=== PATIENT | male | born 1960 | race Caucasian/White ===

== ENCOUNTER 2016-10-22 07:43 | Inpatient (IN) | payer MEDICARE, OTHER ==
[~2016-10-22] VITALS: Ht 170.2 cm; Wt 73.0 kg
[~2016-10-22 07:43] MED LIST: BP MEDS; CHOLESTEROL MED; DIABETIC PO; METF500T4 PO; unable to recall
[2016-10-22 08:33] VITALS: Ht 170.2 cm; Wt 73.0 kg
[2016-10-22] MEDS ORDERED: VANCOMYCIN 1 GM (PMX) 250 ML IVPB SCH (09:30)
[2016-10-22 10:46] LABS: INR 0.98; POTASSIUM 5.7 mmol/L (3.5-5.1)
[2016-10-22 10:47] LABS: PARTIAL THROMBOPLASTIN TIME 26.8 Sec (25.0-35.0)
[2016-10-22 10:49] LABS: CREATININE 6.1 mg/dl (0.61-1.24)
[2016-10-22 10:50] LABS: CALCIUM 8.7 mg/dl (8.4-10.2)
--- NOTE | 2016-10-22 10:55 | HP ---
Date/Time of Note Date/Time of Note DATE: 10/22/16 TIME: 10:50 Assessment/Plan Assessment/Plan Assessment/Plan 1. End-stage renal disease: - per Dr Mejía - HD- m-w-f 2. Left upper extremity AV graft may have an infection, possible cellulitis. - Vancomycin per pharmacy - Venous doppler 3. Hypercalcemia - Kayexalate 30 gm po x1 4. Diabetes Mellitus - Glycemic control - Renal diet - dietary consult Heparin for DVT prophylaxis. Protonix for peptic ulcer disease prophylaxis. Further recommendations based on clinical course. Plan of care discussed with patient. Dr Tolbert/ Dr Chepe Mejía/staff HPI/ROS Admit Date/Time Admit Date/Time Oct 22, 2016 at 07:43 Hx of Present Illness Mr. Lynch is a 55-year-old gentleman with a history of end-stage renal disease who had underwent a left upper extremity brachial axillary Acuseal PTFE AV graft creation. Unfortunately, we have not seen the patient for some time as he traveled to [place] and had not followed up for his routine fistula surveillance. It seems that the patient has developed some swelling and redness in the inner part of his left upper arm and possibility of a cellulitis/ graft infection. The patient was referred to us for evaluation as he recently is back in town. At the moment, the patient denies shortness of breath, chest pain, nausea, vomiting, fever or chills. ROS Eyes: no complaints ENT: no complaints Respiratory: no complaints Cardiovascular: no complaints Gastrointestinal: no complaints Genitourinary: no complaints Musculoskeletal: other (Left upper arm pain at AV fistula site) Skin: no complaints Neurologic: no complaints Endocrine: no complaints, other (stated his blood sugar is controlled) Lymphatic: no complaints Psychological: no complaints PMH/Family/Social Past Medical History Medical History: diabetes, high cholesterol Social History Alcohol Use: none Smoking Status: Never smoker Drug Use: none Exam/Review of Systems Exam Constitutional: alert, oriented, well developed Psych: nl mood/affect Head: atraumatic Eyes: EOMI, PERRL, nl conjunctiva, nl sclera ENMT: nl external ears & nose Neck: non-tender Respiratory: clear to auscultation Cardiovascular: nl pulses Gastrointestinal: non-tender, soft Musculoskeletal: nl extremities to inspection Extremities: normal pulses, other ( Left upper extremity has palpable brachial pulse. Motor, sensory intact. Cap refill 2 to 3 seconds. Surgical scars are well healed. The graft has bruit and thrill present. In the inner part of the upper arm and the supra-antecubital region and there is an area that has erythema and induration. No active purulence or drainage at the moment.) Neurological: nl mental status, nl speech Skin: other Lymph: nontender Medications Medications Current Medications Vancomycin HCl 250 ml @ 125 mls/hr ONCE IVPB Last administered on 10/22/16t 10 :15; Admin Dose 125 MLS/HR; Start 10/22/16 at 09:30; Stop 10/22/16 at 11:29 Vancomycin HCl (Vancocin) 250 ml @ 125 mls/hr Q96H IVPB ; Start 10/24/16 at 11: 00 DEVAUGHN BRYANT Oct 22, 2016 10:55
[2016-10-22] MEDS ORDERED: DEXTROSE 50% 50 ML SYRINGE IV PRN ×2 (11:30)
[2016-10-22] MEDS ORDERED: ACETAMINOPHEN 325 MG TAB PO PRN (11:30)
[2016-10-22] MEDS ORDERED: ONDANSETRON 4 MG TAB PO PRN (11:30)
[2016-10-22] MEDS ORDERED: VANCOMYCIN IV PER PHARMACY XX SCH (11:30)
[2016-10-22] MEDS ORDERED: GLUCOSE GEL 15 GRAM TUBE PO PRN ×2 (11:30)
[2016-10-22] MEDS ORDERED: GLUCOSE GEL 15 GRAM TUBE BUCCAL PRN (11:30)
[2016-10-22] MEDS ORDERED: GLUCAGON 1 MG INJ IM PRN (11:30)
[2016-10-22] MEDS ORDERED: HYDROCODONE/APAP (5/325) TAB PO PRN (11:30)
--- NOTE | 2016-10-22 12:09 | CONS ---
DATE OF ADMISSION: 10/22/2016 DATE OF CONSULTATION: 10/22/2016 TYPE OF CONSULTATION: Vascular Surgery. Dear Doctors: Mr. Lynch is a 55-year-old gentleman with a history of end-stage renal disease undergoing d ialysis Monday, , Monday, with a history of left upper extremity AV graft. His fistula i s a brach-axillary Acuseal PTFE graft. He has had no issues over the past couple of months as he donohue s been undergoing appropriate hemodialysis sessions. The patient had presented to our office for ev aluation of his fistula after it was identified the patient has erythema and redness around the area of the inner part of the arm where the graft travels. Suspicion of a cellulitis and possible graft infection. Patient also has tenderness over that area in which he was started on vancomycin at his dialysis center. Further, the patient needed to be admitted for evaluation of possible revision o f his AV graft. At the moment, the patient denies shortness of breath, chest pain, nausea, vomiting, fever or chills . Denies left upper extremity claudication or rest pain-like symptoms. PAST MEDICAL HISTORY: Entails hypertension, hyperlipidemia, diabetes, end-stage renal disease on di alysis Monday, and Monday. PAST SURGICAL HISTORY: Multiple left upper extremity AV fistula creations, bilateral cataract surge ry. SOCIAL HISTORY: History of smoking. Denies current use of alcohol, tobacco or illicit drug use. FAMILY HISTORY: Diabetes and hypertension. PHYSICAL EXAMINATION: GENERAL: Alert and oriented x3. No apparent distress. HEENT: Normocephalic, atraumatic. PERRLA, EOMI. Mucosa moist. NECK: Supple. No carotid bruit. PULMONARY: Clear to auscultation bilaterally. No crackles. CARDIOVASCULAR: S1, S2 present. No murmurs. ABDOMEN: Soft, nontender, nondistended. Bowel sounds positive. EXTREMITIES: Left upper extremity palpable brachial pulse. Motor, sensory intact. Cap refill 2 se conds. Surgical scars are well healed. Graft with bruit and thrill present. On the inner aspect o f the graft in the supra-antecubital region with areas of erythema and tenderness along the line of the graft. ASSESSMENT AND PLAN: End-stage renal disease: It seems that the patient's brachial axillary AV gra ft may have been infected. The patient does have cellulitis in that area in which he will require antibiotic treatments for now. We will plan to obtain a CT scan of the left upper extremity to evaluate for any fluid collection ar ound the graft and to evaluate the flow. Optimize vascular status (BP meds, diet, nutrition, exercise, sugar control, antiplatelets). Discussed findings, plan and management with the patient and he understands. Thank you for allowing us to partake in the care of your patient. Please call with any questions. Dictated By: MATTHEW SALGUERO/GILBERTO Conf#: [id number] DID#: [id number]
[2016-10-22 12:12] LABS: BASOPHILS % 0.4 % (0.0-2.0); EOSINOPHILS # 0.2 10^3/ul (0.0-0.5); EOSINOPHILS % 2.5 % (0.0-7.0); HEMATOCRIT 34.8 % (42.0-52.0); HEMOGLOBIN 12.3 g/dl (14.0-18.0); LYMPHOCYTES # 1.2 10^3/ul (0.8-2.9); LYMPHOCYTES % 13.7 % (15.0-51.0); MEAN CORPUSCULAR HEMOGLOBIN 31.9 pg (29.0-33.0); MEAN CORPUSCULAR HGB CONC 35.4 g/dl (32.0-37.0); MEAN CORPUSCULAR VOLUME 90.3 fl (82.0-101.0); MONOCYTE # 0.7 10^3/ul (0.3-0.9); MONOCYTES % 8.5 % (0.0-11.0); NEUTROPHIL # 6.6 10^3/ul (1.6-7.5); NEUTROPHILS % 74.9 % (39.0-77.0); PLATELET COUNT 261 10^3/UL (140-440); RED BLOOD COUNT 3.85 10^6/ul (4.70-6.10); RED CELL DISTRIBUTION WIDTH 14.9 % (11.5-14.5); UNCORRECTED WBC 8.8 10^3/ul (4.8-10.8); WHITE BLOOD COUNT 8.8 10^3/ul (4.8-10.8)
[2016-10-22 12:14] LABS: CONDITION 1; LH ANALYZER COMMENTS 1
[2016-10-22] MEDS: INSULIN ASPART [NOVOLOG] 3 ML PEN SC SCH ×3 (12:15→21:19)
[2016-10-22] MEDS: DOCUSATE SODIUM 100 MG CAP PO SCH ×2 (13:35→21:17)
[2016-10-22] MEDS: AMLODIPINE 10 MG TAB NGT SCH (13:36)
[2016-10-22] MEDS: HEPARIN 5,000 UNIT/0.5 ML SYG SC SCH ×2 (13:48→21:18)
[2016-10-22 14:30] LABS: CHOL/HDL RATIO 3.2 RATIO
--- NOTE | 2016-10-22 17:03 | RADRPT ---
PROCEDURE: US upper extremity Venous. CLINICAL INDICATION: Left arm swelling TECHNIQUE: Multiple sonographic images of the left upper extremity venous system was obtained util izing grayscale, color-flow, compressive sonography and doppler imaging with augmentation. The imag es were reviewed on a PACS workstation. COMPARISON: None. FINDINGS: There is normal compressibility and flow within the left internal jugular vein, subclavian vein, axi llary vein, brachial, basilic, cephalic, radial and ulnar veins. RPTAT: AA IMPRESSION: No sonographic evidence for venous thrombosis. RPTAT:AAJJ of Marcus Early Physician Date Time Electronically viewed and signed by Physician Maria Elena on 10/22/2016 17:02 ROSARIO/
[2016-10-22 19:29] VITALS: BP 117/59; RESP 16
[2016-10-22] MEDS: ATORVASTATIN 10 MG TAB PO SCH (21:17)
[2016-10-23] MEDS: ACCUCHECK XX SCH (02:00)
[2016-10-23 06:42] LABS: BASOPHILS % 0.4 % (0.0-2.0); EOSINOPHILS # 0.3 10^3/ul (0.0-0.5); EOSINOPHILS % 4.1 % (0.0-7.0); HEMATOCRIT 31.7 % (42.0-52.0); HEMOGLOBIN 11.1 g/dl (14.0-18.0); LYMPHOCYTES # 1.2 10^3/ul (0.8-2.9); LYMPHOCYTES % 15.6 % (15.0-51.0); MEAN CORPUSCULAR HEMOGLOBIN 31.7 pg (29.0-33.0); MEAN CORPUSCULAR HGB CONC 35.2 g/dl (32.0-37.0); MEAN CORPUSCULAR VOLUME 90.1 fl (82.0-101.0); MEAN PLATELET VOLUME 7.8 fl (7.4-10.4); MONOCYTE # 0.6 10^3/ul (0.3-0.9); MONOCYTES % 8.4 % (0.0-11.0); NEUTROPHIL # 5.4 10^3/ul (1.6-7.5); NEUTROPHILS % 71.5 % (39.0-77.0); PLATELET COUNT 254 10^3/UL (140-440); RED BLOOD COUNT 3.51 10^6/ul (4.70-6.10); RED CELL DISTRIBUTION WIDTH 14.6 % (11.5-14.5); UNCORRECTED WBC 7.5 10^3/ul (4.8-10.8); WHITE BLOOD COUNT 7.5 10^3/ul (4.8-10.8)
[2016-10-23 06:45] LABS: CONDITION 1; LH ANALYZER COMMENTS 1
[2016-10-23 06:52] LABS: POTASSIUM 5.4 mmol/L (3.5-5.1)
[2016-10-23 06:55] LABS: CREATININE 7.22 mg/dl (0.61-1.24)
[2016-10-23 06:56] LABS: CALCIUM 8.4 mg/dl (8.4-10.2)
[2016-10-23 07:32] VITALS: BP 137/77; RESP 18
[2016-10-23] MEDS: DOCUSATE SODIUM 100 MG CAP PO SCH ×2 (08:04→21:20)
[2016-10-23] MEDS: AMLODIPINE 10 MG TAB NGT SCH (08:04)
[2016-10-23] MEDS: INSULIN ASPART [NOVOLOG] 3 ML PEN SC SCH ×4 (08:09→21:00)
[2016-10-23] MEDS: HEPARIN 5,000 UNIT/0.5 ML SYG SC SCH ×2 (08:10→21:21)
[2016-10-23] MEDS ORDERED: NA POLYST SULFON 15 GM/60 ML BTL PO ONE (10:00)
[2016-10-23 19:48] VITALS: BP 170/79; RESP 18
[2016-10-23] MEDS: ATORVASTATIN 10 MG TAB PO SCH (21:20)
[2016-10-24 01:00] VITALS: BP 142/70
[2016-10-24] MEDS: ACCUCHECK XX SCH (02:00)
[2016-10-24 07:41] VITALS: BP 126/72; RESP 16
[2016-10-24] MEDS: DOCUSATE SODIUM 100 MG CAP PO SCH ×2 (08:34→20:27)
--- NOTE | 2016-10-24 08:55 | CONS ---
DATE OF ADMISSION: 10/22/2016 DATE OF CONSULTATION: 10/24/2016 TYPE OF CONSULTATION: Nephrology. REFERRING PHYSICIAN: Dr. Alatorre REASON FOR CONSULTATION: Acute hyperkalemia, end-stage renal disease on hemodialysis for maintenanc e hemodialysis. HISTORY OF PRESENT ILLNESS: This is a 55-year-old male with a past medical history of hypertension, diabetes mellitus, history of end-stage renal disease on hemodialysis Monday, Monday, Monday. T he patient was followed up by vascular surgery, Dr. John Ortiz and was noted to have a left up per extremity AV fistula site cellulitis. He was recommended to have IV antibiotics. The patient w as complaining of pain, swelling, erythema over the AV fistula site. He also had acute hyperkalemia with a potassium of 5.7 on admission so the is ordered to have CT chest angiogram to rule out his A V fistula venous system. Patient is noted to have a headache with some shortness of breath, no chest pain, palpitation, headache, dizziness, blurry vision, constipation, diarrhea, dysuria, increased u rinary frequency. REVIEW OF SYSTEMS: Positive for left upper extremity AV fistula site pain, swelling, erythema. REVIEW OF SYSTEMS: Other 12 point review of systems has been obtained and is negative except what i s mentioned in the history of present illness. PAST MEDICAL HISTORY: Hypertension, hyperlipidemia, diabetes mellitus, end-stage renal disease on h emodialysis Monday, Monday, Monday. PAST SURGICAL HISTORY: Left upper extremity AV fistula. SOCIAL HISTORY: No smoking, alcohol or recreational drug use. FAMILY HISTORY: Noncontributory. PHYSICAL EXAMINATION: VITAL SIGNS: Temperature 97.9, heart rate 65, respirations 16, blood pressure 126/72, saturation 97 % on room air. GENERAL: Awake, alert, in no distress. HEENT: Normal. Oropharynx clear. NECK: Supple, no JVD, no lymphadenopathy. LUNGS: Clear to auscultation. No crackles, no wheezes. HEART: S1, S2, with regular rhythm, no murmur. ABDOMEN: Soft, nontender, nondistended. Bowel sounds are present. EXTREMITIES: No clubbing, cyanosis, or edema. NEUROLOGICAL: Nonfocal, intact. PSYCHIATRIC: Appropriate affect and mood. LABORATORY DATA/DIAGNOSTIC IMAGIN. WBC 7.5, hemoglobin 11.1, platelet count is 254. Sodium 139, potassium 5.4, chloride 98, bicarb mellissa 27, BUN 58, creatinine 7.2, glucose 153, calcium 8.4. PT 13, PTT 26.8, INR 0.98, WBC 7.5, hem oglobin 11.1, platelet count is 254. 2. Doppler venous ultrasounds of the left upper extremities, no deep venous thrombosis. IMPRESSION: This is a 55-year-old male who presented with: 1. Left upper extremity AV fistula site cellulitis. 2. Acute hyperkalemia, potassium 5.9. 3. End-stage renal disease on hemodialysis Monday, Monday, Monday. 4. Anemia of chronic renal disease. 5. History of hypertension. 6. History of hyperlipidemia. 7. History of diabetes mellitus. PLAN: Admission to the med/surg floor. Thank you, Dr. Alatorre, for this consultation. 1. I will arrange the patient's hemodialysis today. His regular schedule for dialysis is Monday, , Monday. 2. Plan is to do a CT chest angiogram with contrast prior to the dialysis, so he can get a dialysis immediately after the CT chest angiogram is done. 3. Continue the other home medications. The patient does not remember his home medication list, so I will start the patient on amlodipine 10 mg p.o. daily and we will use clonidine p.r.n. systolic b lood pressure more than 150. 4. The patient is currently seen on the med/surg floor. We will follow the patient along with his c ourse in the hospital. Dictated By: YA HAZEL MD, KP/GILBERTO Conf#: [id number] DID#: [id number]
[2016-10-24] MEDS: AMLODIPINE 10 MG TAB NGT SCH (09:00)
[2016-10-24] MEDS: INSULIN ASPART [NOVOLOG] 3 ML PEN SC SCH ×4 (09:36→20:42)
[2016-10-24] MEDS: HEPARIN 5,000 UNIT/0.5 ML SYG SC SCH ×2 (09:37→20:29)
--- NOTE | 2016-10-24 10:27 | PN ---
Date/Time of Note Date/Time of Note DATE: 10/24/16 TIME: 10:23 Assessment/Plan Lines/Catheters IV Catheter Type (from [facility]): Saline Lock Briggs in Place (from [facility]): No Assessment/Plan Chief Complaint/Hosp Course -End-stage renal disease: It seems that the patient's brach-axillary AV graft may have been infected. The patient does have cellulitis in that area in which he will require antibiotic treatments for now. -We will plan to obtain a CT scan of the left upper extremity to evaluate for any fluid collection around the graft and to evaluate the flow. -Optimize vascular status (BP meds, diet, nutrition, exercise, sugar control, antiplatelets). -Discussed findings, plan and management with the patient and he understands. -Thank you for allowing us to partake in the care of your patient. Please call with any questions. Problems: Subjective 24 Hr Interval Summary no new vascular events overnight. left arm pain has improved with antibiotics Exam/Review of Systems Vital Signs Vitals Vital Signs Date Time Temp Pulse Resp B/P Pulse Ox O2 Delivery O2 Flow Rate FiO2 10/24/16 07:41 97.9 65 16 126/72 97 Intake and Output 10/23/16 10/23/16 10/24/16 14:59 22:59 06:59 Intake Total 1820 ml 1280 ml Balance 1820 ml 1280 ml Exam Free Text/Dictation GENERAL: Alert and oriented x3 PULMONARY: Clear to auscultation bilaterally CARDIOVASCULAR: S1, S2 present ABDOMEN: Soft, nontender, nondistended. Bowel sounds positive. EXTREMITIES: Left upper extremity palpable brachial pulse. Motor, sensory intact. Cap refill 2 seconds. Surgical scars are well healed. Graft with bruit and thrill present. On the inner aspect of the graft in the supra-antecubital region with areas of erythema and tenderness improved Results Result Diagram: 10/23/16 0515 10/23/16 0515 MATTHEW HUGHES MD Oct 24, 2016 10:27
[2016-10-24] MEDS ORDERED: VANCOMYCIN 1 GM (PMX) 250 ML IVPB SCH (11:00)
[2016-10-24] MEDS ORDERED: IOHEXOL 100 ML ONE (15:44)
[2016-10-24] MEDS ORDERED: SOD CHLORIDE 0.9% 100 ML ONE (15:44)
[2016-10-24] MEDS ORDERED: IOHEXOL 350MG/ML 50 ML BTL ONE (15:44)
[2016-10-24] MEDS ORDERED: hydrALAzine 20 MG INJ IV PRN (18:30)
[2016-10-24] MEDS: LEVOFLOXACIN 750 MG TABLET GTB SCH (18:43)
--- NOTE | 2016-10-24 19:22 | CONS ---
DATE OF ADMISSION: 10/22/2016 DATE OF CONSULTATION: 10/24/2016 TYPE OF CONSULTATION: Infectious disease. REASON FOR CONSULTATION: Antibiotic management. HISTORY OF PRESENT ILLNESS: Grayson Lynch is a 55-year-old male with numerous pro blems including end-stage renal disease and now comes in with possible cellulitis of his AV graft. His past problems include: 1. End-stage renal disease. 2. Left upper extremity AV graft. 3. Hypercalcemia. 4. Adult-onset diabetes mellitus. 5. Hypercholesterolemia. Acutely, the patient traveled to [place], did not follow up for his routine fistula surveillance, a nd then developed swelling and redness in the mid part of his left upper arm, possibility of graft c ellulitis/graft infection. He was referred to us for evaluation. On admission, his white count was 8.8, H and H 12.3 and 34.8, platelet count 251,000. White count today is 7.5. BUN and creatinine is 58/7.22. The extremity study shows no sonographic evidence for venous thrombosis. Blood culture s are negative. The patient was started on vancomycin. PAST MEDICAL HISTORY: Operations as outlined. FAMILY HISTORY: Noncontributory. SOCIAL HISTORY: He does not smoke, drink, or abuse drugs. ALLERGIES: NONE TO PENICILLIN, SULFA, OR FOODS. MEDICATIONS: Per chart. REVIEW OF SYSTEMS: As per HPI. PHYSICAL EXAMINATION: GENERAL: The patient is a well-developed, well-nourished male who is alert, responsive, in no acute distress. VITAL SIGNS: Stable. He is afebrile. SKIN: Without generalized rash. HEENT: Within normal limits. NECK: Supple. LYMPH NODES: None palpable. CHEST: Decreased breath sounds at the bases. HEART: Without murmur or gallop. ABDOMEN: Soft, nontender without organosplenomegaly or masses. EXTREMITIES: Normal pulses. His left upper extremity has palpable brachial pulse. Surgical scars are well healed. Graft has a bruit and thrill. In the inner part of the arm and antecubital region , there is an area of erythema and induration. No active purulence. RECTAL AND GENITAL: Deferred. NEUROLOGIC: No focal neurological abnormality. HOSPITAL COURSE: The patient was seen in consultation by Dr. Ortiz. He felt that the brachial axillary AV graft may have been infected. He had cellulitis in the area, which will require treatme nt for now. A CT scan of the left upper extremity was ordered to evaluate any fluid collection arou nd the graft and to evaluate the flow. He was seen today by Dr. Ortiz and his white count is 7. 5. The erythema and tenderness have improved somewhat for today. We will await the CT scan. I hui l dictate my findings to Dr. Ya Mejía and Dr. Ortiz. Dictated By: VIRGIE MADISON MD, JD/NTS Conf#: [id number] DID#: [id number] CC: YA MEJÍA MD;*EndCC*
[2016-10-24 20:09] VITALS: BP 169/81; RESP 18
[2016-10-24] MEDS: ATORVASTATIN 10 MG TAB PO SCH (20:27)
[2016-10-24] MEDS: VANCOMYCIN 1 GM (PMX) 250 ML IVPB SCH (20:42)
--- NOTE | 2016-10-24 21:41 | PN ---
DATE: 10/24/2016 SUBJECTIVE: Follow up on 55-year-old gentleman with end-stage renal disease. The patient with poss ible infected left upper extremity arteriovenous graft. The patient is currently undergoing hemodia lysis. Denies any fever, denies chills, denies nausea, vomiting, constipation, diarrhea. OBJECTIVE: VITAL SIGNS: Temperature 97.9, pulse is 65, blood pressure 116/72, respiratory rate 16, oxygen satu ration 97% on room air. GENERAL: Well-developed, well-nourished male in no acute distress. HEENT: Head is atraumatic, normocephalic. PERRLA. NECK: Supple. No mass or thyromegaly. LUNGS: Clear bilaterally. There are no rhonchi, wheezes, rales noted. HEART: Normal S1, S2. No murmurs, gallops, clicks, rubs noted. ABDOMEN: Round, soft, nondistended, nontender. Bowel sounds present. EXTREMITIES: No edema, clubbing, cyanosis. Pulses equal bilaterally. The patient has a left upper extremity with arteriovenous graft. SKIN: No rash, petechiae noted. NEUROLOGIC: The patient is awake, alert, and oriented x3. ASSESSMENT AND PLAN: 1. Cellulitis at the site of arteriovenous graft and possible infection. The patient is currently on vancomycin. Will ask Dr. Peguero to see patient in infectious disease consultation. Continue van comycin and add Levaquin for gram-negative judi coverage. 2. End-stage renal disease. Continue hemodialysis. Dr. Mejía is following the patient in nephrolo gy consultation. 3. Status post right brachial axillary arteriovenous graft done by Dr. Ortiz. Dr. Ortiz is following in vascular surgery consultation. Plan for CT scan of the left upper extremity to evalua te for any fluid collection. 4. Hypertension. Continue Norvasc, clonidine, and hydralazine p.r.n. for systolic blood pressure a yesica 170. 5. Diabetes mellitus type 2 with hemoglobin A1c 7.6. The patient stated that he does not take any diabetes medication. Stated that he is as adequate blood sugar control at home. We will continue N ovoLog per mild algorithm sliding scale. 6. Hyperlipidemia. Continue Lipitor. 7. We will continue heparin for deep venous thrombosis prophylaxis. Further recommendations based on clinical course. Plan of care discussed with Dr. Ivy. Dictated By: KADEEM LEIGH ENVIRONMENTAL HEALTH SPECIALIST for DICKSON IVY MD SR/NTS Conf#: [id number] DID#: [id number] CC: YA MEJÍA MD;*EndCC*
--- NOTE | 2016-10-24 23:14 | RADRPT ---
PROCEDURE: US left upper extremity arterial system. CLINICAL INDICATION: Left upper extremity pain and swelling. Occluded left upper extremity dialysi s graft. TECHNIQUE: Multiple longitudinal and transverse images of the left upper extremity arterial tree a n dialysis graft was obtained with ledbetter scale pulsed Doppler, and color Doppler imaging. COMPARISON: None available FINDINGS: The left subclavian artery, axillary artery and brachial artery are all normal. There is no thrombu s or occlusion. There is no significant stenosis. There is a dialysis graft extending from the left brachial artery to adjacent vein. The graft is co mpletely occluded. Peak systolic velocities are as follows: Subclavian: 99 cm/sec Axillary: 75 cm/sec Brachial: 121 cm/sec Dialysis graft: Occluded. IMPRESSION: 1. Occluded dialysis graft. 2. Otherwise normal arterial system of the left upper extremity. RPTAT: QQ .Dayron Joel MD, Date Time Electronically viewed and signed by .Dayron Joel MD, on 10/24/2016 23:14 .R/
[2016-10-25] VITALS (10 sets, daily range): BP systolic 72–173; BP diastolic 40–92; PULSE 62–78; RESP 18–20
[2016-10-25] MEDS: ACCUCHECK XX SCH (02:23)
[2016-10-25 06:36] LABS: POTASSIUM 5.2 mmol/L (3.5-5.1)
[2016-10-25 06:39] LABS: CALCIUM 7.8 mg/dl (8.4-10.2); CREATININE 7.84 mg/dl (0.61-1.24)
[2016-10-25 06:59] LABS: BASOPHILS % 0.2 % (0.0-2.0); EOSINOPHILS # 0.2 10^3/ul (0.0-0.5); EOSINOPHILS % 1.7 % (0.0-7.0); HEMATOCRIT 33.1 % (42.0-52.0); HEMOGLOBIN 11.4 g/dl (14.0-18.0); LYMPHOCYTES # 0.9 10^3/ul (0.8-2.9); LYMPHOCYTES % 8.6 % (15.0-51.0); MEAN CORPUSCULAR HEMOGLOBIN 31.8 pg (29.0-33.0); MEAN CORPUSCULAR HGB CONC 34.4 g/dl (32.0-37.0); MEAN CORPUSCULAR VOLUME 92.5 fl (82.0-101.0); MEAN PLATELET VOLUME 7.7 fl (7.4-10.4); MONOCYTE # 0.6 10^3/ul (0.3-0.9); MONOCYTES % 5.8 % (0.0-11.0); NEUTROPHIL # 8.4 10^3/ul (1.6-7.5); NEUTROPHILS % 83.7 % (39.0-77.0); PLATELET COUNT 249 10^3/UL (140-440); RED BLOOD COUNT 3.58 10^6/ul (4.70-6.10); RED CELL DISTRIBUTION WIDTH 14.6 % (11.5-14.5)
[2016-10-25 07:13] LABS: CONDITION 1; LH ANALYZER COMMENTS 1
[2016-10-25] MEDS: INSULIN ASPART [NOVOLOG] 3 ML PEN SC SCH ×4 (07:57→20:11)
--- NOTE | 2016-10-25 08:26 | CONS ---
Date/Time of Note Date/Time of Note DATE: 10/25/16 TIME: 08:22 Assessment/Plan Assessment/Plan Additional Assessment/Plan 1. Left upper extremity AV Graft site cellulitis. 2. LUE AVG clotted 2. Acute hyperkalemia 3. End-stage renal disease on hemodialysis Monday, Monday, Monday. 4. Anemia of chronic renal disease. 5. History of hypertension. 6. History of hyperlipidemia. 7. History of diabetes mellitus. Plan: on IV abx Pt left Upper extremity AVG clotted, did not get HD yesterday K 5.2, plan for HD today after juanito catheter placement Dr.Sammy Ortiz is planning to do AVG declotting later after getting HD today will continu eto follow up pt regular schedule for HD is MWF Consultation Date/Type/Reason Admit Date/Time Oct 22, 2016 at 07:43 Initial Consult Date Type of Consultation: NEPHROLOGY Reason for Consultation ESRD on HD, with Clotted AVF and AVG site cellultiis Referring Provider: DICKSON IVY MD 24 HR Interval Summary Free Text/Dictation pt afebrile, no complaints, BP stable, AVG left is clotted,did not get HD yesterday Exam/Review of Systems Vital Signs Vitals Vital Signs Date Time Temp Pulse Resp B/P Pulse Ox O2 Delivery O2 Flow Rate FiO2 10/25/16 07:49 97.7 69 20 148/77 100 Intake and Output 10/24/16 10/24/16 10/25/16 15:00 23:00 07:00 Intake Total 2640 ml 780 ml Balance 2640 ml 780 ml Exam GENERAL: Awake, alert, in no distress. HEENT: Normal. Oropharynx clear. NECK: Supple, no JVD, no lymphadenopathy. LUNGS: Clear to auscultation. No crackles, no wheezes. HEART: S1, S2, with regular rhythm, no murmur. ABDOMEN: Soft, nontender, nondistended. Bowel sounds are present. EXTREMITIES: No clubbing, cyanosis, or edema. LUE AVG site cellulitis, No bruit /no thrill NEUROLOGICAL: Nonfocal, intact. PSYCHIATRIC: Appropriate affect and mood. Results Result Diagram: 10/25/16 0525 10/25/16 0525 Results 24 hrs Laboratory Tests Test 10/24/16 12:01 10/24/16 17:07 10/24/16 20:25 10/25/16 02:22 Bedside Glucose 138 114 207 148 Test 10/25/16 05:25 10/25/16 07:50 Anion Gap 21 H Basophils # 0.0 Basophils % 0.2 Blood Morphology Comment Blood Urea Nitrogen 73 H Calcium Level 7.8 L Carbon Dioxide Level 22 Chloride Level 98 Creatinine 7.84 H Eosinophils # 0.2 Eosinophils % 1.7 Glucose Level 124 Hematocrit 33.1 L Hemoglobin 11.4 L Lymphocytes # 0.9 Lymphocytes % 8.6 L Mean Corpuscular Hemoglobin 31.8 Mean Corpuscular Hemoglobin Concent 34.4 Mean Corpuscular Volume 92.5 Mean Platelet Volume 7.7 Monocytes # 0.6 Monocytes % 5.8 Neutrophils # 8.4 H Neutrophils % 83.7 H Nucleated Red Blood Cells # 0.0 Nucleated Red Blood Cells % 0.0 Platelet Count 249 Potassium Level 5.2 H Red Blood Count 3.58 L Red Cell Distribution Width 14.6 H Sodium Level 136 White Blood Count 10.0 # Bedside Glucose 127 Medications Medications Current Medications Diagnostic Test (Pha) (Accucheck) 1 ea 02 XX Last administered on 10/25/16 02: 23; Admin Dose 1 EA; Start 10/23/16 at 02:00 Miscellaneous Information 1 ea NOTE XX ; Start 10/22/16 at 11:30 Glucose (Glutose) 15 gm Q15M PRN PO DECREASED GLUCOSE; Start 10/22/16 at 11:30 Glucose (Glutose) 22.5 gm Q15M PRN PO DECREASED GLUCOSE; Start 10/22/16 at 11: 30 Dextrose (D50w Syringe) 25 ml Q15M PRN IV DECREASED GLUCOSE; Start 10/22/16 at 11:30 Dextrose (D50w Syringe) 50 ml Q15M PRN IV DECREASED GLUCOSE; Start 10/22/16 at 11:30 Glucagon (Glucagen) 1 mg Q15M PRN IM DECREASED GLUCOSE; Start 10/22/16 at 11:30 Glucose (Glutose) 15 gm Q15M PRN BUCCAL DECREASED GLUCOSE; Start 10/22/16 at 11 :30 Heparin Sodium (Porcine) (Heparin (5000 Units/0.5 ml)) 5,000 unit BID SC Last administered on 10/24/16 20:29; Admin Dose 5,000 UNIT; Start 10/22/16 at 11:30 Amlodipine Besylate (Norvasc) 10 mg DAILY NGT Last administered on 10/23/16 08 :04; Admin Dose 10 MG; Start 10/22/16 at 11:30 Clonidine (Catapres) 0.1 mg Q4H PRN PO ELEVATED SYSTOLIC BP; Start 10/22/16 at 11:30 Acetaminophen (Tylenol Tab) 650 mg Q6H PRN PO PAIN AND OR ELEVATED TEMP; Start 10/22/16 at 11:30 Acetaminophen/ Hydrocodone Bitart ([place] (5/325)) 1 tab Q6H PRN PO PAIN LEVEL 6 -10; Start 10/22/16 at 11:30 Docusate Sodium (Colace) 100 mg BID PO Last administered on 10/24/16 20:27; Admin Dose 100 MG; Start 10/22/16 at 11:30 Ondansetron HCl (Zofran Tab) 4 mg Q6H PRN PO NAUSEA AND/OR VOMITING; Start at 11:30 Atorvastatin Calcium 10 mg 10 mg HS PO Last administered on 10/24/16 20:27; Admin Dose 10 MG; Start 10/22/16 at 21:00 Vancomycin HCl (Vancocin) 250 ml @ 125 mls/hr Q96H IVPB Last administered on 20:42; Admin Dose 125 MLS/HR; Start 10/24/16 at 20:00 Levofloxacin (Levaquin) 750 mg Q48H GTB Last administered on 10/24/16 18:43; Admin Dose 750 MG; Start 10/24/16 at 18:30 Hydralazine HCl (Apresoline) 10 mg Q6 PRN IV SBP>170; Start 10/24/16 at 18:30 YA HAZEL MD Oct 25, 2016 08:26
[2016-10-25] MEDS: HEPARIN 5,000 UNIT/0.5 ML SYG SC SCH ×3 (09:00→20:12)
[2016-10-25] MEDS: AMLODIPINE 10 MG TAB NGT SCH (09:00)
--- NOTE | 2016-10-25 09:41 | OPR ---
Date/Time of Note Date/Time of Note DATE: 10/25/16 TIME: 09:39 Operative Report Free Text/Dictation DATE OF OPERATION: 10/25/2016 SURGEON: John Hughes MD PREOPERATIVE DIAGNOSIS: ESRD, thrombosed right upper extremity AVG POSTOPERATIVE DIAGNOSIS: same ANESTHESIA: Local BLOOD LOSS: minimal COMPLICATIONS: None. ACCESS: Right common femoral vein INDICATIONS: This is a 55 year-old male with ESRD requiring urgent dialysis. Patient and family have been informed of the alternatives, risks, and benefits. Risks including but not limited to bleeding, thrombosis, embolization, myocardial infarction, , device malfunction, infection, pneumothorax, nephrotoxicity and patient has agreed to proceed. PROCEDURE: 1. Ultrasound guided access of right common femoral vein 2. Emergent Right common femoral vein non-tunneled hemodialysis catheter placement DESCRIPTION: The patient was in supine position in his bed. Bed was placed in slight Trendelenburg position and the groin was prepped and draped with sterile technique. The central catheter was flushed with heparin to ensure function of each port. Landmarks were identified and the skin entry site was chosen using ultrasound guidance. The skin And subcutaneous tissue were anesthetized with 1% lidocaine. The vein was then located with a needle with a 10 mL syringe using ultrasound guidance. The needle was then directed towards the vein and was entered. The needle position was secured and syringe was removed. The hub was occluded to prevent venous air embolus. The guidewire was passed easily and the needle was removed while the wire was held in place. A small incision was then made at the point of the wire entry. The dilator was placed over the wire and the tract gently dilated. The catheter was fed over the wire, ensuring the wire exited from the port before advancing the catheter. The catheter was inserted to the desired depth and the wire removed. Each port was aspirated to ensure adequate blood flow and then flushed with heparinized saline solution. The catheter was secured in place with a 2-0 nylon suture and a sterile dressing was applied. The patient tolerated the procedure well and was in stable condition. All instrument, sponge and needle counts were correct 2. JOHN HUGHES MD Oct 25, 2016 09:41
--- NOTE | 2016-10-25 11:09 | RADRPT ---
PROCEDURE: CTA left upper extremity CLINICAL INDICATION: Left upper extremity pain, history of left upper extremity dialysis graft, wi th possible infection.. TECHNIQUE: 2.5 mm axial images were obtained through the left upper extremity after the IV adminis tration of 80 cc Visipaque 320 IV contrast. 3-D, coronal and sagittal reconstructions were obtained . DLP = 1810.3 mGy-cm. CTDiVol = 23.11 mGy. COMPARISON: Ultrasound October 24, 2016 FINDINGS: CTA left upper extremity: Scattered mild calcified atherosclerosis is identified in the visualized portions of the thoracic ao rta. The origins of the great vessels from the arch of the aorta are widely patent. The visualized proximal portions of the right brachiocephalic artery, right common carotid artery and right subcla vian artery are unremarkable. The visualized proximal portions of the left common carotid artery ar e unremarkable. Scattered minimal calcified atherosclerosis is seen at the origin of the left subclavian artery. Ad ditional mild calcified atherosclerosis is identified in the distal aspect of the left subclavian ar david. The left axillary artery is widely patent and normal appearing. The left brachial artery is widely patent and normal appearing. Thrombosed dialysis graft originates from the distal brachial artery, just above the level of the el bow. Graft inserts into the distal brachial vein in the upper arm. Patent brachial artery bifurcation at the level of the antecubital fossa is identified. Patent comm on trunk of the interosseous and ulnar arteries is identified. Patent common trunk bifurcation is o bserved. Mild to moderate scattered circumferential calcified atherosclerosis is seen throughout the left rad ial artery. The vessel appears to maintain gross patency to the wrist and into the proximal hand. Filling of the the proximal aspect of the proximal aspects of the first and second interdigital bran ches is observed. Scattered mild to moderate circumferential calcified atherosclerosis is identified throughout the ul tiara artery. Ulnar artery appears to main patency through the wrist and hand. Filling of the interd igital branches in the hand is observed. Interosseous artery appears grossly patent into the distal forearm. CT left upper extremity: The osseous structures of the left upper extremity are intact. No gross destructive bony lesions ar e observed. No collections surrounding the dialysis graft are observed. No gross masses or collections are seen in the soft tissues of the left upper extremity. Dependent, subsegmental atelectasis is noted in the visualized lungs. Mild degenerative changes are seen in the visualized spine. The osseous structures of the visualized chest are unremarkable. Visualized portions of the abdomen and pelvis are unremarkable. Degenerative changes are identified in the lumbar spine. IMPRESSION: Mild calcified atherosclerosis in the left subclavian artery. Patent appearing radial and ulnar arteries that extend into the hand. Filling of the interdigital a rteries in the hand is observed. Scattered mild to moderate circumferential calcified atherosclerosis seen throughout the radial and ulnar arteries. Thrombosed brachial - brachial dialysis graft in the left upper arm. No gross visualized soft tissu e abnormality, mass or collection adjacent to the dialysis graft. RPTAT: AA .Yang Ruiz MD, Date Time Electronically viewed and signed by .Yang Ruiz MD, on 10/25/2016 11:08 .P/
[2016-10-25] MEDS: DOCUSATE SODIUM 100 MG CAP PO SCH ×2 (11:20→20:06)
--- NOTE | 2016-10-25 14:01 | CONS ---
Date/Time of Note Date/Time of Note DATE: 10/25/16 TIME: 13:57 Assessment/Plan Assessment/Plan Chief Complaint/Hosp Course Alert, feels good, no fevers, nad Indwellings: LUE AVG, R fem permacath Abx: Shaji Saranalejandra Physical examination: GENERAL: The patient is a well-developed, well-nourished male who is alert, responsive, in no acute distress. VITAL SIGNS: Stable. He is afebrile. SKIN: Without generalized rash. HEENT: Within normal limits. NECK: Supple. LYMPH NODES: None palpable. CHEST: Decreased breath sounds at the bases. HEART: Without murmur or gallop. ABDOMEN: Soft, nontender without organosplenomegaly or masses. EXTREMITIES: Normal pulses. His left upper extremity has palpable brachial pulse. Surgical scars are well healed. Graft has a bruit and thrill. In the inner part of the arm and antecubital region, there is an area of erythema and induration. No active purulence. RECTAL AND GENITAL: Deferred. NEUROLOGIC: No focal neurological abnormality. Assessment: 1. Cellulitis at AVG site==> improved 2. ESRD 3. DM 4. Anemia Plan: Stable, no erythema to AVG site, no fevers, continue abx, HD, vascular surgery rec-s DWpt/staff Problems: Consultation Date/Type/Reason Admit Date/Time Oct 22, 2016 at 07:43 Initial Consult Date Type of Consultation: ID Referring Provider: DICKSON IVY MD Exam/Review of Systems Vital Signs Vitals Vital Signs Date Time Temp Pulse Resp B/P Pulse Ox O2 Delivery O2 Flow Rate FiO2 10/25/16 11:19 64 18 147/77 10/25/16 09:44 99 10/25/16 07:49 97.7 Intake and Output 10/24/16 10/24/16 10/25/16 15:00 23:00 07:00 Intake Total 2640 ml 780 ml Balance 2640 ml 780 ml Results Result Diagram: 10/25/16 0525 10/25/16 0525 Results 24 hrs Laboratory Tests Test 10/24/16 17:07 10/24/16 20:25 10/25/16 02:22 10/25/16 05:25 Bedside Glucose 114 207 148 Anion Gap 21 H Basophils # 0.0 Basophils % 0.2 Blood Morphology Comment Blood Urea Nitrogen 73 H Calcium Level 7.8 L Carbon Dioxide Level 22 Chloride Level 98 Creatinine 7.84 H Eosinophils # 0.2 Eosinophils % 1.7 Glucose Level 124 Hematocrit 33.1 L Hemoglobin 11.4 L Lymphocytes # 0.9 Lymphocytes % 8.6 L Mean Corpuscular Hemoglobin 31.8 Mean Corpuscular Hemoglobin Concent 34.4 Mean Corpuscular Volume 92.5 Mean Platelet Volume 7.7 Monocytes # 0.6 Monocytes % 5.8 Neutrophils # 8.4 H Neutrophils % 83.7 H Nucleated Red Blood Cells # 0.0 Nucleated Red Blood Cells % 0.0 Platelet Count 249 Potassium Level 5.2 H Red Blood Count 3.58 L Red Cell Distribution Width 14.6 H Sodium Level 136 White Blood Count 10.0 # Test 10/25/16 07:50 10/25/16 11:22 Bedside Glucose 127 102 Medications Medications Current Medications Diagnostic Test (Pha) (Accucheck) 1 ea 02 XX Last administered on 10/25/16 02: 23; Admin Dose 1 EA; Start 10/23/16 at 02:00 Miscellaneous Information 1 ea NOTE XX ; Start 10/22/16 at 11:30 Glucose (Glutose) 15 gm Q15M PRN PO DECREASED GLUCOSE; Start 10/22/16 at 11:30 Glucose (Glutose) 22.5 gm Q15M PRN PO DECREASED GLUCOSE; Start 10/22/16 at 11: 30 Dextrose (D50w Syringe) 25 ml Q15M PRN IV DECREASED GLUCOSE; Start 10/22/16 at 11:30 Dextrose (D50w Syringe) 50 ml Q15M PRN IV DECREASED GLUCOSE; Start 10/22/16 at 11:30 Glucagon (Glucagen) 1 mg Q15M PRN IM DECREASED GLUCOSE; Start 10/22/16 at 11:30 Glucose (Glutose) 15 gm Q15M PRN BUCCAL DECREASED GLUCOSE; Start 10/22/16 at 11 :30 Heparin Sodium (Porcine) (Heparin (5000 Units/0.5 ml)) 5,000 unit BID SC Last administered on 10/24/16 20:29; Admin Dose 5,000 UNIT; Start 10/22/16 at 11:30 Amlodipine Besylate (Norvasc) 10 mg DAILY NGT Last administered on 10/23/16 08 :04; Admin Dose 10 MG; Start 10/22/16 at 11:30 Clonidine (Catapres) 0.1 mg Q4H PRN PO ELEVATED SYSTOLIC BP; Start 10/22/16 at 11:30 Acetaminophen (Tylenol Tab) 650 mg Q6H PRN PO PAIN AND OR ELEVATED TEMP; Start 10/22/16 at 11:30 Acetaminophen/ Hydrocodone Bitart ([place] (5/325)) 1 tab Q6H PRN PO PAIN LEVEL 6 -10; Start 10/22/16 at 11:30 Docusate Sodium (Colace) 100 mg BID PO Last administered on 10/25/16 11:20; Admin Dose 100 MG; Start 10/22/16 at 11:30 Ondansetron HCl (Zofran Tab) 4 mg Q6H PRN PO NAUSEA AND/OR VOMITING; Start at 11:30 Atorvastatin Calcium 10 mg 10 mg HS PO Last administered on 10/24/16 20:27; Admin Dose 10 MG; Start 10/22/16 at 21:00 Vancomycin HCl (Vancocin) 250 ml @ 125 mls/hr Q96H IVPB Last administered on 20:42; Admin Dose 125 MLS/HR; Start 10/24/16 at 20:00 Levofloxacin (Levaquin) 750 mg Q48H GTB Last administered on 10/24/16 18:43; Admin Dose 750 MG; Start 10/24/16 at 18:30 Hydralazine HCl (Apresoline) 10 mg Q6 PRN IV SBP>170; Start 10/24/16 at 18:30 GRETA HENRY NP Oct 25, 2016 14:01
--- NOTE | 2016-10-25 17:55 | PN ---
Date/Time of Note Date/Time of Note DATE: 10/25/16 TIME: 17:50 Assessment/Plan VTE Prophylaxis VTE Prophylaxis Intervention: SCD's Lines/Catheters IV [facility] Type (from [facility]): Saline Lock Urinary Cath still in place: No Assessment/Plan Chief Complaint/Hosp Course ASSESSMENT AND PLAN: 1. Cellulitis at the site of arteriovenous graft and possible graft infection. Continue vancomycin and Levaquin Dr. Peguero is following in infectious disease consultation. Continue 2. End-stage renal disease. Continue hemodialysis. Dr. Mejía is following the patient in nephrology consultation. 3. Right brachial axillary arteriovenous graft stenosis. Dr. Ortiz is following in vascular surgery consultation. Status post right femoral hemodialysis catheter placement.Planis for surgical evaluation on . 4. Hypertension. Continue Norvasc, clonidine, and hydralazine p.r.n. for systolic blood pressure above 170. 5. Diabetes mellitus type 2 with hemoglobin A1c 7.6. The patient stated that he does not take any diabetes medication. Stated that he is as adequate blood sugar control at home. Continue NovoLog per mild algorithm sliding scale. 6. Hyperlipidemia. Continue Lipitor. Continue heparin for deep venous thrombosis prophylaxis. Further recommendations based on clinical course. Plan of care discussed with Dr. Alatorre. Problems: Subjective 24 Hr Interval Summary Free Text/Dictation Patient denies any fever nausea vomiting, status post right femoral hemodialysis catheter placement. Exam/Review of Systems Vital Signs Vitals Vital Signs Date Time Temp Pulse Resp B/P Pulse Ox O2 Delivery O2 Flow Rate FiO2 10/25/16 11:19 64 18 147/77 10/25/16 09:44 99 10/25/16 07:49 97.7 Intake and Output 10/24/16 10/24/16 10/25/16 15:00 23:00 07:00 Intake Total 2640 ml 780 ml Balance 2640 ml 780 ml Exam GENERAL: Well-developed, well-nourished male in no acute distress. HEENT: Head is atraumatic, normocephalic. PERRLA. NECK: Supple. No mass or thyromegaly. LUNGS: Clear bilaterally. There are no rhonchi, wheezes, rales noted. HEART: Normal S1, S2. No murmurs, gallops, clicks, rubs noted. ABDOMEN: Round, soft, nondistended, nontender. Bowel sounds present. EXTREMITIES: No edema, clubbing, cyanosis. Pulses equal bilaterally. The patient has a left upper extremity with arteriovenous graft. SKIN: No rash, petechiae noted. NEUROLOGIC: The patient is awake, alert, and oriented x3. Results Result Diagram: 10/25/16 0525 10/25/16 0525 Results 24 hrs Laboratory Tests Test 10/24/16 20:25 10/25/16 02:22 10/25/16 05:25 10/25/16 07:50 Bedside Glucose 207 148 127 Anion Gap 21 H Basophils # 0.0 Basophils % 0.2 Blood Morphology Comment Blood Urea Nitrogen 73 H Calcium Level 7.8 L Carbon Dioxide Level 22 Chloride Level 98 Creatinine 7.84 H Eosinophils # 0.2 Eosinophils % 1.7 Glucose Level 124 Hematocrit 33.1 L Hemoglobin 11.4 L Lymphocytes # 0.9 Lymphocytes % 8.6 L Mean Corpuscular Hemoglobin 31.8 Mean Corpuscular Hemoglobin Concent 34.4 Mean Corpuscular Volume 92.5 Mean Platelet Volume 7.7 Monocytes # 0.6 Monocytes % 5.8 Neutrophils # 8.4 H Neutrophils % 83.7 H Nucleated Red Blood Cells # 0.0 Nucleated Red Blood Cells % 0.0 Platelet Count 249 Potassium Level 5.2 H Red Blood Count 3.58 L Red Cell Distribution Width 14.6 H Sodium Level 136 White Blood Count 10.0 # Test 10/25/16 11:22 10/25/16 17:23 Bedside Glucose 102 113 Medications Medications Current Medications Diagnostic Test (Pha) (Accucheck) 1 ea 02 XX Last administered on 10/25/16t 02: 23; Admin Dose 1 EA; Start 10/23/16 at 02:00 Miscellaneous Information 1 ea NOTE XX ; Start 10/22/16 at 11:30 Glucose (Glutose) 15 gm Q15M PRN PO DECREASED GLUCOSE; Start 10/22/16 at 11:30 Glucose (Glutose) 22.5 gm Q15M PRN PO DECREASED GLUCOSE; Start 10/22/16 at 11: 30 Dextrose (D50w Syringe) 25 ml Q15M PRN IV DECREASED GLUCOSE; Start 10/22/16 at 11:30 Dextrose (D50w Syringe) 50 ml Q15M PRN IV DECREASED GLUCOSE; Start 10/22/16 at 11:30 Glucagon (Glucagen) 1 mg Q15M PRN IM DECREASED GLUCOSE; Start 10/22/16 at 11:30 Glucose (Glutose) 15 gm Q15M PRN BUCCAL DECREASED GLUCOSE; Start 10/22/16 at 11 :30 Heparin Sodium (Porcine) (Heparin (5000 Units/0.5 ml)) 5,000 unit BID SC Last administered on 10/24/16 20:29; Admin Dose 5,000 UNIT; Start 10/22/16 at 11:30 Amlodipine Besylate (Norvasc) 10 mg DAILY NGT Last administered on 10/23/16 08 :04; Admin Dose 10 MG; Start 10/22/16 at 11:30 Clonidine (Catapres) 0.1 mg Q4H PRN PO ELEVATED SYSTOLIC BP; Start 10/22/16 at 11:30 Acetaminophen (Tylenol Tab) 650 mg Q6H PRN PO PAIN AND OR ELEVATED TEMP; Start 10/22/16 at 11:30 Acetaminophen/ Hydrocodone Bitart ([place] (5/325)) 1 tab Q6H PRN PO PAIN LEVEL 6 -10; Start 10/22/16 at 11:30 Docusate Sodium (Colace) 100 mg BID PO Last administered on 10/25/16 11:20; Admin Dose 100 MG; Start 10/22/16 at 11:30 Ondansetron HCl (Zofran Tab) 4 mg Q6H PRN PO NAUSEA AND/OR VOMITING; Start at 11:30 Atorvastatin Calcium 10 mg 10 mg HS PO Last administered on 10/24/16 20:27; Admin Dose 10 MG; Start 10/22/16 at 21:00 Vancomycin HCl (Vancocin) 250 ml @ 125 mls/hr Q96H IVPB Last administered on 20:42; Admin Dose 125 MLS/HR; Start 10/24/16 at 20:00 Levofloxacin (Levaquin) 750 mg Q48H GTB Last administered on 10/24/16 18:43; Admin Dose 750 MG; Start 10/24/16 at 18:30 Hydralazine HCl (Apresoline) 10 mg Q6 PRN IV SBP>170; Start 10/24/16 at 18:30 KADEEM LEIGH Oct 25, 2016 17:55
[2016-10-25] MEDS: ATORVASTATIN 10 MG TAB PO SCH (20:06)
[2016-10-26] VITALS (7 sets, daily range): BP systolic 101–171; BP diastolic 64–85; PULSE 62–71; RESP 18–20
[2016-10-26] MEDS: ACCUCHECK XX SCH (02:01)
[2016-10-26 05:39] LABS: BASOPHILS % 0.1 % (0.0-2.0); EOSINOPHILS # 0.1 10^3/ul (0.0-0.5); EOSINOPHILS % 0.9 % (0.0-7.0); HEMATOCRIT 33.7 % (42.0-52.0); HEMOGLOBIN 11.8 g/dl (14.0-18.0); LYMPHOCYTES # 0.9 10^3/ul (0.8-2.9); LYMPHOCYTES % 7.6 % (15.0-51.0); MEAN CORPUSCULAR HEMOGLOBIN 32.1 pg (29.0-33.0); MEAN CORPUSCULAR HGB CONC 34.9 g/dl (32.0-37.0); MEAN CORPUSCULAR VOLUME 91.9 fl (82.0-101.0); MEAN PLATELET VOLUME 7.5 fl (7.4-10.4); MONOCYTE # 0.9 10^3/ul (0.3-0.9); MONOCYTES % 7.9 % (0.0-11.0); NEUTROPHIL # 9.5 10^3/ul (1.6-7.5); NEUTROPHILS % 83.5 % (39.0-77.0); PLATELET COUNT 234 10^3/UL (140-440); RED BLOOD COUNT 3.67 10^6/ul (4.70-6.10); RED CELL DISTRIBUTION WIDTH 14.7 % (11.5-14.5); UNCORRECTED WBC 11.4 10^3/ul (4.8-10.8); WHITE BLOOD COUNT 11.4 10^3/ul (4.8-10.8)
[2016-10-26 05:42] LABS: POTASSIUM 5.1 mmol/L (3.5-5.1)
[2016-10-26 05:44] LABS: CREATININE 8.34 mg/dl (0.61-1.24); INR 1.06; PARTIAL THROMBOPLASTIN TIME 29.8 Sec (25.0-35.0); PROTIME 13.8 Sec (12.2-14.2); PT RATIO 1.1
[2016-10-26 05:45] LABS: CALCIUM 8.2 mg/dl (8.4-10.2)
[2016-10-26 05:56] LABS: CONDITION 1; LH ANALYZER COMMENTS 1
[2016-10-26] MEDS: INSULIN ASPART [NOVOLOG] 3 ML PEN SC SCH ×4 (07:57→21:00)
[2016-10-26] MEDS: HEPARIN 5,000 UNIT/0.5 ML SYG SC SCH ×2 (07:58→21:00)
[2016-10-26] MEDS: DOCUSATE SODIUM 100 MG CAP PO SCH ×2 (08:24→21:09)
[2016-10-26] MEDS: AMLODIPINE 10 MG TAB NGT SCH (08:25)
--- NOTE | 2016-10-26 08:44 | PN ---
Date/Time of Note Date/Time of Note DATE: 10/26/16 TIME: 08:41 Assessment/Plan Lines/Catheters IV Catheter Type (from [facility]): Saline Lock [facility] in Place (from [facility]): No Assessment/Plan Chief Complaint/Hosp Course -End-stage renal disease: It seems that the patient's brach-axillary AV graft may have been infected. The patient does have cellulitis in that area in which he will require antibiotic treatments for now. Upon CT scan of the left upper extremity there's inflammation around the graft that seem to be concerning. Will schedule patient for thrombectomy and possible revision of the AVG if possible in order to preserve the fistula -Optimize vascular status (BP meds, diet, nutrition, exercise, sugar control, antiplatelets). -Discussed findings, plan and management with the patient and he understands. -Thank you for allowing us to partake in the care of your patient. Please call with any questions. Problems: Subjective 24 Hr Interval Summary pt have fever during dialysis yesterday. Exam/Review of Systems Vital Signs Vitals Vital Signs Date Time Temp Pulse Resp B/P Pulse Ox O2 Delivery O2 Flow Rate FiO2 10/26/16 07:08 98.4 68 20 101/64 99 Intake and Output 10/25/16 10/25/16 10/26/16 15:00 23:00 07:00 Intake Total 1100 ml Output Total 2500 ml Balance -1400 ml Exam Free Text/Dictation GENERAL: Alert and oriented x3 PULMONARY: Clear to auscultation bilaterally CARDIOVASCULAR: S1, S2 present ABDOMEN: Soft, nontender, nondistended. Bowel sounds positive. EXTREMITIES: Left upper extremity palpable brachial pulse. Motor, sensory intact. Cap refill 2 seconds. Surgical scars are well healed. Graft without bruit and thrill. On the inner aspect of the graft in the supra-antecubital region with areas of erythema and tenderness improved but still concerning Results Result Diagram: 10/26/16 0500 10/26/16 050 MATTHEW HUGHES MD Oct 26, 2016 08:44
--- NOTE | 2016-10-26 13:35 | PN ---
Date/Time of Note Date/Time of Note DATE: 10/26/16 TIME: 13:34 Assessment/Plan VTE Prophylaxis VTE Prophylaxis Intervention: SCD's Lines/Catheters [facility] juanito cath Urinary Cath still in place: No Assessment/Plan Chief Complaint/Hosp Course ASSESSMENT AND PLAN: 1. Cellulitis at the site of arteriovenous graft and possible graft infection. Continue vancomycin and Levaquin Dr. Peguero is following in infectious disease consultation. Continue 2. End-stage renal disease. Continue hemodialysis. Dr. Mejía is following the patient in nephrology consultation. 3. Right brachial axillary arteriovenous graft stenosis. Dr. Ortiz is following in vascular surgery consultation. Status post right femoral hemodialysis catheter placement.Planis for surgical evaluation on . 4. Hypertension. Continue Norvasc, clonidine, and hydralazine p.r.n. for systolic blood pressure above 170. 5. Diabetes mellitus type 2 with hemoglobin A1c 7.6. The patient stated that he does not take any diabetes medication. Stated that he is as adequate blood sugar control at home. Continue NovoLog per mild algorithm sliding scale. 6. Hyperlipidemia. Continue Lipitor. Continue heparin for deep venous thrombosis prophylaxis. Further recommendations based on clinical course. Plan of care discussed with Dr. Alatorre. Problems: Subjective 24 Hr Interval Summary Free Text/Dictation Patient denies any fever nausea vomiting, pending hemodialysis via right femoral hemodialysis catheter. Exam/Review of Systems Vital Signs Vitals Vital Signs Date Time Temp Pulse Resp B/P Pulse Ox O2 Delivery O2 Flow Rate FiO2 10/26/16 07:08 98.4 68 20 101/64 99 Intake and Output 10/25/16 10/25/16 10/26/16 15:00 23:00 07:00 Intake Total 1100 ml Output Total 2500 ml Balance -1400 ml Exam GENERAL: Well-developed, well-nourished male in no acute distress. HEENT: Head is atraumatic, normocephalic. PERRLA. NECK: Supple. No mass or thyromegaly. LUNGS: Clear bilaterally. There are no rhonchi, wheezes, rales noted. HEART: Normal S1, S2. No murmurs, gallops, clicks, rubs noted. ABDOMEN: Round, soft, nondistended, nontender. Bowel sounds present. EXTREMITIES: No edema, clubbing, cyanosis. Pulses equal bilaterally. The patient has a left upper extremity with arteriovenous graft. SKIN: No rash, petechiae noted. NEUROLOGIC: The patient is awake, alert, and oriented x3. Results Result Diagram: 10/26/16 0500 10/26/16 0500 Results 24 hrs Laboratory Tests Test 10/25/16 17:23 10/25/16 20:05 10/26/16 01:51 10/26/16 05:00 Bedside Glucose 113 224 H 180 Activated Partial Thromboplast Time 29.8 Anion Gap 21 H Basophils # 0.0 Basophils % 0.1 Blood Morphology Comment Blood Urea Nitrogen 64 H Calcium Level 8.2 L Carbon Dioxide Level 24 Chloride Level 98 Creatinine 8.34 H Eosinophils # 0.1 Eosinophils % 0.9 Glucose Level 122 Hematocrit 33.7 L Hemoglobin 11.8 L INR International Normalized Ratio 1.06 Lymphocytes # 0.9 Lymphocytes % 7.6 L Mean Corpuscular Hemoglobin 32.1 Mean Corpuscular Hemoglobin Concent 34.9 Mean Corpuscular Volume 91.9 Mean Platelet Volume 7.5 Monocytes # 0.9 Monocytes % 7.9 Neutrophils # 9.5 H Neutrophils % 83.5 H Nucleated Red Blood Cells # 0.0 Nucleated Red Blood Cells % 0.0 Platelet Count 234 Potassium Level 5.1 Prothrombin Time 13.8 Prothrombin Time Ratio 1.1 Red Blood Count 3.67 L Red Cell Distribution Width 14.7 H Sodium Level 138 White Blood Count 11.4 H Test 10/26/16 07:57 10/26/16 11:46 Bedside Glucose 127 284 H Medications Medications Current Medications Diagnostic Test (Pha) (Accucheck) 1 ea 02 XX Last administered on 10/26/16t 02: 01; Admin Dose 1 EA; Start 10/23/16 at 02:00 Miscellaneous Information 1 ea NOTE XX ; Start 10/22/16 at 11:30 Glucose (Glutose) 15 gm Q15M PRN PO DECREASED GLUCOSE; Start 10/22/16 at 11:30 Glucose (Glutose) 22.5 gm Q15M PRN PO DECREASED GLUCOSE; Start 10/22/16 at 11: 30 Dextrose (D50w Syringe) 25 ml Q15M PRN IV DECREASED GLUCOSE; Start 10/22/16 at 11:30 Dextrose (D50w Syringe) 50 ml Q15M PRN IV DECREASED GLUCOSE; Start 10/22/16 at 11:30 Glucagon (Glucagen) 1 mg Q15M PRN IM DECREASED GLUCOSE; Start 10/22/16 at 11:30 Glucose (Glutose) 15 gm Q15M PRN BUCCAL DECREASED GLUCOSE; Start 10/22/16 at 11 :30 Heparin Sodium (Porcine) (Heparin (5000 Units/0.5 ml)) 5,000 unit BID SC Last administered on 10/25/16 20:12; Admin Dose 5,000 UNIT; Start 10/22/16 at 11:30 Amlodipine Besylate (Norvasc) 10 mg DAILY NGT Last administered on 10/23/16 08 :04; Admin Dose 10 MG; Start 10/22/16 at 11:30 Clonidine (Catapres) 0.1 mg Q4H PRN PO ELEVATED SYSTOLIC BP; Start 10/22/16 at 11:30 Acetaminophen (Tylenol Tab) 650 mg Q6H PRN PO PAIN AND OR ELEVATED TEMP; Start 10/22/16 at 11:30 Acetaminophen/ Hydrocodone Bitart ([place] (5/325)) 1 tab Q6H PRN PO PAIN LEVEL 6 -10; Start 10/22/16 at 11:30 Docusate Sodium (Colace) 100 mg BID PO Last administered on 10/25/16 20:06; Admin Dose 100 MG; Start 10/22/16 at 11:30 Ondansetron HCl (Zofran Tab) 4 mg Q6H PRN PO NAUSEA AND/OR VOMITING; Start at 11:30 Atorvastatin Calcium 10 mg 10 mg HS PO Last administered on 10/25/16 20:06; Admin Dose 10 MG; Start 10/22/16 at 21:00 Vancomycin HCl (Vancocin) 250 ml @ 125 mls/hr Q96H IVPB Last administered on 20:42; Admin Dose 125 MLS/HR; Start 10/24/16 at 20:00 Levofloxacin (Levaquin) 750 mg Q48H GTB Last administered on 10/24/16 18:43; Admin Dose 750 MG; Start 10/24/16 at 18:30 Hydralazine HCl (Apresoline) 10 mg Q6 PRN IV SBP>170; Start 10/24/16 at 18:30 KADEEM LEIGH Oct 26, 2016 13:35
--- NOTE | 2016-10-26 15:52 | PN ---
DATE: 10/26/2016 SUBJECTIVE: Infectious disease progress note. No acute changes. The patient is awake, feels good. Denies pain, discomfort. No fevers. VITAL SIGNS: Stable. INDWELLINGS: Right upper thigh PermCath, left upper extremity AV fistula. ANTIMICROBIALS: 1. Vancomycin. 2. Levaquin. LABORATORY DATA: WBC 11.4, platelets 234, neutrophils 83.5. PHYSICAL EXAMINATION: GENERAL: Well-developed, middle-aged man who is alert in no distress. HEENT: Head atraumatic, normocephalic. Sclerae anicteric. Buccal mucosa pink. NECK: Supple, trachea midline. CHEST: Rise symmetrical. Breath sounds clear. HEART: S1, S2. ABDOMEN: Soft, bowel tones present. EXTREMITIES: No cyanosis. Left upper extremity AV graft without erythema at the site. ASSESSMENT: 1. End-stage renal disease. 2. AV graft malfunction with suspicion of infection as per vascular surgery, covered with broad spectrum antibiotics. 3. Diabetes. 4. Anemia. PLAN: The patient remains stable, covered with appropriate antimicrobials, pending thrombectomy of the AV graft by vascular team. Dictated By: GRETA HENRY BUS ANALYST for VIRGIE KEARNEY/GILBERTO Conf#: [id number] DID#: [id number] MTDD
[2016-10-26] MEDS ORDERED: HEPARIN 1000 UNITS/ML 10 ML INJ CATHETER SCH (16:00)
[2016-10-26] MEDS ORDERED: ALBUMIN HUMAN 25% 100 ML IV PRN (16:00)
--- NOTE | 2016-10-26 17:24 | CONS ---
Date/Time of Note Date/Time of Note DATE: 10/26/16 TIME: 17:22 Assessment/Plan Assessment/Plan Additional Assessment/Plan 1. Left upper extremity AV Graft site cellulitis. 2. LUE AVG clotted 2. Acute hyperkalemia now resolved with HD today 3. End-stage renal disease on hemodialysis Monday, Monday, Monday. 4. Anemia of chronic renal disease. 5. History of hypertension. 6. History of hyperlipidemia. 7. History of diabetes mellitus. Plan: on IV abx for possible infected AVG Pt left Upper extremity AVG clotted, had a juanito catheter placed yesterday and had a HD through it Plan for HD today through Juanito catheter vascular surgery planning for AVG surgery tomorrow pt regular schedule for HD is MWF Consultation Date/Type/Reason Admit Date/Time Oct 22, 2016 at 07:43 Type of Consultation: NEPHROLOGY Referring Provider: DICKSON IVY MD 24 HR Interval Summary Free Text/Dictation pt afebrile,no plan for aVG surgery today Plan for HD today Exam/Review of Systems Vital Signs Vitals Vital Signs Date Time Temp Pulse Resp B/P Pulse Ox O2 Delivery O2 Flow Rate FiO2 10/26/16 07:08 98.4 68 20 101/64 99 Intake and Output 10/25/16 10/25/16 10/26/16 15:00 23:00 07:00 Intake Total 1100 ml Output Total 2500 ml Balance -1400 ml Exam GENERAL: Awake, alert, in no distress. HEENT: Normal. Oropharynx clear. NECK: Supple, no JVD, no lymphadenopathy. LUNGS: Clear to auscultation. No crackles, no wheezes. HEART: S1, S2, with regular rhythm, no murmur. ABDOMEN: Soft, nontender, nondistended. Bowel sounds are present. EXTREMITIES: No clubbing, cyanosis, or edema. LUE AVG site cellulitis, No bruit /no thrill NEUROLOGICAL: Nonfocal, intact. PSYCHIATRIC: Appropriate affect and mood. Results Result Diagram: 10/26/16 0500 10/26/16 0500 Results 24 hrs Laboratory Tests Test 10/25/16 17:23 10/25/16 20:05 10/26/16 01:51 10/26/16 05:00 Bedside Glucose 113 224 H 180 Activated Partial Thromboplast Time 29.8 Anion Gap 21 H Basophils # 0.0 Basophils % 0.1 Blood Morphology Comment Blood Urea Nitrogen 64 H Calcium Level 8.2 L Carbon Dioxide Level 24 Chloride Level 98 Creatinine 8.34 H Eosinophils # 0.1 Eosinophils % 0.9 Glucose Level 122 Hematocrit 33.7 L Hemoglobin 11.8 L INR International Normalized Ratio 1.06 Lymphocytes # 0.9 Lymphocytes % 7.6 L Mean Corpuscular Hemoglobin 32.1 Mean Corpuscular Hemoglobin Concent 34.9 Mean Corpuscular Volume 91.9 Mean Platelet Volume 7.5 Monocytes # 0.9 Monocytes % 7.9 Neutrophils # 9.5 H Neutrophils % 83.5 H Nucleated Red Blood Cells # 0.0 Nucleated Red Blood Cells % 0.0 Platelet Count 234 Potassium Level 5.1 Prothrombin Time 13.8 Prothrombin Time Ratio 1.1 Red Blood Count 3.67 L Red Cell Distribution Width 14.7 H Sodium Level 138 White Blood Count 11.4 H Test 10/26/16 07:57 10/26/16 11:46 Bedside Glucose 127 284 H Medications Medications Current Medications Diagnostic Test (Pha) (Accucheck) 1 ea 02 XX Last administered on 10/26/16 02: 01; Admin Dose 1 EA; Start 10/23/16 at 02:00 Miscellaneous Information 1 ea NOTE XX ; Start 10/22/16 at 11:30 Glucose (Glutose) 15 gm Q15M PRN PO DECREASED GLUCOSE; Start 10/22/16 at 11:30 Glucose (Glutose) 22.5 gm Q15M PRN PO DECREASED GLUCOSE; Start 10/22/16 at 11: 30 Dextrose (D50w Syringe) 25 ml Q15M PRN IV DECREASED GLUCOSE; Start 10/22/16 at 11:30 Dextrose (D50w Syringe) 50 ml Q15M PRN IV DECREASED GLUCOSE; Start 10/22/16 at 11:30 Glucagon (Glucagen) 1 mg Q15M PRN IM DECREASED GLUCOSE; Start 10/22/16 at 11:30 Glucose (Glutose) 15 gm Q15M PRN BUCCAL DECREASED GLUCOSE; Start 10/22/16 at 11 :30 Heparin Sodium (Porcine) (Heparin (5000 Units/0.5 ml)) 5,000 unit BID SC Last administered on 10/25/16 20:12; Admin Dose 5,000 UNIT; Start 10/22/16 at 11:30 Amlodipine Besylate (Norvasc) 10 mg DAILY NGT Last administered on 10/23/16 08 :04; Admin Dose 10 MG; Start 10/22/16 at 11:30 Clonidine (Catapres) 0.1 mg Q4H PRN PO ELEVATED SYSTOLIC BP; Start 10/22/16 at 11:30 Acetaminophen (Tylenol Tab) 650 mg Q6H PRN PO PAIN AND OR ELEVATED TEMP; Start 10/22/16 at 11:30 Acetaminophen/ Hydrocodone Bitart ([place] (5/325)) 1 tab Q6H PRN PO PAIN LEVEL 6 -10; Start 10/22/16 at 11:30 Docusate Sodium (Colace) 100 mg BID PO Last administered on 10/25/16 20:06; Admin Dose 100 MG; Start 10/22/16 at 11:30 Ondansetron HCl (Zofran Tab) 4 mg Q6H PRN PO NAUSEA AND/OR VOMITING; Start at 11:30 Atorvastatin Calcium 10 mg 10 mg HS PO Last administered on 10/25/16 20:06; Admin Dose 10 MG; Start 10/22/16 at 21:00 Vancomycin HCl (Vancocin) 250 ml @ 125 mls/hr Q96H IVPB Last administered on 20:42; Admin Dose 125 MLS/HR; Start 10/24/16 at 20:00 Levofloxacin (Levaquin) 750 mg Q48H GTB Last administered on 10/24/16 18:43; Admin Dose 750 MG; Start 10/24/16 at 18:30 Hydralazine HCl (Apresoline) 10 mg Q6 PRN IV SBP>170; Start 10/24/16 at 18:30 YA HAZEL MD Oct 26, 2016 17:24
[2016-10-26] MEDS: LEVOFLOXACIN 750 MG TABLET GTB SCH (17:35)
[2016-10-26] MEDS ORDERED: ALTEPLASE (CATHFLO) 2 MG INJ CATHETER ONE (19:00)
[2016-10-26] MEDS: ATORVASTATIN 10 MG TAB PO SCH (21:09)
[2016-10-27] VITALS (13 sets, daily range): BP systolic 128–162; BP diastolic 61–79; PULSE 68–79; RESP 15–21
[2016-10-27] MEDS: ACCUCHECK XX SCH (02:00)
[2016-10-27 06:22] LABS: BASOPHILS % 0.3 % (0.0-2.0); EOSINOPHILS # 0.2 10^3/ul (0.0-0.5); EOSINOPHILS % 2.6 % (0.0-7.0); HEMATOCRIT 32.3 % (42.0-52.0); HEMOGLOBIN 11.4 g/dl (14.0-18.0); LYMPHOCYTES % 12.5 % (15.0-51.0); MEAN CORPUSCULAR HEMOGLOBIN 32.4 pg (29.0-33.0); MEAN CORPUSCULAR HGB CONC 35.2 g/dl (32.0-37.0); MEAN CORPUSCULAR VOLUME 92.1 fl (82.0-101.0); MEAN PLATELET VOLUME 7.7 fl (7.4-10.4); MONOCYTE # 0.8 10^3/ul (0.3-0.9); MONOCYTES % 9.4 % (0.0-11.0); NEUTROPHIL # 6.3 10^3/ul (1.6-7.5); NEUTROPHILS % 75.2 % (39.0-77.0); PLATELET COUNT 206 10^3/UL (140-440); RED BLOOD COUNT 3.51 10^6/ul (4.70-6.10); RED CELL DISTRIBUTION WIDTH 14.8 % (11.5-14.5); UNCORRECTED WBC 8.3 10^3/ul (4.8-10.8); WHITE BLOOD COUNT 8.3 10^3/ul (4.8-10.8)
[2016-10-27 07:03] LABS: POTASSIUM 5.3 mmol/L (3.5-5.1)
[2016-10-27 07:05] LABS: CREATININE 9.43 mg/dl (0.61-1.24)
[2016-10-27 07:06] LABS: CALCIUM 8.1 mg/dl (8.4-10.2)
[2016-10-27 07:08] LABS: CONDITION 1; LH ANALYZER COMMENTS 1
[2016-10-27] MEDS: INSULIN ASPART [NOVOLOG] 3 ML PEN SC SCH ×4 (07:58→20:56)
--- NOTE | 2016-10-27 08:35 | CONS ---
Date/Time of Note Date/Time of Note DATE: 10/27/16 TIME: 08:29 Assessment/Plan Assessment/Plan Additional Assessment/Plan 1. Left upper extremity AV Graft site cellulitis. 2. LUE AVG clotted 2. Acute hyperkalemia now resolved with HD today 3. End-stage renal disease on hemodialysis Monday, Monday, Monday. 4. Anemia of chronic renal disease. 5. History of hypertension. 6. History of hyperlipidemia. 7. History of diabetes mellitus. Plan: on IV abx for possible infected AVG Pt left Upper extremity AVG clotted, had a juanito catheter placed yesterday and had a HD through it- but it did not work well- had a HD only for 45 minutes , Plan for AVG procedure today by vascular surgery. pt regular schedule for HD is MWF will plan for HD today after AVG surgery Consultation Date/Type/Reason Admit Date/Time Oct 22, 2016 at 07:43 Type of Consultation: NEPHROLOGY Referring Provider: DICKSON IVY MD 24 HR Interval Summary Free Text/Dictation pt juanito HD catheter did not work well-he is scheduled for his AVF surgery, had a HD for 45 minutes yesterday Exam/Review of Systems Vital Signs Vitals Vital Signs Date Time Temp Pulse Resp B/P Pulse Ox O2 Delivery O2 Flow Rate FiO2 10/27/16 08:14 98.4 64 16 137/79 99 Intake and Output 10/26/16 10/26/16 10/27/16 15:00 23:00 07:00 Intake Total 400 ml 260 ml Output Total 400 ml 300 ml Balance 0 ml -40 ml Exam GENERAL: Awake, alert, in no distress. HEENT: Normal. Oropharynx clear. NECK: Supple, no JVD, no lymphadenopathy. LUNGS: Clear to auscultation. No crackles, no wheezes. HEART: S1, S2, with regular rhythm, no murmur. ABDOMEN: Soft, nontender, nondistended. Bowel sounds are present. EXTREMITIES: No clubbing, cyanosis, or edema. LUE AVG site cellulitis, No bruit /no thrill , + juanito HD catheter NEUROLOGICAL: Nonfocal, intact. PSYCHIATRIC: Appropriate affect and mood. Results Result Diagram: 10/27/16 0523 10/27/16 0523 Results 24 hrs Laboratory Tests Test 10/26/16 11:46 2/1/17 17:19 10/26/16 21:08 10/27/16 05:23 Bedside Glucose 284 H 143 163 Anion Gap 24 H Basophils # 0.0 Basophils % 0.3 Blood Morphology Comment Blood Urea Nitrogen 74 H Calcium Level 8.1 L Carbon Dioxide Level 21 Chloride Level 95 L Creatinine 9.43 H Eosinophils # 0.2 Eosinophils % 2.6 Glucose Level 143 Hematocrit 32.3 L Hemoglobin 11.4 L Lymphocytes # 1.0 Lymphocytes % 12.5 L Mean Corpuscular Hemoglobin 32.4 Mean Corpuscular Hemoglobin Concent 35.2 Mean Corpuscular Volume 92.1 Mean Platelet Volume 7.7 Monocytes # 0.8 Monocytes % 9.4 Neutrophils # 6.3 Neutrophils % 75.2 Nucleated Red Blood Cells # 0.0 Nucleated Red Blood Cells % 0.0 Platelet Count 206 Potassium Level 5.3 H Red Blood Count 3.51 L Red Cell Distribution Width 14.8 H Sodium Level 135 White Blood Count 8.3 # Test 10/27/16 07:57 Bedside Glucose 148 Medications Medications Current Medications Diagnostic Test (Pha) (Accucheck) 1 ea 02 XX Last administered on 10/26/16 02: 01; Admin Dose 1 EA; Start 10/23/16 at 02:00 Miscellaneous Information 1 ea NOTE XX ; Start 10/22/16 at 11:30 Glucose (Glutose) 15 gm Q15M PRN PO DECREASED GLUCOSE; Start 10/22/16 at 11:30 Glucose (Glutose) 22.5 gm Q15M PRN PO DECREASED GLUCOSE; Start 10/22/16 at 11: 30 Dextrose (D50w Syringe) 25 ml Q15M PRN IV DECREASED GLUCOSE; Start 10/22/16 at 11:30 Dextrose (D50w Syringe) 50 ml Q15M PRN IV DECREASED GLUCOSE; Start 10/22/16 at 11:30 Glucagon (Glucagen) 1 mg Q15M PRN IM DECREASED GLUCOSE; Start 10/22/16 at 11:30 Glucose (Glutose) 15 gm Q15M PRN BUCCAL DECREASED GLUCOSE; Start 10/22/16 at 11 :30 Heparin Sodium (Porcine) (Heparin (5000 Units/0.5 ml)) 5,000 unit BID SC Last administered on 10/25/16 20:12; Admin Dose 5,000 UNIT; Start 10/22/16 at 11:30 Amlodipine Besylate (Norvasc) 10 mg DAILY NGT Last administered on 10/23/16 08 :04; Admin Dose 10 MG; Start 10/22/16 at 11:30 Clonidine (Catapres) 0.1 mg Q4H PRN PO ELEVATED SYSTOLIC BP Last administered on 10/26/16 21:13; Admin Dose 0.1 MG; Start 10/22/16 at 11:30 Acetaminophen (Tylenol Tab) 650 mg Q6H PRN PO PAIN AND OR ELEVATED TEMP; Start 10/22/16 at 11:30 Acetaminophen/ Hydrocodone Bitart ([place] (5/325)) 1 tab Q6H PRN PO PAIN LEVEL 6 -10; Start 10/22/16 at 11:30 Docusate Sodium (Colace) 100 mg BID PO Last administered on 10/26/16 21:09; Admin Dose 100 MG; Start 10/22/16 at 11:30 Ondansetron HCl (Zofran Tab) 4 mg Q6H PRN PO NAUSEA AND/OR VOMITING; Start at 11:30 Atorvastatin Calcium 10 mg 10 mg HS PO Last administered on 10/26/16 21:09; Admin Dose 10 MG; Start 10/22/16 at 21:00 Vancomycin HCl (Vancocin) 250 ml @ 125 mls/hr Q96H IVPB Last administered on 20:42; Admin Dose 125 MLS/HR; Start 10/24/16 at 20:00 Levofloxacin (Levaquin) 750 mg Q48H GTB Last administered on 10/26/16 17:35; Admin Dose 750 MG; Start 10/24/16 at 18:30 Hydralazine HCl (Apresoline) 10 mg Q6 PRN IV SBP>170; Start 10/24/16 at 18:30 YA HAZEL MD Oct 27, 2016 08:35
[2016-10-27] MEDS: HEPARIN 5,000 UNIT/0.5 ML SYG SC SCH ×2 (08:37→20:58)
[2016-10-27] MEDS: AMLODIPINE 10 MG TAB NGT SCH (08:37)
[2016-10-27] MEDS: DOCUSATE SODIUM 100 MG CAP PO SCH ×2 (08:37→20:57)
--- NOTE | 2016-10-27 09:58 | PN ---
Date/Time of Note Date/Time of Note DATE: 10/27/16 TIME: 09:54 Assessment/Plan VTE Prophylaxis VTE Prophylaxis Intervention: heparin Lines/Catheters IV [facility] juanito cath Central line still needed: Yes Urinary Cath still in place: No Assessment/Plan Assessment/Plan 1. Cellulitis at the site of arteriovenous graft and possible graft infection. Continue vancomycin and Levaquin Dr. Peguero is following in infectious disease consultation. Continue 2. End-stage renal disease. Continue hemodialysis. Dr. Mejía is following the patient in nephrology consultation. 3. Right brachial axillary arteriovenous graft stenosis. Dr. Ortiz is following in vascular surgery consultation. Status post right femoral hemodialysis catheter placement.Planis for surgical evaluation on . 4. Hypertension. Continue Norvasc, clonidine, and hydralazine p.r.n. for systolic blood pressure above 170. 5. Diabetes mellitus type 2 with hemoglobin A1c 7.6. The patient stated that he does not take any diabetes medication. Stated that he is as adequate blood sugar control at home. Continue NovoLog per mild algorithm sliding scale. 6. Hyperlipidemia. Continue Lipitor. 7. Hyperkalemia- per probe operator- HD after thrombectomy today.Am Labs Continue heparin for deep venous thrombosis prophylaxis. Plan for LUE thrombectomy today.Further recommendations based on clinical course. Plan of care discussed with Dr. Alatorre. Subjective 24 Hr Interval Summary Eyes: no complaints ENT: no complaints Respiratory: no complaints Cardiovascular: no complaints, other Gastrointestinal: no complaints Genitourinary: no complaints Musculoskeletal: no complaints Skin: no complaints Neurologic: no complaints Endocrine: no complaints Lymphatic: no complaints Psychological: no complaints Immunologic: no complaints (LUE- AVF not working.Rt groin central line- not working.) Exam/Review of Systems Vital Signs Vitals Vital Signs Date Time Temp Pulse Resp B/P Pulse Ox O2 Delivery O2 Flow Rate FiO2 10/27/16 08:14 98.4 64 16 137/79 99 Intake and Output 10/26/16 10/26/16 10/27/16 15:00 23:00 07:00 Intake Total 400 ml 260 ml Output Total 400 ml 300 ml Balance 0 ml -40 ml Exam Constitutional: alert, oriented, well developed Psych: nl mood/affect Eyes: PERRL, nl sclera ENMT: nl external ears & nose Neck: non-tender Respiratory: clear to auscultation Cardiovascular: nl pulses Gastrointestinal: non-tender, soft Musculoskeletal: nl extremities to inspection Extremities: normal pulses, other Neurological: nl mental status, nl speech Skin: nl turgor Lymph: nontender Results Result Diagram: 10/27/1652210/27/16 05 Results 24 hrs Laboratory Tests Test 10/26/16 11:46 10/26/16 17:19 10/26/16 21:08 10/27/16 05:23 Bedside Glucose 284 H 143 163 Anion Gap 24 H Basophils # 0.0 Basophils % 0.3 Blood Morphology Comment Blood Urea Nitrogen 74 H Calcium Level 8.1 L Carbon Dioxide Level 21 Chloride Level 95 L Creatinine 9.43 H Eosinophils # 0.2 Eosinophils % 2.6 Glucose Level 143 Hematocrit 32.3 L Hemoglobin 11.4 L Lymphocytes # 1.0 Lymphocytes % 12.5 L Mean Corpuscular Hemoglobin 32.4 Mean Corpuscular Hemoglobin Concent 35.2 Mean Corpuscular Volume 92.1 Mean Platelet Volume 7.7 Monocytes # 0.8 Monocytes % 9.4 Neutrophils # 6.3 Neutrophils % 75.2 Nucleated Red Blood Cells # 0.0 Nucleated Red Blood Cells % 0.0 Platelet Count 206 Potassium Level 5.3 H Red Blood Count 3.51 L Red Cell Distribution Width 14.8 H Sodium Level 135 White Blood Count 8.3 # Test 10/27/16 07:57 Bedside Glucose 148 Medications Medications Current Medications Diagnostic Test (Pha) (Accucheck) 1 ea 02 XX Last administered on 10/26/16t 02: 01; Admin Dose 1 EA; Start 10/23/16 at 02:00 Miscellaneous Information 1 ea NOTE XX ; Start 10/22/16 at 11:30 Glucose (Glutose) 15 gm Q15M PRN PO DECREASED GLUCOSE; Start 10/22/16 at 11:30 Glucose (Glutose) 22.5 gm Q15M PRN PO DECREASED GLUCOSE; Start 10/22/16 at 11: 30 Dextrose (D50w Syringe) 25 ml Q15M PRN IV DECREASED GLUCOSE; Start 10/22/16 at 11:30 Dextrose (D50w Syringe) 50 ml Q15M PRN IV DECREASED GLUCOSE; Start 10/22/16 at 11:30 Glucagon (Glucagen) 1 mg Q15M PRN IM DECREASED GLUCOSE; Start 10/22/16 at 11:30 Glucose (Glutose) 15 gm Q15M PRN BUCCAL DECREASED GLUCOSE; Start 10/22/16 at 11 :30 Heparin Sodium (Porcine) (Heparin (5000 Units/0.5 ml)) 5,000 unit BID SC Last administered on 10/25/16 20:12; Admin Dose 5,000 UNIT; Start 10/22/16 at 11:30 Amlodipine Besylate (Norvasc) 10 mg DAILY NGT Last administered on 10/23/16 08 :04; Admin Dose 10 MG; Start 10/22/16 at 11:30 Clonidine (Catapres) 0.1 mg Q4H PRN PO ELEVATED SYSTOLIC BP Last administered on 10/26/16 21:13; Admin Dose 0.1 MG; Start 10/22/16 at 11:30 Acetaminophen (Tylenol Tab) 650 mg Q6H PRN PO PAIN AND OR ELEVATED TEMP; Start 10/22/16 at 11:30 Acetaminophen/ Hydrocodone Bitart ([place] (5/325)) 1 tab Q6H PRN PO PAIN LEVEL 6 -10; Start 10/22/16 at 11:30 Docusate Sodium (Colace) 100 mg BID PO Last administered on 10/26/16 21:09; Admin Dose 100 MG; Start 10/22/16 at 11:30 Ondansetron HCl (Zofran Tab) 4 mg Q6H PRN PO NAUSEA AND/OR VOMITING; Start at 11:30 Atorvastatin Calcium 10 mg 10 mg HS PO Last administered on 10/26/16 21:09; Admin Dose 10 MG; Start 10/22/16 at 21:00 Vancomycin HCl (Vancocin) 250 ml @ 125 mls/hr Q96H IVPB Last administered on 20:42; Admin Dose 125 MLS/HR; Start 10/24/16 at 20:00 Levofloxacin (Levaquin) 750 mg Q48H GTB Last administered on 10/26/16 17:35; Admin Dose 750 MG; Start 10/24/16 at 18:30 Hydralazine HCl (Apresoline) 10 mg Q6 PRN IV SBP>170; Start 10/24/16 at 18:30 DEVAUGHN BRYANT Oct 27, 2016 09:58
[2016-10-27] MEDS: VANCOMYCIN 1 GM (PMX) 250 ML IVPB SCH (14:00)
--- NOTE | 2016-10-27 14:28 | CONS ---
Date/Time of Note Date/Time of Note DATE: 10/27/16 TIME: 14:27 Assessment/Plan Assessment/Plan Chief Complaint/Hosp Course Alert, feels good, no fevers, nad Indwellings: LUE AVG, R fem permacath Abx: Luis Enrique Girard Physical examination: GENERAL: The patient is a well-developed, well-nourished male who is alert, responsive, in no acute distress. VITAL SIGNS: Stable. He is afebrile. SKIN: Without generalized rash. HEENT: Within normal limits. NECK: Supple. LYMPH NODES: None palpable. CHEST: Decreased breath sounds at the bases. HEART: Without murmur or gallop. ABDOMEN: Soft, nontender without organosplenomegaly or masses. EXTREMITIES: Normal pulses. His left upper extremity has palpable brachial pulse. Surgical scars are well healed. Graft has a bruit and thrill. In the inner part of the arm and antecubital region, there is an area of erythema and induration. No active purulence. RECTAL AND GENITAL: Deferred. NEUROLOGIC: No focal neurological abnormality. Assessment: 1. Cellulitis at AVG site==> improved 2. ESRD 3. DM 4. Anemia Plan: Remains stable, no erythema at AVG site, no fevers, continue abx, HD, vascular surgery rec-s DWpt/staff Problems: Consultation Date/Type/Reason Admit Date/Time Oct 22, 2016 at 07:43 Type of Consultation: ID Referring Provider: DICKSON IVY MD Exam/Review of Systems Vital Signs Vitals Vital Signs Date Time Temp Pulse Resp B/P Pulse Ox O2 Delivery O2 Flow Rate FiO2 10/27/16 08:14 98.4 64 16 137/79 99 Intake and Output 10/26/16 10/26/16 10/27/16 15:00 23:00 07:00 Intake Total 400 ml 260 ml Output Total 400 ml 300 ml Balance 0 ml -40 ml Results Result Diagram: 10/27/16 0523 10/27/16 0523 Results 24 hrs Laboratory Tests Test 10/26/16 17:19 10/26/16 21:08 10/27/16 05:23 10/27/16 07:57 Bedside Glucose 143 163 148 Anion Gap 24 H Basophils # 0.0 Basophils % 0.3 Blood Morphology Comment Blood Urea Nitrogen 74 H Calcium Level 8.1 L Carbon Dioxide Level 21 Chloride Level 95 L Creatinine 9.43 H Eosinophils # 0.2 Eosinophils % 2.6 Glucose Level 143 Hematocrit 32.3 L Hemoglobin 11.4 L Lymphocytes # 1.0 Lymphocytes % 12.5 L Mean Corpuscular Hemoglobin 32.4 Mean Corpuscular Hemoglobin Concent 35.2 Mean Corpuscular Volume 92.1 Mean Platelet Volume 7.7 Monocytes # 0.8 Monocytes % 9.4 Neutrophils # 6.3 Neutrophils % 75.2 Nucleated Red Blood Cells # 0.0 Nucleated Red Blood Cells % 0.0 Platelet Count 206 Potassium Level 5.3 H Red Blood Count 3.51 L Red Cell Distribution Width 14.8 H Sodium Level 135 White Blood Count 8.3 # Test 10/27/16 12:02 Bedside Glucose 108 Medications Medications Current Medications Diagnostic Test (Pha) (Accucheck) 1 ea 02 XX Last administered on 10/26/16 02: 01; Admin Dose 1 EA; Start 10/23/16 at 02:00 Miscellaneous Information 1 ea NOTE XX ; Start 10/22/16 at 11:30 Glucose (Glutose) 15 gm Q15M PRN PO DECREASED GLUCOSE; Start 10/22/16 at 11:30 Glucose (Glutose) 22.5 gm Q15M PRN PO DECREASED GLUCOSE; Start 10/22/16 at 11: 30 Dextrose (D50w Syringe) 25 ml Q15M PRN IV DECREASED GLUCOSE; Start 10/22/16 at 11:30 Dextrose (D50w Syringe) 50 ml Q15M PRN IV DECREASED GLUCOSE; Start 10/22/16 at 11:30 Glucagon (Glucagen) 1 mg Q15M PRN IM DECREASED GLUCOSE; Start 10/22/16 at 11:30 Glucose (Glutose) 15 gm Q15M PRN BUCCAL DECREASED GLUCOSE; Start 10/22/16 at 11 :30 Heparin Sodium (Porcine) (Heparin (5000 Units/0.5 ml)) 5,000 unit BID SC Last administered on 10/25/16 20:12; Admin Dose 5,000 UNIT; Start 10/22/16 at 11:30 Amlodipine Besylate (Norvasc) 10 mg DAILY NGT Last administered on 10/23/16 08 :04; Admin Dose 10 MG; Start 10/22/16 at 11:30 Clonidine (Catapres) 0.1 mg Q4H PRN PO ELEVATED SYSTOLIC BP Last administered on 10/26/16 21:13; Admin Dose 0.1 MG; Start 10/22/16 at 11:30 Acetaminophen (Tylenol Tab) 650 mg Q6H PRN PO PAIN AND OR ELEVATED TEMP; Start 10/22/16 at 11:30 Acetaminophen/ Hydrocodone Bitart ([place] (5/325)) 1 tab Q6H PRN PO PAIN LEVEL 6 -10; Start 10/22/16 at 11:30 Docusate Sodium (Colace) 100 mg BID PO Last administered on 10/26/16 21:09; Admin Dose 100 MG; Start 10/22/16 at 11:30 Ondansetron HCl (Zofran Tab) 4 mg Q6H PRN PO NAUSEA AND/OR VOMITING; Start at 11:30 Atorvastatin Calcium 10 mg 10 mg HS PO Last administered on 10/26/16 21:09; Admin Dose 10 MG; Start 10/22/16 at 21:00 Vancomycin HCl (Vancocin) 250 ml @ 125 mls/hr Q96H IVPB Last administered on 20:42; Admin Dose 125 MLS/HR; Start 10/24/16 at 20:00 Levofloxacin (Levaquin) 750 mg Q48H GTB Last administered on 10/26/16 17:35; Admin Dose 750 MG; Start 10/24/16 at 18:30 Hydralazine HCl (Apresoline) 10 mg Q6 PRN IV SBP>170; Start 10/24/16 at 18:30 GRETA HENRY NP Oct 27, 2016 14:28
[2016-10-27] MEDS ORDERED: LIDOCAINE 1% (STERILE-PAK) 30 ML INJ ONE (15:35)
[2016-10-27] MEDS ORDERED: GELATIN SIZE 100 SPONGE ONE ×2 (15:35→18:43)
[2016-10-27] MEDS ORDERED: THROMBIN 5000 UNIT VIAL ONE (15:36)
[2016-10-27] MEDS ORDERED: HEPARIN 1000 UNITS/ML 10 ML INJ ONE ×2 (15:36→17:53)
[2016-10-27] MEDS ORDERED: PROPOFOL 20 ML ONE (16:07)
[2016-10-27] MEDS ORDERED: ONDANSETRON 4 MG INJ ONE (16:07)
[2016-10-27] MEDS ORDERED: MIDAZOLAM 1 MG/ML 2 ML INJ ONE (16:07)
[2016-10-27] MEDS ORDERED: ROCURONIUM 50 MG INJ ONE (16:07)
[2016-10-27] MEDS ORDERED: DEXAMETHASONE 4 MG/ML 1 ML INJ ONE (16:08)
[2016-10-27] MEDS ORDERED: ROPIVACAINE 0.5 % 30 ML VIAL ONE (16:08)
[2016-10-27] MEDS ORDERED: hydrALAzine 20 MG INJ ONE (16:48)
[2016-10-27] MEDS ORDERED: EPHEDrine SULFATE 50 MG/5 ML SYG IV PRN (19:00)
[2016-10-27] MEDS ORDERED: morphine (1 MG/ML) 10ML SYRINGE IV PRN ×3 (19:00→19:30)
[2016-10-27] MEDS ORDERED: DIPHENHYDRAMINE 50 MG INJ IV PRN (19:00)
[2016-10-27] MEDS ORDERED: MEPERIDINE 25 MG INJ IV PRN (19:00)
[2016-10-27] MEDS ORDERED: hydrALAzine 20 MG INJ IV PRN (19:00)
[2016-10-27] MEDS ORDERED: MIDAZOLAM 1 MG/ML 2 ML INJ IV PRN (19:00)
[2016-10-27] MEDS ORDERED: ONDANSETRON 4 MG INJ IV PRN (19:30)
[2016-10-27] MEDS: ATORVASTATIN 10 MG TAB PO SCH (20:57)
[2016-10-28] MEDS: ACCUCHECK XX SCH (02:00)
[2016-10-28 06:00] LABS: BASOPHILS % 0.1 % (0.0-2.0); EOSINOPHILS % 0.1 % (0.0-7.0); HEMATOCRIT 31.6 % (42.0-52.0); LYMPHOCYTES # 0.6 10^3/ul (0.8-2.9); LYMPHOCYTES % 7.3 % (15.0-51.0); MEAN CORPUSCULAR HGB CONC 34.8 g/dl (32.0-37.0); MEAN PLATELET VOLUME 7.8 fl (7.4-10.4); MONOCYTE # 0.5 10^3/ul (0.3-0.9); MONOCYTES % 6.3 % (0.0-11.0); NEUTROPHIL # 7.1 10^3/ul (1.6-7.5); NEUTROPHILS % 86.2 % (39.0-77.0); PLATELET COUNT 217 10^3/UL (140-440); RED BLOOD COUNT 3.44 10^6/ul (4.70-6.10); RED CELL DISTRIBUTION WIDTH 14.6 % (11.5-14.5); UNCORRECTED WBC 8.3 10^3/ul (4.8-10.8); WHITE BLOOD COUNT 8.3 10^3/ul (4.8-10.8)
[2016-10-28 06:05] LABS: POTASSIUM 5.6 mmol/L (3.5-5.1)
[2016-10-28 06:08] LABS: CREATININE 7.29 mg/dl (0.61-1.24)
[2016-10-28 06:41] LABS: CONDITION 1; LH ANALYZER COMMENTS 1
[2016-10-28 07:52] VITALS: BP 128/66; RESP 18
[2016-10-28] MEDS: INSULIN ASPART [NOVOLOG] 3 ML PEN SC SCH (08:02)
[2016-10-28] MEDS: DOCUSATE SODIUM 100 MG CAP PO SCH (08:23)
[2016-10-28] MEDS: HEPARIN 5,000 UNIT/0.5 ML SYG SC SCH (08:25)
[2016-10-28] MEDS: AMLODIPINE 10 MG TAB NGT SCH (09:00)
--- NOTE | 2016-10-28 09:48 | CONS ---
Date/Time of Note Date/Time of Note DATE: 10/28/16 TIME: 09:47 Assessment/Plan Assessment/Plan Additional Assessment/Plan 1. Left upper extremity AV Graft site cellulitis. 2. LUE AVG clotted 2. Acute hyperkalemia now resolved with HD today 3. End-stage renal disease on hemodialysis Monday, Monday, Monday. 4. Anemia of chronic renal disease. 5. History of hypertension. 6. History of hyperlipidemia. 7. History of diabetes mellitus. Plan: on IV abx for possible infected AVG s/p AVG thrombectomy, has right groin HD catheter pt regular schedule for HD is MWF pt wants to sign out AMA- will set up home health on discharge Consultation Date/Type/Reason Admit Date/Time Oct 22, 2016 at 07:43 Type of Consultation: NEPHROLOGY Referring Provider: DICKSON IVY MD 24 HR Interval Summary Free Text/Dictation pt has AVG thrombectomy and Replacement of HD cathere, K 5.6 today, Bp stable Exam/Review of Systems Vital Signs Vitals Vital Signs Date Time Temp Pulse Resp B/P Pulse Ox O2 Delivery O2 Flow Rate FiO2 10/28/16 07:52 97.9 64 18 128/66 99 10/27/16 20:45 Room Air Intake and Output 10/27/16 10/27/16 10/28/16 14:59 22:59 06:59 Intake Total 250 ml 400 ml 240 ml Output Total 80 ml 450 ml Balance 250 ml 320 ml -210 ml Results Result Diagram: 10/28/16 0516 10/28/16 0516 Results 24 hrs Laboratory Tests Test 10/27/16 12:02 10/27/16 19:45 10/27/16 20:48 10/28/16 02:48 Bedside Glucose 108 159 203 335 H Test 10/28/16 05:16 10/28/16 08:01 Anion Gap 22 H Basophils # 0.0 Basophils % 0.1 Blood Morphology Comment Blood Urea Nitrogen 52 H Calcium Level 8.0 L Carbon Dioxide Level 26 Chloride Level 94 L Creatinine 7.29 #H Eosinophils # 0.0 Eosinophils % 0.1 Glucose Level 219 Hematocrit 31.6 L Hemoglobin 11.0 L Lymphocytes # 0.6 L Lymphocytes % 7.3 L Mean Corpuscular Hemoglobin 32.0 Mean Corpuscular Hemoglobin Concent 34.8 Mean Corpuscular Volume 92.0 Mean Platelet Volume 7.8 Monocytes # 0.5 Monocytes % 6.3 Neutrophils # 7.1 Neutrophils % 86.2 H Nucleated Red Blood Cells # 0.0 Nucleated Red Blood Cells % 0.0 Platelet Count 217 Potassium Level 5.6 H Red Blood Count 3.44 L Red Cell Distribution Width 14.6 H Sodium Level 136 White Blood Count 8.3 Bedside Glucose 138 Medications Medications Current Medications Diagnostic Test (Pha) (Accucheck) 1 ea 02 XX Last administered on 10/26/16 02: 01; Admin Dose 1 EA; Start 10/23/16 at 02:00 Miscellaneous Information 1 ea NOTE XX ; Start 10/22/16 at 11:30 Glucose (Glutose) 15 gm Q15M PRN PO DECREASED GLUCOSE; Start 10/22/16 at 11:30 Glucose (Glutose) 22.5 gm Q15M PRN PO DECREASED GLUCOSE; Start 10/22/16 at 11: 30 Dextrose (D50w Syringe) 25 ml Q15M PRN IV DECREASED GLUCOSE; Start 10/22/16 at 11:30 Dextrose (D50w Syringe) 50 ml Q15M PRN IV DECREASED GLUCOSE; Start 10/22/16 at 11:30 Glucagon (Glucagen) 1 mg Q15M PRN IM DECREASED GLUCOSE; Start 10/22/16 at 11:30 Glucose (Glutose) 15 gm Q15M PRN BUCCAL DECREASED GLUCOSE; Start 10/22/16 at 11 :30 Heparin Sodium (Porcine) (Heparin (5000 Units/0.5 ml)) 5,000 unit BID SC Last administered on 10/28/16 08:25; Admin Dose 5,000 UNIT; Start 10/22/16 at 11:30 Amlodipine Besylate (Norvasc) 10 mg DAILY NGT Last administered on 10/23/16 08 :04; Admin Dose 10 MG; Start 10/22/16 at 11:30 Clonidine (Catapres) 0.1 mg Q4H PRN PO ELEVATED SYSTOLIC BP Last administered on 10/26/16 21:13; Admin Dose 0.1 MG; Start 10/22/16 at 11:30 Acetaminophen (Tylenol Tab) 650 mg Q6H PRN PO PAIN AND OR ELEVATED TEMP; Start 10/22/16 at 11:30 Acetaminophen/ Hydrocodone Bitart ([place] (5/325)) 1 tab Q6H PRN PO PAIN LEVEL 6 -10 Last administered on 10/28/16 00:08; Admin Dose 1 TAB; Start 10/22/16 at 11: 30 Docusate Sodium (Colace) 100 mg BID PO Last administered on 10/28/16 08:23; Admin Dose 100 MG; Start 10/22/16 at 11:30 Ondansetron HCl (Zofran Tab) 4 mg Q6H PRN PO NAUSEA AND/OR VOMITING; Start at 11:30 Atorvastatin Calcium 10 mg 10 mg HS PO Last administered on 10/26/16 21:09; Admin Dose 10 MG; Start 10/22/16 at 21:00 Vancomycin HCl (Vancocin) 250 ml @ 125 mls/hr Q96H IVPB Last administered on 14:00; Start 10/24/16 at 20:00 Levofloxacin (Levaquin) 750 mg Q48H GTB Last administered on 10/26/16 17:35; Admin Dose 750 MG; Start 10/24/16 at 18:30 Hydralazine HCl (Apresoline) 10 mg Q6 PRN IV SBP>170; Start 10/24/16 at 18:30 YA HAZEL MD Oct 28, 2016 09:48
--- NOTE | 2016-10-28 09:59 | PDOCDIS ---
Discharge Instructions CONDITION Patient Condition: Good HOME CARE INSTRUCTIONS: Special Diet: RENAL DIET ACTIVITY: Activity Restrictions: Slowly Increase Activity FOLLOW UP/APPOINTMENTS Appointments follow up with Dr.Sammy dunlap on next monday- Follow up with HD unti for scheduled HD on Monday, monday and monday. Follow up with Dr.kalpesh Hazel in 2-3 weeks YA HAZEL MD Oct 28, 2016 09:59
[2016-10-28] MEDS ORDERED: LEVO500T10 PO (10:00)
--- NOTE | 2016-10-28 10:06 | OPR ---
DATE OF OPERATION: 10/27/2016 PREOPERATIVE DIAGNOSES: 1. End-stage renal disease. 2. Thrombosed left upper extremity AV graft. 3. Infected AV graft. POSTOPERATIVE DIAGNOSES: 1. End-stage renal disease. 2. Thrombosed left upper extremity AV graft. 3. Infected AV graft. ANESTHESIA: Local with sedation. ESTIMATED BLOOD LOSS: Minimal. COMPLICATIONS: None. HEPARIN: 5000 units intravenously. SPECIMEN: 1. Culture swab sent from the purulent upper arm site. 2. Arterial aspect of the AV graft. 3. The venous aspect of the AV graft. INDICATIONS: This is a 55-year-old gentleman who presented with end-stage renal disease and recent left upper extremity cellulitis and fluctuance over the area where his Acuseal PTFE graft was travel ing. Suspicion of possible infected graft was demonstrated. Further it was identified that the gra ft had thrombosed while in the hospital. A right groin Reese catheter was placed which also has m alfunctioned. At this point, the risk and benefits and alternatives were discussed with the patient regarding bleeding, thrombosis, embolization, myocardial infarction, , stroke, device malfunct ion, infection, nerve injury, limb loss, revision of AV graft. The patient understood and agreed to proceed with the procedure. PROCEDURE: 1. Revision of left upper extremity arteriovenous graft using an Acuseal 4/7 tapered PTFE graft. 2. Excision of infected graft. 3. Debridement of skin and subcutaneous tissue of the left upper extremity. FINDINGS: During the excision of what seemed to be the infected portion of the graft, a large amoun t of purulent pocket was identified and drained, and debridement was performed. Multiple cultures w ere sent for microbiology. DESCRIPTION OF PROCEDURE: The patient was brought into the operating room table and positioned in s upine position. Appropriate bony prominences were well padded. Bilateral upper extremities were pl aced in 80 degrees. Preoperative antibiotics were given preoperatively as well. At this point, ane sthesia went ahead and placed a left upper extremity regional block with local sedation available. A timeout was performed, and appropriate sites were marked and confirmed. The left upper extremity was then prepped and draped in usual standard sterile fashion. The right groin was also prepped and draped in the usual standard sterile fashion in order to exchange the right groin Reese catheter. DETAILS OF PROCEDURE: The central catheter was flushed with heparin to ensure function of each port . Landmarks were identified, and using the access port of the Reese catheter, a guidewire was leonardo sharron in the iliac vein. The nonfunctioning catheter was then removed. At this point, the skin and s ubcutaneous tissue was anesthetized with 1% lidocaine. At this point, using the dilator, it was leonardo sharron over the wire, and the tract was gently dilated. The wire also passed freely without any restri ctions. At this point, the new catheter was fed over the wire, ensuring the wire exited from the po rt before advancing the catheter. The catheter was then inserted to desired depth and the wire was removed. Each port was aspirated to ensure adequate blood flow and then flushed with heparinized sa line solution. The catheter was secured in place with a 3-0 nylon suture, and a sterile dressing wa s applied. The patient tolerated this aspect of the procedure, and our attention was then turned to the left upper extremity. At this point, a longitudinal incision was made over the previous incision of the medial aspect of t he upper arm. We went ahead and dissected through the skin and subcutaneous tissue and exposed the arterial aspect of the AV graft. This was all well incorporated, and a 2 cm segment was dissected f ree. At this point, this aspect of the graft has already been thrombosed, and we went ahead and lig ated the distal aspect of the graft which was leading to where the infected area was. Once this was established, our attention was then turned to the upper aspect of the upper arm and anterolateral p ortion. We went ahead and made a 3 cm incision there and identified the venous portion of the AV gr aft. At this point, the graft was also well incorporated with no suggestion of any infection. We t hen again went ahead and ligated this portion of the graft that was continuous with where the infect ed portion had been identified. At this point, using a Domi tunneler, we went ahead and placed a new 4/7 Acuseal PTFE graft that tunneled in a clean aspect of the upper arm. At this point, the gr aft was irrigated with heparinized saline solution. Using a 5-0 Prolene suture, the arterial aspect of the AV graft was anastomosed. Prior to completion of the anastomosis, we went ahead and perform ed a thrombectomy of the arterial aspect of the AV graft using 4-Iranian Harley. Once this was perf ormed, adequate inflow was identified with good pulsatile pressure. The patient had been given 5000 units of heparin intravenously, and a clamp was placed proximal to the anastomosis. Anastomosis wa s then completed, and the graft was again irrigated with heparinized saline solution as to identify the tract of the AV graft without any kinks or twists. At this point, we went ahead and performed o ur next anastomosis in the distal aspect of the AV graft in the upper portion of the arm. We went a head and used a 5-0 Prolene suture in a running fashion, and prior to the anastomosis, we went ahead and performed a thrombectomy using a 7-Iranian Harley of the venous portion of the AV graft. Once this was performed, a large amount of thrombus was evacuated and good blood return was identified. At this point, the clamp was placed, and the remaining of the anastomosis was completed. Prior to c ompletion, forward bleeding and back bleeding was performed, and the graft was irrigated with hepari nized saline solution. The anastomosis was completed, and we first removed the venous portion clamp in order to ensure that there is enough back bleeding into the graft, and then we went ahead and re moved the arterial portion. At this point, there was adequate flow through the newly placed AV bernarda t. This was confirmed with Doppler signal. Once this was completed using a 3-0 Vicryl, all the sut ures sites were closed. Skin kimmy were applied. Sterile dressings were applied. At this point, our attention was turned to the infected portion of the AV graft. A 1.5 cm incision was made on the fluctuant portion of the skin overlying the previous AV graft. Once this was perfor med, dissection was conducted through the subcutaneous tissue, and the pocket of purulent drainage w as identified. A culture swab was then sent, and a large amount of pus was removed. The wound was irrigated with antibiotic solution. At this point, the AV graft that was in that area was identifie d to be infected and was removed from his distal and proximal portions which were incorporated withi n the upper arm. Once it was removed, we went ahead and sent a sample for microbiology from the art erial and venous aspects of the graft. At this point, we went ahead and packed the wound with iodof orm 0.25 inch dressing. Gauze and paper tape was applied. The patient tolerated the procedure well . All instruments, sponges, needles, and catheters were correct x2. The patient tolerated this pro cedure well and was taken to the postanesthesia care unit in stable condition. Dictated By: MATTHEW SALGUERO/GILBERTO Conf#: [id number] DID#: [id number]
--- NOTE | 2016-10-31 06:28 | DS ---
DATE OF ADMISSION: 10/22/2016 DATE OF DISCHARGE: 10/28/2016 FINAL DIAGNOSES: 1. Cellulitis at the site of arteriovenous graft and possible graft infection. 2. Thrombosed left upper extremity arteriovenous graft, status post revision of the left upper extr emity arteriovenous graft, excision of the infected graft, and debridement of skin and subcutaneous tissue to the left upper extremity. 3. End-stage renal disease, hemodialysis dependent. 4. Anemia of chronic disease. 5. History of hypertension. 6. History of hyperlipidemia. 7. History of diabetes mellitus with hemoglobin A1c being 7.6. 8. Status post right femoral hemodialysis catheter placement. BRIEF HISTORY: The patient is a 55-year-old male with history of hypertension, diabetes, acute end- stage renal disease, on hemodialysis Monday, Monday, Monday. The patient was followed by Dr. Rekha yoon and was noted to have left upper extremity AV fistula site cellulitis. The patient was sent to the hospital for IV antibiotics. The patient was complaining of pain, swelling, and erythema at the arteriovenous fistula site. The patient was admitted for further exploration and management. HOSPITAL COURSE: The patient underwent a CT of the left upper extremity. The patient was noted, pe r CTA, to have thrombosed brachial dialysis graft in the left upper arm. The patient was evaluated by Dr. Peguero in infectious disease consultation. The patient was started on vancomycin and Levaqui n. The patient underwent a right femoral hemodialysis catheter placement, and the patient underwent hemodialysis. The patient also underwent revision of the left upper extremity intravenous graft an d excision of infected graft and debridement of the skin and subcutaneous tissue in the left upper e xtremity by Dr. Ortiz on October 28. The patient was scheduled to undergo hemodialysis throug h the arteriovenous graft; however, the patient was eager to go home and the patient was discharged home by Dr. Mejía and Dr. Mejía was given discharge instructions and prescription for Levaquin 500 m g p.o. daily for 10 days. The patient is also to continue on his home blood pressure, cholesterol, and diabetes medication. The patient is instructed to follow [facility] on Monday. Plan of care established for this patient. Plan of care was discussed with Dr. Ivy. Dictated By: KADEEM LEIGH FOOD SERVICE SUPERVISOR for DICKSON IVY MD SR/NTS Conf#: [id number] [facility]#: [id number]
== END 2016-10-28 11:55 | disposition home or self-care (01) | DRG 252 ==
LOC: MS2 07:43
PROVIDERS: ADMIT Internal Medicine Nephrology; ATTEND Internal Medicine
PROC: 5A1D60Z (ICD-10-PCS; 2016-10-22)
PROC: 06HM33Z Insertion of Infusion Device into Right Femoral Vein, Percutaneous Approach (ICD-10-PCS; 2016-10-25)
PROC: 3C1ZX8Z Irrigation of Indwelling Device using Irrigating Substance, External Approach (ICD-10-PCS; 2016-10-27)
PROC: 3E053PZ Introduction of Platelet Inhibitor into Peripheral Artery, Percutaneous Approach (ICD-10-PCS; 2016-10-27)
PROC: 03WY0JZ Revision of Synthetic Substitute in Upper Artery, Open Approach (ICD-10-PCS; principal; 2016-10-27 16:00)
DX: T82.7XXA Infection and inflammatory reaction due to other cardiac and vascular devices, implants and grafts, initial encounter (principal); N18.6 End stage renal disease; I12.0 Hypertensive chronic kidney disease with stage 5 chronic kidney disease or end stage renal disease; L03.114 Cellulitis of left upper limb; E11.9 Type 2 diabetes mellitus without complications; Z99.2 Dependence on renal dialysis; E87.5 Hyperkalemia; D63.1 Anemia in chronic kidney disease; E78.5 Hyperlipidemia, unspecified; T82.868A Thrombosis due to vascular prosthetic devices, implants and grafts, initial encounter
CPT/HCPCS: 73206; 80048; 80061; 80202; 82962; 83036; 85025; 85610; 85730; 87040; 87070; 87081; 88300; 88304; 90935; 93931; 93971; C1768; J0360; J1100; J1644; J1815; J2250; J2270; J2405; J2795; J2997; J3010; J3370; Q9967

== ENCOUNTER 2016-11-14 13:08 | Inpatient (IN) | payer MEDICARE, OTHER ==
[~2016-11-14] VITALS: Ht 170.2 cm; Wt 85.4 kg
[~2016-11-14 13:08] MED LIST changes: +LEVO500T10 PO
--- NOTE | 2016-11-14 16:11 | CONS ---
DATE OF ADMISSION: 11/14/2016 DATE OF CONSULTATION: 11/14/2016 VASCULAR SURGERY CONSULTATION Dear Doctors: Mr. Stern is a 55-year-old female known to our vascular surgery service with past me dical history of end-stage renal disease who had underwent bilateral upper extremity AV fistula crea tions at outside hospital. The patient had presented to us with a right upper extremity AV fistula that was malfunctioning and had it revised bypass and has had no issues since. Patient currently re ceives her dialysis on Monday, Monday, Monday schedule and has been doing fine and has been under our vascular surveillance for her fistula. She now presents with left upper extremity pain, discom fort and swelling. Patient reports that this started about a couple days ago in which it had become intolerable and therefore [facility]. It seems the patient has had a history of an AV graft that was created by other vascular surgeon at outside hospital and it is not clear as to what type of graft that may have used. At the moment, the patient denies shortness of breath. She does have chills and fever. Denies naus ea, vomiting. Denies left upper extremity claudication or rest pain-like symptoms. Patient also de nies right upper extremity claudication rest pain-like symptoms. Patient denies lower extremity cla udication or rest pain-like symptoms. REVIEW OF SYSTEMS: A 12-point review performed and negative except what is mentioned in the HPI. PAST MEDICAL HISTORY: Entails hypertension, diabetes, end-stage renal disease, anemia of chronic di sease, diabetic nephropathy, diabetic retinopathy, diabetic neuropathy. PAST SURGICAL HISTORY: Multiple upper extremity AV fistula creations and AV graft, multiple chest w all catheters and previous thrombectomies of a left upper extremity arteriovenous graft. ALLERGIES: 1. CORTISONE. 2. HYDROCODONE. SOCIAL HISTORY: Denies tobacco, alcohol or illicit drug use. FAMILY HISTORY: Positive for coronary artery disease and diabetes. PHYSICAL EXAMINATION: GENERAL: Alert and oriented x3, no apparent distress. HEENT: Normocephalic, atraumatic. Mucosa moist. NECK: Supple, no carotid bruit. PULMONARY: Clear to auscultation bilaterally. No crackles. CARDIOVASCULAR: S1, S2 present. No murmurs. ABDOMEN: Soft, nontender, nondistended. Bowel sounds positive. EXTREMITIES: Right upper extremity: Palpable brachial pulse. Motor, sensory intact. Capillary refill 2 to 3 se conds. Fistula with bruit and thrill present, surgical scar well healed. Left upper extremity: Palpable brachial pulse. Motor, sensory intact. Cap refill 2 to 3 seconds, edema of the forearm 1+. There is tenderness along the track of what seems to be a brachial axillar y tunneling and present with edema, erythema and tenderness. ASSESSMENT AND PLAN: 1. End-stage renal disease: It seems that the patient's left upper extremity previous AV graft cre ation may have been infected. As the patient is very tender in that area and presented with fever a nd chills and elevated white blood cell count. We will plan to obtain a CT angiography of the left upper extremity to better delineate her anatomy of the left upper extremity and evaluate the type of graft the patient may have. Further, need to evaluate whether or not may require revascularization as the graft is anastomosed to the brachial artery. 2. We will plan to obtain bilateral lower extremity vein mapping for possible conduit for revascula rization. 3. Continue with antibiotics. Recommend broad spectrum for now. 4. Discussed findings, plan and management with the patient, she understands with her son at the [facility] with a certified hand driller. Thank you for allowing us to partake in the care of your patient. Please call with any questions. Optimize vascular status (BP meds, diet, nutrition, exercise, sugar control, antiplatelets). Dictated By: MATTHEW SALGUERO/GILBERTO Conf#: [id number] DID#: [id number]
[2016-11-14 18:36] VITALS: BP 182/77; RESP 18
[2016-11-14 19:00] VITALS: BP 147/72; RESP 19
[2016-11-14 19:49] VITALS: Ht 170.2 cm; Wt 85.4 kg
--- NOTE | 2016-11-14 20:25 | HP ---
DATE OF ADMISSION: 11/14/2016 CHIEF COMPLAINT: Malfunction of the left upper extremity arteriovenous graft. HISTORY OF PRESENT ILLNESS: The patient is a 55-year-old male with end-stage renal disease . The patient had a left upper extremity arteriovenous graft. The patient had a recent admission f or cellulitis of the arteriovenous graft and underwent revision of the left upper extremity graft an d excision of infected graft and debridement. The patient was given IV antibiotics and was discharg ed on Levaquin. The patient followed with Dr. Mejía and was getting hemodialysis 3 times per week. The patient presented to the [facility] with complaints of left upper extremity p ain and swelling and erythema. The patient had the last dialysis done on Monday. The patient denie s any nausea, vomiting. Denies any fever, chills. The patient will be admitted for evaluation and management. PAST MEDICAL HISTORY: Positive for hypertension, diabetes, end-stage renal disease, anemia of chron ic disease, diabetic neuropathy, diabetic retinopathy, and diabetic neuropathy. PAST SURGICAL HISTORY: Status post left upper extremity AV graft, status post previous thrombectomi es of the left upper extremity arteriovenous graft. FAMILY HISTORY: Positive for coronary artery disease and diabetes. SOCIAL HISTORY: The patient lives at home. The patient denies any tobacco, alcohol, or illicit nhan g use. ALLERGIES: NO KNOWN ALLERGIES. MEDICATIONS ON ADMISSION: The patient does not remember what medication he takes. He states he umberto es a medication for blood pressure and cholesterol. REVIEW OF SYSTEMS: A 12-point review of systems is negative unless was mentioned in the HPI. PHYSICAL ASSESSMENT: GENERAL: Well-developed, well-nourished gentleman currently is awake, alert. VITAL SIGNS: Temperature is 97.8, pulse is 62, blood pressure 182/77, respiratory rate 18, oxygen s aturation is 100% on room air. HEENT: Head is atraumatic, normocephalic. PERRLA. NECK: Supple. No mass or thyromegaly. CHEST: Sounds clear bilaterally. CARDIOVASCULAR: Normal S1, S2. No murmurs, gallops, clicks, rubs present. ABDOMEN: Round, soft, nondistended, nontender. Bowel sounds present. No guarding, no rebound tend erness. EXTREMITIES: The patient's left upper extremity arteriovenous fistula with some induration and eryt basilio around the site and tenderness. Lower extremities: There is no edema, clubbing, cyanosis. Pu lses equal bilaterally 2+. ASSESSMENT AND PLAN: 1. Possible infection of arteriovenous graft. I will start patient on broad-spectrum antibiotics. Dr. Peguero will be followed patient in infectious disease consultation. 2. End-stage renal disease. Will continue hemodialysis. The patient needs a temporary hemodialysi s catheter. Dr. Mejía will be following the patient in nephrology consultation. 3. Hypertension. We will continue patient on Norvasc and Catapres. Hydralazine p.r.n. for systoli c blood pressure above 170. 4. Hyperlipidemia. Continue Lipitor. 5. Diabetes mellitus type 2 with hemoglobin A1c 7.6. Continue metformin and NovoLog per mild algor ithm sliding scale. 6. Anemia of chronic disease. Continue to monitor hemoglobin and hematocrit. We will obtain CBC a nd CMP. 7. Continue heparin for deep venous thrombosis prophylaxis and Pepcid for peptic ulcer disease prop hylaxis. Further recommendations based on clinical course. Plan of care discussed with Dr. Hilda bearden Dictated By: KADEEM LEIGH FARM APPRAISER for DICKSON IVY MD SR/NTS Conf#: [id number] DID#: [id number]
[2016-11-14] MEDS ORDERED: VANCOMYCIN IV PER PHARMACY XX SCH (20:30)
[2016-11-14] MEDS ORDERED: ONDANSETRON 4 MG INJ IV PRN ×2 (20:30)
[2016-11-14] MEDS ORDERED: GLUCOSE GEL 15 GRAM TUBE PO PRN ×2 (20:30)
[2016-11-14] MEDS ORDERED: ACETAMINOPHEN 325 MG TAB PO PRN ×2 (20:30)
[2016-11-14] MEDS ORDERED: GLUCOSE GEL 15 GRAM TUBE BUCCAL PRN (20:30)
[2016-11-14] MEDS ORDERED: GLUCAGON 1 MG INJ IM PRN (20:30)
[2016-11-14] MEDS ORDERED: morphine 2 MG INJ IV PRN ×2 (20:30)
[2016-11-14] MEDS ORDERED: DEXTROSE 50% 50 ML SYRINGE IV PRN ×2 (20:30)
[2016-11-14] MEDS ORDERED: DOCUSATE SODIUM 100 MG CAP PO PRN (20:30)
[2016-11-14] MEDS ORDERED: NACL 0.9% 3 ML SYG IV SCH (20:30)
[2016-11-14] MEDS ORDERED: hydrALAzine 20 MG INJ IV PRN (20:30)
[2016-11-14] MEDS: INSULIN ASPART [NOVOLOG] 3 ML PEN SC SCH (20:33)
[2016-11-14] MEDS: ATORVASTATIN 20 MG TAB PO SCH (20:37)
[2016-11-14] MEDS: AMLODIPINE 10 MG TAB PO SCH (20:38)
[2016-11-14] MEDS ORDERED: FAMOTIDINE 20 MG TAB PO SCH (21:00)
[2016-11-14] MEDS: HEPARIN 5,000 UNIT/0.5 ML SYG SC SCH (21:59)
[2016-11-14] MEDS ORDERED: VANCOMYCIN 1.75 GM in NS 500 ML IVPB SCH (22:00)
[2016-11-14] MEDS: DEXTROSE 5%-0.45% NACL 1,000 ML IV SCH (23:54)
[2016-11-15] VITALS (16 sets, daily range): BP systolic 111–171; BP diastolic 50–74; PULSE 56–60; RESP 13–18
[2016-11-15] MEDS: ACCUCHECK XX SCH (02:00)
[2016-11-15] MEDS: DEXTROSE 5%-0.45% NACL 1,000 ML IV SCH (02:18)
[2016-11-15 03:52] LABS: BASOPHILS % 0.5 % (0.0-2.0); EOSINOPHILS # 0.2 10^3/ul (0.0-0.5); EOSINOPHILS % 4.2 % (0.0-7.0); HEMATOCRIT 28.3 % (42.0-52.0); HEMOGLOBIN 9.7 g/dl (14.0-18.0); LYMPHOCYTES # 0.7 10^3/ul (0.8-2.9); LYMPHOCYTES % 15.7 % (15.0-51.0); MEAN CORPUSCULAR HEMOGLOBIN 32.1 pg (29.0-33.0); MEAN CORPUSCULAR HGB CONC 34.4 g/dl (32.0-37.0); MEAN CORPUSCULAR VOLUME 93.4 fl (82.0-101.0); MEAN PLATELET VOLUME 7.5 fl (7.4-10.4); MONOCYTE # 0.4 10^3/ul (0.3-0.9); MONOCYTES % 8.8 % (0.0-11.0); NEUTROPHIL # 3.3 10^3/ul (1.6-7.5); NEUTROPHILS % 70.8 % (39.0-77.0); PLATELET COUNT 194 10^3/UL (140-440); RED BLOOD COUNT 3.03 10^6/ul (4.70-6.10); UNCORRECTED WBC 4.7 10^3/ul (4.8-10.8); WHITE BLOOD COUNT 4.7 10^3/ul (4.8-10.8)
[2016-11-15 03:55] LABS: CONDITION 1; LH ANALYZER COMMENTS 1
[2016-11-15 04:03] LABS: ALBUMIN 3.3 g/dl (3.3-4.9)
[2016-11-15 04:04] LABS: INR 1.11; PARTIAL THROMBOPLASTIN TIME 29.4 Sec (25.0-35.0); POTASSIUM 4.9 mmol/L (3.5-5.1); PROTIME 14.3 Sec (12.2-14.2); PT RATIO 1.1
[2016-11-15 04:06] LABS: ALBUMIN/GLOBULIN RATIO 1.03; BILIRUBIN,INDIRECT 0.1 mg/dl (0-1.1); BILIRUBIN,TOTAL 0.1 mg/dl (0.2-1.3); CREATININE 7.7 mg/dl (0.61-1.24); TOTAL PROTEIN 6.5 g/dl (6.1-8.1)
[2016-11-15 04:07] LABS: CALCIUM 7.3 mg/dl (8.4-10.2)
[2016-11-15] MEDS: HEPARIN 5,000 UNIT/0.5 ML SYG SC SCH ×3 (05:52→22:00)
--- NOTE | 2016-11-15 07:21 | CONS ---
DATE OF ADMISSION: 11/14/2016 DATE OF CONSULTATION: 11/14/2016 REFERRING PHYSICIAN: Abad Alatorre MD TYPE OF CONSULTATION: Nephrology. REASON FOR CONSULTATION: Maintenance hemodialysis in chronic dialysis patient who presented with in fected left arm dialysis AV shunt. HISTORY OF PRESENT ILLNESS: This is a 55-year-old male who has a past medical history of hypertensi on; diabetes mellitus; left upper extremity AV fistula creation at outside hospital; end-stage renal disease on hemodialysis Monday, Monday, Monday. The patient was admitted by Vascular Surgery, Mariama Ortiz, because of the possible concern about infected AV fistula. The patient was rece ntly admitted in the month of early 10/2016 for infected left upper extremity AV fistula site associ ated with cellulitis. He was treated with IV antibiotics and was discharged home with prescriptions of the p.o. antibiotics. This time, he was followed up by Dr. John Ortiz and noted to have in fected AV fistula. The patient gets admitted to the med/surg floor by Dr. Alatorre, and Renal has b estellen consulted for maintenance hemodialysis in a chronic hemodialysis patient. REVIEW OF SYSTEMS: Positive for left upper extremity AV fistula site cellulitis, pain. Other 12-po int review of systems has been obtained and is negative except what is mentioned in the history of p resent illness. PAST MEDICAL HISTORY: Hypertension, diabetes mellitus, end-stage renal disease on hemodialysis, ane ioana of chronic disease, diabetic nephropathy, diabetic retinopathy, diabetic neuropathy. PAST SURGICAL HISTORY: Multiple upper extremity AV fistula creations and AV graft, multiple chest w all catheters and previous thrombectomies of the left upper extremity AV graft. ALLERGIES: 1. CORTISONE. 2. HYDROCODONE. SOCIAL HISTORY: Denies any smoking, alcohol, recreational drug use. FAMILY HISTORY: Positive for coronary artery disease and diabetes. PHYSICAL EXAMINATION: VITAL SIGNS: Temperature 98.7, heart rate 66, respirations 19, blood pressure 147/72, saturation 10 0% on room air. GENERAL: Awake, alert. Moderate distress due to the pain. HEENT: Normal. Oropharynx clear. NECK: Supple. No JVD, no lymphadenopathy. LUNGS: Clear to auscultation. No crackles, no wheezes. HEART: S1, S2 with regular rhythm. No murmur. ABDOMEN: Soft, nontender, nondistended. Bowel sounds are positive. EXTREMITIES: Right upper extremity fistula with bruit ____. His present surgical scar is well heal ed. ASSESSMENT AND PLAN: 1. End-stage renal disease on hemodialysis Monday, Monday, Monday. 2. Left upper extremity arteriovenous fistula graft creations, site infections, concerned about ___ _ infection getting worse. 3. Hypertension. 4. Diabetes mellitus. 5. History of recent admission for left upper extremity arteriovenous fistula site cellulitis, has been treated with intravenous antibiotics. PLAN: Thank you, Dr. Alatorre, for this consultation. 1. Continue the current IV antibiotics. Dr. John Ortiz, Vascular Surgery, has been planning t o get the CT angiogram ____ of the left upper extremity. 2. I will arrange the patient's hemodialysis to be done tomorrow. He is currently seen in the med/ surg floor, and he will be followed up along with the primary care service, Dr. Alatorre. IV antibi otics, vancomycin as per pharmacy protocol. 3. Possible plan for removal of arteriovenous graft, so patient will likely need a Perm-A-Cath for long-term dialysis access until the new AV fistula creation. He is currently seen in the med/surg f arvin, and he will be followed up along with the primary care service, Dr. Alatorre, and Vascular Nathan argelia, Dr. John Ortiz. Dictated By: YA HAZEL MD, KP/GILBERTO Conf#: [id number] DID#: [id number]
[2016-11-15] MEDS: metFORMIN 500 MG TAB NGT SCH ×2 (08:05→17:42)
[2016-11-15] MEDS: INSULIN ASPART [NOVOLOG] 3 ML PEN SC SCH ×4 (08:15→20:51)
[2016-11-15] MEDS: AMLODIPINE 10 MG TAB PO SCH (09:25)
[2016-11-15] MEDS: FAMOTIDINE 20 MG TAB PO SCH (09:26)
--- NOTE | 2016-11-15 10:30 | CONS ---
Date/Time of Note Date/Time of Note DATE: 11/15/16 TIME: 10:29 Assessment/Plan Assessment/Plan Additional Assessment/Plan ASSESSMENT AND PLAN: 1. End-stage renal disease on hemodialysis Monday, Monday, Monday. 2. Left upper extremity arteriovenous fistula graft creations, site infections , concerned about ____ infection getting worse. 3. Hypertension. 4. Diabetes mellitus. 5. History of recent admission for left upper extremity arteriovenous fistula site cellulitis, has been treated with intravenous antibiotics. PLAN: blood cx x 2 today plan for LUE AVF excision plan fo rHD today after juanito will need ID consult will follow up Consultation Date/Type/Reason Admit Date/Time Nov 14, 2016 at 18:30 Initial Consult Date Type of Consultation: NEPHROLOGY Reason for Consultation ESRD on HD, Infected LUE AVG Referring Provider: DICKSON IVY MD 24 HR Interval Summary Free Text/Dictation plan for excision of LUE AVG Exam/Review of Systems Vital Signs Vitals Vital Signs Date Time Temp Pulse Resp B/P Pulse Ox O2 Delivery O2 Flow Rate FiO2 11/15/16 08:08 98.3 63 16 132/62 97 Intake and Output 11/14/16 11/14/16 11/15/16 15:00 23:00 07:00 Intake Total 620 ml Balance 620 ml Exam GENERAL: Awake, alert. Moderate distress due to the pain. HEENT: Normal. Oropharynx clear. NECK: Supple. No JVD, no lymphadenopathy. LUNGS: Clear to auscultation. No crackles, no wheezes. HEART: S1, S2 with regular rhythm. No murmur. ABDOMEN: Soft, nontender, nondistended. Bowel sounds are positive. EXTREMITIES: LUE AVF no thrill, Results Result Diagram: 11/15/16 0341 11/15/16 0341 Results 24 hrs Laboratory Tests Test 11/14/16 20:25 11/15/16 03:41 11/15/16 07:58 Bedside Glucose 111 142 Activated Partial Thromboplast Time 29.4 Alanine Aminotransferase (ALT/SGPT) 18 Albumin 3.3 Albumin/Globulin Ratio 1.03 Alkaline Phosphatase 90 Anion Gap 18 H Aspartate Amino Transf (AST/SGOT) 23 Basophils # 0.0 Basophils % 0.5 Blood Morphology Comment Blood Urea Nitrogen 88 H Calcium Level 7.3 L Carbon Dioxide Level 21 Chloride Level 105 Creatinine 7.70 H Direct Bilirubin 0.00 Eosinophils # 0.2 Eosinophils % 4.2 Globulin 3.20 Glucose Level 151 Hematocrit 28.3 L Hemoglobin 9.7 L INR International Normalized Ratio 1.11 Indirect Bilirubin 0.1 Lymphocytes # 0.7 L Lymphocytes % 15.7 Mean Corpuscular Hemoglobin 32.1 Mean Corpuscular Hemoglobin Concent 34.4 Mean Corpuscular Volume 93.4 Mean Platelet Volume 7.5 Monocytes # 0.4 Monocytes % 8.8 Neutrophils # 3.3 Neutrophils % 70.8 Nucleated Red Blood Cells # 0.0 Nucleated Red Blood Cells % 0.0 Platelet Count 194 Potassium Level 4.9 Prothrombin Time 14.3 H Prothrombin Time Ratio 1.1 Red Blood Count 3.03 L Red Cell Distribution Width 15.0 H Sodium Level 139 Total Bilirubin 0.1 L Total Protein 6.5 White Blood Count 4.7 #L Medications Medications Current Medications Ondansetron HCl (Zofran Inj) 4 mg Q6H PRN IV NAUSEA AND/OR VOMITING; Start at 20:30 Acetaminophen (Tylenol Tab) 650 mg Q6H PRN PO PAIN LEVEL 1-3 OR FEVER; Start at 20:30 Morphine Sulfate (morphine) 2 mg Q4H PRN IV SEVERE PAIN LEVEL 7-10; Start 11/14 at 20:30 Docusate Sodium (Colace) 100 mg Q12H PRN PO CONSTIPATION; Start 11/14/16 at 20: 30 Heparin Sodium (Porcine) (Heparin (5000 Units/0.5 ml)) 5,000 unit Q8 SC ; Start 11/14/16 at 22:00 Amlodipine Besylate (Norvasc) 10 mg DAILY PO Last administered on 11/15/16 09: 25; Admin Dose 10 MG; Start 11/14/16 at 20:30 Clonidine (Catapres) 0.1 mg QID PO Last administered on 11/15/16 09:26; Admin Dose 0.1 MG; Start 11/14/16 at 21:00 Hydralazine HCl (Apresoline) 10 mg Q6 PRN IV SBP>170; Start 11/14/16 at 20:30 Diagnostic Test (Pha) (Accucheck) 1 ea 02 XX ; Start 11/15/16 at 02:00 Atorvastatin Calcium (Lipitor) 20 mg HS PO Last administered on 11/14/16 20:37 ; Admin Dose 20 MG; Start 11/14/16 at 21:00 Acetaminophen (Tylenol Tab) 650 mg Q4H PRN PO PAIN AND OR ELEVATED TEMP; Start 11/14/16 at 20:30 Miscellaneous Information 1 ea NOTE XX ; Start 11/14/16 at 20:30 Glucose (Glutose) 15 gm Q15M PRN PO DECREASED GLUCOSE; Start 11/14/16 at 20:30 Glucose (Glutose) 22.5 gm Q15M PRN PO DECREASED GLUCOSE; Start 11/14/16 at 20: 30 Dextrose (D50w Syringe) 25 ml Q15M PRN IV DECREASED GLUCOSE; Start 11/14/16 at 20:30 Dextrose (D50w Syringe) 50 ml Q15M PRN IV DECREASED GLUCOSE; Start 11/14/16 at 20:30 Glucagon (Glucagen) 1 mg Q15M PRN IM DECREASED GLUCOSE; Start 11/14/16 at 20:30 Glucose (Glutose) 15 gm Q15M PRN BUCCAL DECREASED GLUCOSE; Start 11/14/16 at 20 :30 Famotidine 20 mg 20 mg DAILY PO Last administered on 11/15/16 09:26; Admin Dose 20 MG; Start 11/15/16 at 09:00 Dextrose/Sodium Chloride (D5-1/2ns) 1,000 ml @ 40 mls/hr Q24H IV Last administered on 11/15/16 02:18; Admin Dose 40 MLS/HR; Start 11/15/16 at 00:00 Miscellaneous Information (*Rx Drug Level Order Reminder*) VANCO RANDOM LEVEL... ONCE ONCE XX ; Start 11/16/16 at 05:00; Stop 11/16/16 at 05:01 YA HAZEL MD Nov 15, 2016 10:30
--- NOTE | 2016-11-15 11:20 | RADRPT ---
PROCEDURE: XR Chest. CLINICAL INDICATION: Preoperative. TECHNIQUE: Two views. Frontal and lateral. COMPARISON: 01/29/2016. FINDINGS: Previously noted dialysis catheter has been removed. The lungs are clear. The heart size is normal. There is no pleural effusion. There is no pneumothorax. IMPRESSION: 1. Normal chest radiograph. 2. Dialysis catheter seen on 01/29/2016 has been removed. RPTAT: QQ .Dayron Joel MD, MD Date Time Electronically viewed and signed by .Dayron Joel MD, MD on 11/15/2016 11:20 .R/
--- NOTE | 2016-11-15 12:29 | RADRPT ---
PROCEDURE: Ultrasound of the soft tissues of the left upper extremity. CLINICAL INDICATION: And swelling left upper extremity. TECHNIQUE: High-resolution sonography of the left upper extremity at the site of the pain and swel ling was performed in the axial and sagittal planes. COMPARISON: None FINDINGS: There is no cystic or solid mass. The soft tissues are normal. There is a completely thrombosed di alysis graft. IMPRESSION: 1. No cystic or solid mass in the left upper extremity. 2. Completely thrombosed dialysis graft in the left upper extremity. 3. Any further management regarding the left upper extremity pain and swelling should be based on c linical grounds. RPTAT: QQ .Dayron Joel MD, MD Date Time Electronically viewed and signed by .Dayron Joel MD, on 11/15/2016 12:29 .R/
--- NOTE | 2016-11-15 14:20 | CONS ---
DATE OF ADMISSION: 11/14/2016 DATE OF CONSULTATION: 11/15/2016 INFECTIOUS DISEASE CONSULTATION REASON FOR CONSULTATION: Antibiotic management. HISTORY OF PRESENT ILLNESS: Grayson Lynch is a 55-year-old male with numerous pro blems including end-stage renal disease who has malfunctioning of his left upper extremity AV graft. The patient had a left AV graft placed on recent admission for cellulitis. He underwent revision of left upper extremity graft, excision of the infected graft, and debridement. He was given IV ant ibiotics and was discharged on Levaquin. He is followed by Dr. Aniceto Mejía, getting dialysis 3 ti mes a week. He now complains of left upper extremity pain, swelling, and erythema. His last dialys is done prior to admission on Monday, his admission was November 14, which was Monday, so it was [facility] . PAST PROBLEMS: Include: Hypertension, diabetes mellitus, end-stage renal disease, anemia of chroni c disease, diabetic retinopathy, and diabetic neuropathy. He is status post left upper extremity AV graft, status post thrombectomy of left upper extremity AV graft. On admission, his white count wa s 4.7, H and H 9.7 and 28.3, platelet count 194,000. BUN and creatinine 88 and 7.7. IMAGING: Extremity ultrasound shows no cystic or solid mass in the left upper extremity, completely thrombosed dialysis graft, any further management regarding the upper extremity pain and swelling s hould be based on clinical grounds. He had a chest x-ray done on the , a dialysis catheter has been removed. Lungs are clear. He was seen by Dr. Aniceto Mejía. Plan is for left upper extremity AV fistula excision. Plan for hemodialysis after Reese catheter. ID consultation. PAST MEDICAL HISTORY: Operations as outlined. FAMILY HISTORY: Noncontributory. SOCIAL HISTORY: Does not smoke, drink, or abuse drugs. ALLERGIES: NONE TO PENICILLIN, SULFA, OR FOODS. MEDICATIONS: Per chart review. REVIEW OF SYSTEMS: As per HPI. PHYSICAL EXAMINATION: GENERAL: The patient is a well-developed, well-nourished male who is alert, responsive, in no acute distress. He has some pain in his left upper extremity. SKIN: Without generalized rash. HEENT: Within normal limits. NECK: Supple. LYMPH NODES: None palpable. CHEST: Decreased breath sounds at the bases. HEART: Without murmur or gallop. ABDOMEN: Soft, nontender, nondistended without organosplenomegaly or masses. EXTREMITIES: Left upper extremity AV fistula without any thrills. RECTAL AND GENITAL: Deferred. NEUROLOGIC: No focal neurological abnormalities. IMPRESSION AND PLAN: The patient most likely has an infected thrombosed arteriovenous fistula. He is to have it removed by Dr. Argueta. Blood cultures have been done, vancomycin has been ordered, and we are awaiting removal of the fistula and placement of a Reese catheter. I concur with curr ent management. I will dictate my findings to Dr. Alatorre. Dictated By: VIRGIE MADISON MD, JD/GILBERTO Conf#: [id number] DID#: [id number]
[2016-11-15] MEDS ORDERED: HEPARIN 1000 UNITS/ML 10 ML INJ ONE (16:34)
[2016-11-15] MEDS ORDERED: LEVOFLOXACIN 500MG/D5W (PMX) 100 ML IVPB SCH (19:00)
--- NOTE | 2016-11-15 19:03 | PN ---
Date/Time of Note Date/Time of Note DATE: 11/15/16 TIME: 18:57 Assessment/Plan VTE Prophylaxis VTE Prophylaxis Intervention: SCD's Lines/Catheters IV [facility] quintoncath with pigtail Urinary Cath still in place: No Assessment/Plan Chief Complaint/Hosp Course ASSESSMENT AND PLAN: 1. Possible infection of arteriovenous graft. Dr. Peguero is followed patient in infectious disease consultation. Continue antibiotics per ID. 2. End-stage renal disease. Dr. Mejía is following the patient in nephrology consultation. Continue hemodialysis via right femoral Reese catheter. 3. Hypertension. Continue patient on Norvasc and Catapres. Hydralazine p.r.n. for systolic blood pressure above 170. 4. Hyperlipidemia. Continue Lipitor. 5. Diabetes mellitus type 2 with hemoglobin A1c 7.6. Continue metformin and NovoLog per mild algorithm sliding scale. 6. Anemia of chronic disease. Continue to monitor hemoglobin and hematocrit. 7. Hemodialysis access. Patient is status post right femoral catheter insertion. Plan for right upper extremities atrial venous fistula creation tomorrow by Dr. Ortiz, vascular surgery. Continue heparin for deep venous thrombosis prophylaxis and Pepcid for peptic ulcer disease prophylaxis. Further recommendations based on clinical course. Plan of care discussed with Dr. Alatorre. Problems: Subjective 24 Hr Interval Summary Free Text/Dictation Patient is undergoing hemodialysis via right femoral hemodialysis catheter, patient denies any fever nausea vomiting. Exam/Review of Systems Vital Signs Vitals Vital Signs Date Time Temp Pulse Resp B/P Pulse Ox O2 Delivery O2 Flow Rate FiO2 11/15/16 18:00 60 11/15/16 17:24 97.6 18 122/62 100 Intake and Output 11/14/16 11/14/16 11/15/16 15:00 23:00 07:00 Intake Total 620 ml Balance 620 ml Exam PHYSICAL ASSESSMENT: GENERAL: Well-developed, well-nourished gentleman currently is awake, alert. HEENT: Head is atraumatic, normocephalic. PERRLA. NECK: Supple. No mass or thyromegaly. CHEST: Sounds clear bilaterally. CARDIOVASCULAR: Normal S1, S2. No murmurs, gallops, clicks, rubs present. ABDOMEN: Round, soft, nondistended, nontender. Bowel sounds present. No guarding, no rebound tenderness. EXTREMITIES: The patient's left upper extremity arteriovenous fistula with some induration and erythema around the site and tenderness. Lower extremities : There is no edema, clubbing, cyanosis. Pulses equal bilaterally 2+. R fem HD cath Results Result Diagram: 11/15/16 0341 11/15/16 0341 Results 24 hrs Laboratory Tests Test 11/14/16 20:25 11/15/16 03:41 11/15/16 07:58 11/15/16 12:21 Bedside Glucose 111 142 127 Activated Partial Thromboplast Time 29.4 Alanine Aminotransferase (ALT/SGPT) 18 Albumin 3.3 Albumin/Globulin Ratio 1.03 Alkaline Phosphatase 90 Anion Gap 18 H Aspartate Amino Transf (AST/SGOT) 23 Basophils # 0.0 Basophils % 0.5 Blood Morphology Comment Blood Urea Nitrogen 88 H Calcium Level 7.3 L Carbon Dioxide Level 21 Chloride Level 105 Creatinine 7.70 H Direct Bilirubin 0.00 Eosinophils # 0.2 Eosinophils % 4.2 Globulin 3.20 Glucose Level 151 Hematocrit 28.3 L Hemoglobin 9.7 L INR International Normalized Ratio 1.11 Indirect Bilirubin 0.1 Lymphocytes # 0.7 L Lymphocytes % 15.7 Mean Corpuscular Hemoglobin 32.1 Mean Corpuscular Hemoglobin Concent 34.4 Mean Corpuscular Volume 93.4 Mean Platelet Volume 7.5 Monocytes # 0.4 Monocytes % 8.8 Neutrophils # 3.3 Neutrophils % 70.8 Nucleated Red Blood Cells # 0.0 Nucleated Red Blood Cells % 0.0 Platelet Count 194 Potassium Level 4.9 Prothrombin Time 14.3 H Prothrombin Time Ratio 1.1 Red Blood Count 3.03 L Red Cell Distribution Width 15.0 H Sodium Level 139 Total Bilirubin 0.1 L Total Protein 6.5 White Blood Count 4.7 #L Test 11/15/16 17:38 Bedside Glucose 234 H Medications Medications Current Medications Ondansetron HCl (Zofran Inj) 4 mg Q6H PRN IV NAUSEA AND/OR VOMITING; Start at 20:30 Acetaminophen (Tylenol Tab) 650 mg Q6H PRN PO PAIN LEVEL 1-3 OR FEVER; Start at 20:30 Morphine Sulfate (morphine) 2 mg Q4H PRN IV SEVERE PAIN LEVEL 7-10; Start 11/14 at 20:30 Docusate Sodium (Colace) 100 mg Q12H PRN PO CONSTIPATION; Start 11/14/16 at 20: 30 Heparin Sodium (Porcine) (Heparin (5000 Units/0.5 ml)) 5,000 unit Q8 SC ; Start 11/14/16 at 22:00 Amlodipine Besylate (Norvasc) 10 mg DAILY PO Last administered on 11/15/16 09: 25; Admin Dose 10 MG; Start 11/14/16 at 20:30 Clonidine (Catapres) 0.1 mg QID PO Last administered on 11/15/16 09:26; Admin Dose 0.1 MG; Start 11/14/16 at 21:00 Hydralazine HCl (Apresoline) 10 mg Q6 PRN IV SBP>170; Start 11/14/16 at 20:30 Diagnostic Test (Pha) (Accucheck) 1 ea 02 XX ; Start 11/15/16 at 02:00 Atorvastatin Calcium (Lipitor) 20 mg HS PO Last administered on 11/14/16 20:37 ; Admin Dose 20 MG; Start 11/14/16 at 21:00 Acetaminophen (Tylenol Tab) 650 mg Q4H PRN PO PAIN AND OR ELEVATED TEMP; Start 11/14/16 at 20:30 Miscellaneous Information 1 ea NOTE XX ; Start 11/14/16 at 20:30 Glucose (Glutose) 15 gm Q15M PRN PO DECREASED GLUCOSE; Start 11/14/16 at 20:30 Glucose (Glutose) 22.5 gm Q15M PRN PO DECREASED GLUCOSE; Start 11/14/16 at 20: 30 Dextrose (D50w Syringe) 25 ml Q15M PRN IV DECREASED GLUCOSE; Start 11/14/16 at 20:30 Dextrose (D50w Syringe) 50 ml Q15M PRN IV DECREASED GLUCOSE; Start 11/14/16 at 20:30 Glucagon (Glucagen) 1 mg Q15M PRN IM DECREASED GLUCOSE; Start 11/14/16 at 20:30 Glucose (Glutose) 15 gm Q15M PRN BUCCAL DECREASED GLUCOSE; Start 11/14/16 at 20 :30 Famotidine 20 mg 20 mg DAILY PO Last administered on 11/15/16 09:26; Admin Dose 20 MG; Start 11/15/16 at 09:00 Dextrose/Sodium Chloride (D5-1/2ns) 1,000 ml @ 40 mls/hr Q24H IV Last administered on 11/15/16t 02:18; Admin Dose 40 MLS/HR; Start 11/15/16 at 00:00 Miscellaneous Information (*Rx Drug Level Order Reminder*) VANCO RANDOM LEVEL... ONCE ONCE XX ; Start 11/16/16 at 05:00; Stop 11/16/16 at 05:01 KADEEM LEIGH Nov 15, 2016 19:03
[2016-11-15] MEDS: ATORVASTATIN 20 MG TAB PO SCH (20:44)
--- NOTE | 2016-11-15 23:06 | OPR ---
Date/Time of Note Date/Time of Note DATE: 11/15/16 TIME: 23:05 Operative Report Free Text/Dictation DATE OF OPERATION: SURGEON: John Hughes MD PREOPERATIVE DIAGNOSIS: ESRD POSTOPERATIVE DIAGNOSIS: same ANESTHESIA: Local BLOOD LOSS: minimal COMPLICATIONS: None. ACCESS: Right common femoral vein INDICATIONS: This is a 55 year-old male with ESRD requiring urgent dialysis. Patient and family have been informed of the alternatives, risks, and benefits. Risks including but not limited to bleeding, thrombosis, embolization, myocardial infarction, , device malfunction, infection, pneumothorax, nephrotoxicity and patient has agreed to proceed. PROCEDURE: 1. Ultrasound guided access of right common femoral vein 2. Emergent Right common femoral vein non-tunneled hemodialysis catheter placement DESCRIPTION: The patient was in supine position in his bed. Bed was placed in slight Trendelenburg position and the groin was prepped and draped with sterile technique. The central catheter was flushed with heparin to ensure function of each port. Landmarks were identified and the skin entry site was chosen using ultrasound guidance. The skin And subcutaneous tissue were anesthetized with 1% lidocaine. The vein was then located with a needle with a 10 mL syringe using ultrasound guidance. The needle was then directed towards the vein and was entered. The needle position was secured and syringe was removed. The hub was occluded to prevent venous air embolus. The guidewire was passed easily and the needle was removed while the wire was held in place. A small incision was then made at the point of the wire entry. The dilator was placed over the wire and the tract gently dilated. The catheter was fed over the wire, ensuring the wire exited from the port before advancing the catheter. The catheter was inserted to the desired depth and the wire removed. Each port was aspirated to ensure adequate blood flow and then flushed with heparinized saline solution. The catheter was secured in place with a 2-0 nylon suture and a sterile dressing was applied. The patient tolerated the procedure well and was in stable condition. All instrument, sponge and needle counts were correct 2. JOHN HUGHES MD Nov 15, 2016 23:06
[2016-11-16] VITALS (17 sets, daily range): BP systolic 82–138; BP diastolic 52–75; PULSE 55–62; RESP 14–20
[2016-11-16] MEDS: ACCUCHECK XX SCH (02:00)
[2016-11-16] MEDS: HEPARIN 5,000 UNIT/0.5 ML SYG SC SCH ×3 (06:00→21:48)
[2016-11-16 06:51] LABS: POTASSIUM 4.9 mmol/L (3.5-5.1)
[2016-11-16 06:53] LABS: CREATININE 5.52 mg/dl (0.61-1.24)
[2016-11-16 06:54] LABS: CALCIUM 8.1 mg/dl (8.4-10.2)
[2016-11-16 06:55] LABS: INR 1.07; PROTIME 13.9 Sec (12.2-14.2); PT RATIO 1.1
[2016-11-16 06:56] LABS: PARTIAL THROMBOPLASTIN TIME 28.6 Sec (25.0-35.0)
[2016-11-16 07:00] LABS: THROMBIN TIME 14.4 SEC (13.8-19.1)
--- NOTE | 2016-11-16 07:12 | HPN ---
Date/Time of Note Date/Time of Note DATE: 11/16/16 TIME: 07:12 Interval H&P Admission Note Pt. seen H&P reviewed: No system changes MATTHEW HUGHES MD Nov 16, 2016 07:12
[2016-11-16] MEDS: metFORMIN 500 MG TAB NGT SCH ×2 (08:05→18:09)
[2016-11-16 08:52] LABS: BASOPHILS % 0.7 % (0.0-2.0); EOSINOPHILS # 0.2 10^3/ul (0.0-0.5); EOSINOPHILS % 3.5 % (0.0-7.0); HEMATOCRIT 31.9 % (42.0-52.0); HEMOGLOBIN 11.1 g/dl (14.0-18.0); LYMPHOCYTES # 0.7 10^3/ul (0.8-2.9); LYMPHOCYTES % 16.8 % (15.0-51.0); MEAN CORPUSCULAR HEMOGLOBIN 32.3 pg (29.0-33.0); MEAN CORPUSCULAR HGB CONC 34.8 g/dl (32.0-37.0); MEAN CORPUSCULAR VOLUME 92.9 fl (82.0-101.0); MEAN PLATELET VOLUME 8.1 fl (7.4-10.4); MONOCYTE # 0.4 10^3/ul (0.3-0.9); MONOCYTES % 8.1 % (0.0-11.0); NEUTROPHIL # 3.1 10^3/ul (1.6-7.5); NEUTROPHILS % 70.9 % (39.0-77.0); PLATELET COUNT 242 10^3/UL (140-440); RED BLOOD COUNT 3.43 10^6/ul (4.70-6.10); RED CELL DISTRIBUTION WIDTH 14.7 % (11.5-14.5); UNCORRECTED WBC 4.4 10^3/ul (4.8-10.8); WHITE BLOOD COUNT 4.4 10^3/ul (4.8-10.8)
[2016-11-16 08:59] LABS: CONDITION 1; LH ANALYZER COMMENTS 1
[2016-11-16] MEDS: FAMOTIDINE 20 MG TAB PO SCH (09:00)
[2016-11-16] MEDS: AMLODIPINE 10 MG TAB PO SCH (09:00)
[2016-11-16] MEDS ORDERED: ROPIVACAINE 0.5 % 30 ML VIAL ONE (09:09)
[2016-11-16] MEDS: INSULIN ASPART [NOVOLOG] 3 ML PEN SC SCH ×4 (09:17→21:00)
[2016-11-16] MEDS ORDERED: LIDOCAINE 1% (MPF) 30 ML INJ INJ ONE (10:00)
[2016-11-16] MEDS ORDERED: HEPARIN 1000 UNITS/ML 10 ML INJ IRR ONE (10:00)
[2016-11-16] MEDS ORDERED: GELATIN SIZE 100 SPONGE TOP ONE (10:00)
[2016-11-16] MEDS ORDERED: THROMBIN 5000 UNIT VIAL TOP ONE (10:00)
--- NOTE | 2016-11-16 10:09 | CONS ---
Date/Time of Note Date/Time of Note DATE: 11/16/16 TIME: 10:07 Assessment/Plan Assessment/Plan Additional Assessment/Plan 1. End-stage renal disease on hemodialysis Monday, Monday, Monday. 2. Left upper extremity arteriovenous fistula graft creations, site infections , concerned about ____ infection getting worse. 3. Hypertension. 4. Diabetes mellitus. 5. History of recent admission for left upper extremity arteriovenous fistula site cellulitis, has been treated with intravenous antibiotics. PLAN: blood cx x 2 today plan for LUE AVF excision roday plan fo rHD today after juanito will need ID consult will follow up Consultation Date/Type/Reason Admit Date/Time Nov 14, 2016 at 18:30 Type of Consultation: NEPHROLOGY Referring Provider: DICKSON IVY MD 24 HR Interval Summary Free Text/Dictation s/p right juanito and had a HD yesteday, plan for surgery for LUE AVG Today Exam/Review of Systems Vital Signs Vitals Vital Signs Date Time Temp Pulse Resp B/P Pulse Ox O2 Delivery O2 Flow Rate FiO2 11/16/16 07:30 56 20 11/16/16 07:29 98.8 138/64 98 Intake and Output 11/15/16 11/15/16 11/16/16 15:00 23:00 07:00 Intake Total 480 ml 600 ml 500 ml Output Total 3500 ml Balance 480 ml -2900 ml 500 ml Exam GENERAL: Awake, alert. Moderate distress due to the pain. HEENT: Normal. Oropharynx clear. NECK: Supple. No JVD, no lymphadenopathy. LUNGS: Clear to auscultation. No crackles, no wheezes. HEART: S1, S2 with regular rhythm. No murmur. ABDOMEN: Soft, nontender, nondistended. Bowel sounds are positive. EXTREMITIES: LUE AVF no thrill, Results Result Diagram: 11/16/16 0532 11/16/16 0532 Results 24 hrs Laboratory Tests Test 11/15/16 12:21 11/15/16 17:38 11/15/16 20:50 11/16/16 05:32 Bedside Glucose 127 234 H 140 Activated Partial Thromboplast Time 28.6 Anion Gap 19 H Basophils # 0.0 Basophils % 0.7 Blood Morphology Comment Blood Urea Nitrogen 54 #H Calcium Level 8.1 L Carbon Dioxide Level 26 Chloride Level 98 Creatinine 5.52 #H Eosinophils # 0.2 Eosinophils % 3.5 Glucose Level 144 Hematocrit 31.9 L Hemoglobin 11.1 L INR International Normalized Ratio 1.07 Lymphocytes # 0.7 L Lymphocytes % 16.8 Mean Corpuscular Hemoglobin 32.3 Mean Corpuscular Hemoglobin Concent 34.8 Mean Corpuscular Volume 92.9 Mean Platelet Volume 8.1 Monocytes # 0.4 Monocytes % 8.1 Neutrophils # 3.1 Neutrophils % 70.9 Nucleated Red Blood Cells # 0.0 Nucleated Red Blood Cells % 0.0 Platelet Count 241 Potassium Level 4.9 Prothrombin Time 13.9 Prothrombin Time Ratio 1.1 Random Vancomycin Level 23.1 Red Blood Count 3.43 L Red Cell Distribution Width 14.7 H Sodium Level 138 Thrombin Time Pending White Blood Count 4.4 L Test 11/16/16 07:44 Bedside Glucose 164 Medications Medications Current Medications Ondansetron HCl (Zofran Inj) 4 mg Q6H PRN IV NAUSEA AND/OR VOMITING; Start at 20:30 Acetaminophen (Tylenol Tab) 650 mg Q6H PRN PO PAIN LEVEL 1-3 OR FEVER; Start at 20:30 Morphine Sulfate (morphine) 2 mg Q4H PRN IV SEVERE PAIN LEVEL 7-10; Start 11/14 at 20:30 Docusate Sodium (Colace) 100 mg Q12H PRN PO CONSTIPATION; Start 11/14/16 at 20: 30 Heparin Sodium (Porcine) (Heparin (5000 Units/0.5 ml)) 5,000 unit Q8 SC ; Start 11/14/16 at 22:00 Amlodipine Besylate (Norvasc) 10 mg DAILY PO Last administered on 11/15/16 09: 25; Admin Dose 10 MG; Start 11/14/16 at 20:30 Clonidine (Catapres) 0.1 mg QID PO Last administered on 11/15/16 20:44; Admin Dose 0.1 MG; Start 11/14/16 at 21:00 Hydralazine HCl (Apresoline) 10 mg Q6 PRN IV SBP>170; Start 11/14/16 at 20:30 Diagnostic Test (Pha) (Accucheck) 1 ea 02 XX ; Start 11/15/16 at 02:00 Atorvastatin Calcium (Lipitor) 20 mg HS PO Last administered on 11/15/16 20:44 ; Admin Dose 20 MG; Start 11/14/16 at 21:00 Acetaminophen (Tylenol Tab) 650 mg Q4H PRN PO PAIN AND OR ELEVATED TEMP Last administered on 11/15/16 20:41; Admin Dose 650 MG; Start 11/14/16 at 20:30 Miscellaneous Information 1 ea NOTE XX ; Start 11/14/16 at 20:30 Glucose (Glutose) 15 gm Q15M PRN PO DECREASED GLUCOSE; Start 11/14/16 at 20:30 Glucose (Glutose) 22.5 gm Q15M PRN PO DECREASED GLUCOSE; Start 11/14/16 at 20: 30 Dextrose (D50w Syringe) 25 ml Q15M PRN IV DECREASED GLUCOSE; Start 11/14/16 at 20:30 Dextrose (D50w Syringe) 50 ml Q15M PRN IV DECREASED GLUCOSE; Start 11/14/16 at 20:30 Glucagon (Glucagen) 1 mg Q15M PRN IM DECREASED GLUCOSE; Start 11/14/16 at 20:30 Glucose (Glutose) 15 gm Q15M PRN BUCCAL DECREASED GLUCOSE; Start 11/14/16 at 20 :30 Famotidine 20 mg 20 mg DAILY PO Last administered on 11/15/16 09:26; Admin Dose 20 MG; Start 11/15/16 at 09:00 Dextrose/Sodium Chloride 1,000 ml @ 40 mls/hr Q24H IV Last administered on 02:18; Admin Dose 40 MLS/HR; Start 11/15/16 at 00:00 Levofloxacin/ Dextrose 100 ml @ 100 mls/hr Q48H IVPB Last administered on 11/15 20:43; Admin Dose 100 MLS/HR; Start 11/15/16 at 19:00 Vancomycin HCl (Vancocin) 250 ml @ 125 mls/hr 22 IVPB ; Start 11/17/16 at 22:00 ; Stop 11/18/16 at 06:59 YA HAZEL MD Nov 16, 2016 10:08
[2016-11-16] MEDS ORDERED: THROMBIN 5000 UNIT VIAL ONE (10:11)
[2016-11-16] MEDS ORDERED: LIDOCAINE 1% (MPF) 30 ML INJ ONE (10:11)
[2016-11-16] MEDS ORDERED: GELATIN SIZE 100 SPONGE ONE (10:11)
[2016-11-16] MEDS ORDERED: FENTAnyl 50 MCG/ML VIAL ONE (10:35)
[2016-11-16] MEDS ORDERED: CEFAZOLIN 1 GM INJ ONE (10:35)
[2016-11-16] MEDS ORDERED: PROPOFOL 40 ML ONE (11:26)
[2016-11-16] MEDS ORDERED: hydrALAzine 20 MG INJ IV PRN (11:30)
[2016-11-16] MEDS ORDERED: ONDANSETRON 4 MG INJ IV PRN (11:30)
--- NOTE | 2016-11-16 15:52 | RADRPT ---
Vent Rate: 61 bpm RR Interval: 0 msec AR Interval: 176 msec QRS Duration: 104 msec QT Interval: 428 msec QTC Interval: 430 msec P-R-T [place]: 56 - -5 - 48 degrees Normal sinus rhythm Minimal voltage criteria for LVH, may be normal variant Borderline ECG Electronically Signed By: Eyal Godfrey [id number]
--- NOTE | 2016-11-16 18:09 | PN ---
Date/Time of Note Date/Time of Note DATE: 11/16/16 TIME: 18:06 Assessment/Plan VTE Prophylaxis VTE Prophylaxis Intervention: SCD's Lines/Catheters IV C[facility]ter Type ([facility] line still needed: Yes Urinary Cath still in place: No Assessment/Plan Chief Complaint/Hosp Course ASSESSMENT AND PLAN: 1. Possible infection of arteriovenous graft. Dr. Peguero is followed patient in infectious disease consultation. Continue antibiotics per ID. Status post vascular intervention on left upper extremity graft. 2. End-stage renal disease. Dr. Mejía is following the patient in nephrology consultation. Continue hemodialysis via right femoral Reese catheter. 3. Hypertension. Continue patient on Norvasc and Catapres. Hydralazine p.r.n. for systolic blood pressure above 170. 4. Hyperlipidemia. Continue Lipitor. 5. Diabetes mellitus type 2 with hemoglobin A1c 7.6. Continue metformin and NovoLog per mild algorithm sliding scale. 6. Anemia of chronic disease. Continue to monitor hemoglobin and hematocrit. 7. Hemodialysis access. Patient is status post right femoral catheter insertion. Plan for right upper extremities atrial venous fistula creation tomorrow by Dr. Ortiz, vascular surgery. Continue heparin for deep venous thrombosis prophylaxis and Pepcid for peptic ulcer disease prophylaxis. Further recommendations based on clinical course. Plan of care discussed with Dr. Alatorre. Problems: Subjective 24 Hr Interval Summary Free Text/Dictation Patient is status post vascular intervention on left upper extremity intravenous graft, pain is well controlled, patient denies any fever nausea vomiting. Exam/Review of Systems Vital Signs Vitals Vital Signs Date Time Temp Pulse Resp B/P Pulse Ox O2 Delivery O2 Flow Rate FiO2 11/16/16 15:00 98.0 62 20 110/68 11/16/16 13:30 97 11/16/16 12:32 Room Air Intake and Output 11/15/16 11/15/16 11/16/16 15:00 23:00 07:00 Intake Total 480 ml 600 ml 500 ml Output Total 3500 ml Balance 480 ml -2900 ml 500 ml Exam PHYSICAL ASSESSMENT: GENERAL: Well-developed, well-nourished gentleman currently is awake, alert. HEENT: Head is atraumatic, normocephalic. PERRLA. NECK: Supple. No mass or thyromegaly. CHEST: Sounds clear bilaterally. CARDIOVASCULAR: Normal S1, S2. No murmurs, gallops, clicks, rubs present. ABDOMEN: Round, soft, nondistended, nontender. Bowel sounds present. No guarding, no rebound tenderness. EXTREMITIES: The patient's left upper extremity arteriovenous fistula with some induration and erythema around the site and tenderness. Lower extremities : There is no edema, clubbing, cyanosis. Pulses equal bilaterally 2+. R fem HD cath Results Result Diagram: 11/16/16 0532 11/16/16 0532 Results 24 hrs Laboratory Tests Test 11/15/16 20:50 11/16/16 05:32 11/16/16 07:44 11/16/16 13:16 Bedside Glucose 140 164 137 Activated Partial Thromboplast Time 28.6 Anion Gap 19 H Basophils # 0.0 Basophils % 0.7 Blood Morphology Comment Blood Urea Nitrogen 54 #H Calcium Level 8.1 L Carbon Dioxide Level 26 Chloride Level 98 Creatinine 5.52 #H Eosinophils # 0.2 Eosinophils % 3.5 Glucose Level 144 Hematocrit 31.9 L Hemoglobin 11.1 L INR International Normalized Ratio 1.07 Lymphocytes # 0.7 L Lymphocytes % 16.8 Mean Corpuscular Hemoglobin 32.3 Mean Corpuscular Hemoglobin Concent 34.8 Mean Corpuscular Volume 92.9 Mean Platelet Volume 8.1 Monocytes # 0.4 Monocytes % 8.1 Neutrophils # 3.1 Neutrophils % 70.9 Nucleated Red Blood Cells # 0.0 Nucleated Red Blood Cells % 0.0 Platelet Count 241 Potassium Level 4.9 Prothrombin Time 13.9 Prothrombin Time Ratio 1.1 Random Vancomycin Level 23.1 Red Blood Count 3.43 L Red Cell Distribution Width 14.7 H Sodium Level 138 Thrombin Time 14.4 White Blood Count 4.4 L Test 11/16/16 17:10 Bedside Glucose 111 Medications Medications Current Medications Ondansetron HCl (Zofran Inj) 4 mg Q6H PRN IV NAUSEA AND/OR VOMITING; Start at 20:30 Acetaminophen (Tylenol Tab) 650 mg Q6H PRN PO PAIN LEVEL 1-3 OR FEVER; Start at 20:30 Morphine Sulfate (morphine) 2 mg Q4H PRN IV SEVERE PAIN LEVEL 7-10; Start 11/14 at 20:30 Docusate Sodium (Colace) 100 mg Q12H PRN PO CONSTIPATION; Start 11/14/16 at 20: 30 Heparin Sodium (Porcine) (Heparin (5000 Units/0.5 ml)) 5,000 unit Q8 SC Last administered on 11/16/16 15:21; Admin Dose 5,000 UNIT; Start 11/14/16 at 22:00 Amlodipine Besylate (Norvasc) 10 mg DAILY PO Last administered on 11/15/16 09: 25; Admin Dose 10 MG; Start 11/14/16 at 20:30 Clonidine (Catapres) 0.1 mg QID PO Last administered on 11/15/16 20:44; Admin Dose 0.1 MG; Start 11/14/16 at 21:00 Hydralazine HCl (Apresoline) 10 mg Q6 PRN IV SBP>170; Start 11/14/16 at 20:30 Diagnostic Test (Pha) (Accucheck) 1 ea 02 XX ; Start 11/15/16 at 02:00 Atorvastatin Calcium (Lipitor) 20 mg HS PO Last administered on 11/15/16 20:44 ; Admin Dose 20 MG; Start 11/14/16 at 21:00 Acetaminophen (Tylenol Tab) 650 mg Q4H PRN PO PAIN AND OR ELEVATED TEMP Last administered on 11/15/16 20:41; Admin Dose 650 MG; Start 11/14/16 at 20:30 Miscellaneous Information 1 ea NOTE XX ; Start 11/14/16 at 20:30 Glucose (Glutose) 15 gm Q15M PRN PO DECREASED GLUCOSE; Start 11/14/16 at 20:30 Glucose (Glutose) 22.5 gm Q15M PRN PO DECREASED GLUCOSE; Start 11/14/16 at 20: 30 Dextrose (D50w Syringe) 25 ml Q15M PRN IV DECREASED GLUCOSE; Start 11/14/16 at 20:30 Dextrose (D50w Syringe) 50 ml Q15M PRN IV DECREASED GLUCOSE; Start 11/14/16 at 20:30 Glucagon (Glucagen) 1 mg Q15M PRN IM DECREASED GLUCOSE; Start 11/14/16 at 20:30 Glucose (Glutose) 15 gm Q15M PRN BUCCAL DECREASED GLUCOSE; Start 11/14/16 at 20 :30 Famotidine 20 mg 20 mg DAILY PO Last administered on 11/15/16 09:26; Admin Dose 20 MG; Start 11/15/16 at 09:00 Dextrose/Sodium Chloride 1,000 ml @ 40 mls/hr Q24H IV Last administered on 02:18; Admin Dose 40 MLS/HR; Start 11/15/16 at 00:00 Levofloxacin/ Dextrose 100 ml @ 100 mls/hr Q48H IVPB Last administered on 11/15 20:43; Admin Dose 100 MLS/HR; Start 11/15/16 at 19:00 Vancomycin HCl (Vancocin) 250 ml @ 125 mls/hr 22 IVPB ; Start 11/17/16 at 22:00 ; Stop 11/18/16 at 06:59 KADEEM LEIGH Nov 16, 2016 18:09
[2016-11-16] MEDS: ATORVASTATIN 20 MG TAB PO SCH (21:42)
[2016-11-16] MEDS: DEXTROSE 5%-0.45% NACL 1,000 ML IV SCH ×2 (22:01)
--- NOTE | 2016-11-16 22:32 | PN ---
Date/Time of Note Date/Time of Note DATE: 11/16/16 TIME: 22:28 Assessment/Plan Lines/Catheters IV Catheter Type (from [facility]): [facility] in Place (from [facility]): No Assessment/Plan Chief Complaint/Hosp Course -End-stage renal disease: It seems that the patient's left upper extremity previous AV graft creation may have been infected. -S/P LUE graft ligation and excision -Will need antibiotics for 21 days -Follow up OR swab cultures -Dr. Argueta to schedule patient for Perm Cath when infection has resolved. For now continue with juanito catheter -Discussed findings, plan and management with the patient, she understands with her son at the bedside with a certified ice cream server. -Thank you for allowing us to partake in the care of your patient. Please call with any questions. Problems: Subjective 24 Hr Interval Summary Constitutional: no complaints Exam/Review of Systems Vital Signs Vitals Vital Signs Date Time Temp Pulse Resp B/P Pulse Ox O2 Delivery O2 Flow Rate FiO2 11/16/16 20:00 98.7 60 16 123/75 98 Room Air Intake and Output 11/15/16 11/15/16 11/16/16 15:00 23:00 07:00 Intake Total 480 ml 600 ml 500 ml Output Total 3500 ml Balance 480 ml -2900 ml 500 ml Exam Free Text/Dictation GENERAL: Alert and oriented x3 PULMONARY: Clear to auscultation bilaterally CARDIOVASCULAR: S1, S2 present. ABDOMEN: Soft, nontender, nondistended. Bowel sounds positive. EXTREMITIES: Left upper extremity: Palpable brachial pulse. Motor, sensory intact. Cap refill 2 to 3 seconds, edema of the forearm 1+. dressing intact and dry, vac functional Results Result Diagram: 11/16/16 0532 11/16/16 0532 MATTHEW HUGHES MD Nov 16, 2016 22:32
--- NOTE | 2016-11-17 00:31 | OPR ---
DATE OF OPERATION: 11/16/2016 SURGEON: Matthew Ortiz MD PREOPERATIVE DIAGNOSES: 1. End-stage renal disease. 2. Thrombosed left upper extremity arteriovenous graft. 3. Infected arteriovenous graft. POSTOPERATIVE DIAGNOSES: 1. End-stage renal disease. 2. Thrombosed left upper extremity arteriovenous graft. 3. Infected arteriovenous graft. OPERATION PERFORMED: 1. Excision and ligation of infected graft. 2. Debridement of the skin, subcutaneous tissue and muscle of the left upper extremity. 3. Placement of silver foam, KCI wound VAC. ANESTHESIA: Regional block and local. ESTIMATED BLOOD LOSS: Minimal. COMPLICATIONS: None. HEPARIN: None. SPECIMEN: 1. Culture swab sent from the arterial aspect of the graft. 2. Culture swab sent from the venous aspect of the graft. 2. Arterial graft sent for culture. 3. Venous graft sent for culture. INDICATIONS: This is a 55-year-old gentleman who presented with history of end-stage renal disease and current right groin Reese catheter. The patient had developed left upper extremity cellulitis , fluctuance over the area where the new graft is traveling. The patient had a ____, was admitted a bout 3 weeks ago in where he had an infected graft with pus on the anterolateral aspect of the upper arm. However, we had attempted to be able to preserve this fistula. Therefore, we did an interpos ition graft that was re-routed and tunneled in a new space. However, it seems that that new space h as also gotten infected. Therefore, the indications, risks, benefits and alternatives were discusse d with the patient regarding bleeding, thrombosis, embolization, myocardial infarction, , strok e, device malfunction, infection, nerve injury, limb loss, revascularization, and the patient has ag [place] to proceed. FINDINGS: During our arterial and venous excisions of the graft, the graft seemed to be well incorp orated, low suspicion to be infected at those segments. In the mid aspect of the graft tunnel, the graft was not well incorporated, and the ____ liquified thrombus was worrisome that it may have perry en infected. PROCEDURE: The patient was brought into the operating room table and positioned in supine position. Appropriate bony prominences were padded. Bilateral upper extremities were placed at 80 agrees. Antibiotics were given preoperatively as well. At this point, anesthesia team went ahead and placed a left upper extremity regional block with local sedation. A timeout was performed, and the approp riate sites were marked and confirmed. The left upper extremity was prepped and draped in usual sta ndard sterile fashion. Longitudinal incision was made over previous incision on the medial aspect of the upper arm proximal to the antecubital fossa. We carried our dissection through the skin and subcutaneous tissue, expo sing the arterial aspect of the graft near the arterial anastomosis. This area the was incorporated , we dissected free about 2 cm. At this juncture, the graft has already been thrombosed. Therefore , we went ahead and ligated the distal aspect of the graft. Culture swabs were sent from different aspects of the graft throughout the case. At this point, the arterial end of the graft using a 3-0 Prolene suture was ligated. End-arterial segment, we did leave a small cap of the graft in order to be able to avoid a revascularization and close the artery successfully. Prior to closure, we chec ked the graft, made sure that there was no thrombus within the arterial anastomosis. At this point, adequate hemostasis was achieved. Using a 3-0 Vicryl suture, went ahead and closed t he dermal layer, and skin kimmy were applied. Sterile dressing was applied as well. Next, our attention was then turned to the venous aspect of the graft. Using 1% lidocaine, that seg ment was anesthetized. Dissection was carried through the skin, subcutaneous tissue. The venous gr aft was exposed and, however, quite large. At this point, the graft in the distal segment was freed for about 3 cm. We were able to expose the venous aspect of the graft, which was also well incorpo rated to the axillary vein. However, there was what seemed to be a previous Viabahn graft which was removed, and it was identified that there was a possible rupture versus a penetrated ulcer had deve loped, and therefore a Viabahn was used in order to prevent any nonfunctioning of your AV fistula. The same process was repeated here as well. We made sure that hemostasis was achieved. Skin and steele bcutaneous tissue were almost ____. The axillary vein was repaired as well with a 6-0 Prolene sutur e, and the area of the graft anastomosis was identified and was completely removed. Upon its comple tion, cultures and specimens were sent. The graft was then excised. Wound VAC, KCI, silver sponge were placed, and the settings were set at 150 mmHg, high intensity and continuous. The patient cami erated procedure well, was taken to the postanesthesia care unit in stable condition. All instrumen t, sponge and needle counts were correct x2. PLAN: Will have the patient have his wound VAC changed on a Monday, Monday, Monday schedule and to arrange home health for him. The patient will continue with his antibiotics for a total of 21 da ys. Dictated By: MATTHEW SALGUERO/GILBERTO Conf#: [id number] DID#: [id number]
[2016-11-17] MEDS: ACCUCHECK XX SCH (02:00)
[2016-11-17 06:21] LABS: POTASSIUM 5.1 mmol/L (3.5-5.1)
[2016-11-17 06:24] LABS: CREATININE 6.79 mg/dl (0.61-1.24)
[2016-11-17] MEDS: HEPARIN 5,000 UNIT/0.5 ML SYG SC SCH ×3 (06:54→21:33)
[2016-11-17 07:16] LABS: BASOPHILS % 0.4 % (0.0-2.0); EOSINOPHILS # 0.2 10^3/ul (0.0-0.5); EOSINOPHILS % 3.7 % (0.0-7.0); HEMATOCRIT 30.8 % (42.0-52.0); HEMOGLOBIN 10.1 g/dl (14.0-18.0); LYMPHOCYTES # 0.9 10^3/ul (0.8-2.9); LYMPHOCYTES % 18.6 % (15.0-51.0); MEAN CORPUSCULAR HEMOGLOBIN 31.4 pg (29.0-33.0); MEAN CORPUSCULAR HGB CONC 32.8 g/dl (32.0-37.0); MEAN CORPUSCULAR VOLUME 95.7 fl (82.0-101.0); MEAN PLATELET VOLUME 9.9 fl (7.4-10.4); MONOCYTE # 0.5 10^3/ul (0.3-0.9); MONOCYTES % 11.8 % (0.0-11.0); NEUTROPHILS % 65.3 % (39.0-77.0); PLATELET COUNT 191 10^3/UL (140-440); RED BLOOD COUNT 3.22 10^6/ul (4.70-6.10); RED CELL DISTRIBUTION WIDTH 13.5 % (11.5-14.5); WHITE BLOOD COUNT 4.6 10^3/ul (4.8-10.8)
[2016-11-17 08:08] VITALS: BP 109/65; RESP 18
[2016-11-17] MEDS: metFORMIN 500 MG TAB NGT SCH ×2 (08:30→17:22)
[2016-11-17] MEDS: AMLODIPINE 10 MG TAB PO SCH (08:31)
[2016-11-17] MEDS: FAMOTIDINE 20 MG TAB PO SCH (08:31)
[2016-11-17] MEDS: INSULIN ASPART [NOVOLOG] 3 ML PEN SC SCH ×4 (08:40→20:12)
--- NOTE | 2016-11-17 09:14 | CONS ---
Date/Time of Note Date/Time of Note DATE: 11/17/16 TIME: 09:10 Assessment/Plan Assessment/Plan Additional Assessment/Plan 1. End-stage renal disease on hemodialysis Monday, Monday, Monday. 2. Left upper extremity arteriovenous fistula graft creations, site infections , concerned about infection getting worse. 3. Hypertension. 4. Diabetes mellitus. 5. History of recent admission for left upper extremity arteriovenous fistula site cellulitis, has been treated with intravenous antibiotics. PLAN: blood cx x 2- no growth to date s/p S/P LUE graft ligation and excision,wound vac in place , ashlyjoseruma has juanito HD catheter IV abx for infection Will continue HD MWF pt has [place] HD cathter, will check with HD unit if they accept with juanito Cathetr or not Consultation Date/Type/Reason Admit Date/Time Nov 14, 2016 at 18:30 Initial Consult Date Oct Type of Consultation: NEPHROLOGY Reason for Consultation ESRD on HD with infected LUE AVG Referring Provider: DICKSON IVY MD 24 HR Interval Summary Free Text/Dictation s/p S/P LUE graft ligation and excision, ashlyjoseruma has juanito HD catheter Exam/Review of Systems Vital Signs Vitals Vital Signs Date Time Temp Pulse Resp B/P Pulse Ox O2 Delivery O2 Flow Rate FiO2 11/17/16 08:08 97.3 56 18 109/65 100 11/16/16 20:00 Room Air Intake and Output 11/16/16 11/16/16 11/17/16 15:00 23:00 07:00 Intake Total 700 ml 1020 ml 280 ml Output Total 3020 ml Balance -2320 ml 1020 ml 280 ml Exam GENERAL: Awake, alert. Moderate distress due to the pain. HEENT: Normal. Oropharynx clear. NECK: Supple. No JVD, no lymphadenopathy. LUNGS: Clear to auscultation. No crackles, no wheezes. HEART: S1, S2 with regular rhythm. No murmur. ABDOMEN: Soft, nontender, nondistended. Bowel sounds are positive. EXTREMITIES: LUE wound vac in place Results Result Diagram: 11/17/16 0529 11/17/16 0529 Results 24 hrs Laboratory Tests Test 11/16/16 13:16 11/16/16 17:10 11/16/16 21:41 11/17/16 05:29 Bedside Glucose 137 111 143 Anion Gap 21 H Basophils # 0.0 Basophils % 0.4 Blood Urea Nitrogen 56 H Calcium Level 8.0 L Carbon Dioxide Level 24 Chloride Level 98 Creatinine 6.79 H Eosinophils # 0.2 Eosinophils % 3.7 Glucose Level 149 Hematocrit 30.8 L Hemoglobin 10.1 L Lymphocytes # 0.9 Lymphocytes % 18.6 Mean Corpuscular Hemoglobin 31.4 Mean Corpuscular Hemoglobin Concent 32.8 Mean Corpuscular Volume 95.7 Mean Platelet Volume 9.9 # Monocytes # 0.5 Monocytes % 11.8 H Neutrophils # 3.0 Neutrophils % 65.3 Nucleated Red Blood Cells # 0.0 Nucleated Red Blood Cells % 0.0 Platelet Count 191 # Potassium Level 5.1 Red Blood Count 3.22 L Red Cell Distribution Width 13.5 Sodium Level 138 White Blood Count 4.6 L Test 11/17/16 08:29 Bedside Glucose 177 Medications Medications Current Medications Ondansetron HCl (Zofran Inj) 4 mg Q6H PRN IV NAUSEA AND/OR VOMITING; Start at 20:30 Acetaminophen (Tylenol Tab) 650 mg Q6H PRN PO PAIN LEVEL 1-3 OR FEVER; Start at 20:30 Morphine Sulfate (morphine) 2 mg Q4H PRN IV SEVERE PAIN LEVEL 7-10 Last administered on 11/16/16 21:53; Admin Dose 2 MG; Start 11/14/16 at 20:30 Docusate Sodium (Colace) 100 mg Q12H PRN PO CONSTIPATION; Start 11/14/16 at 20: 30 Heparin Sodium (Porcine) (Heparin (5000 Units/0.5 ml)) 5,000 unit Q8 SC Last administered on 11/17/16 06:54; Admin Dose 5,000 UNIT; Start 11/14/16 at 22:00 Amlodipine Besylate (Norvasc) 10 mg DAILY PO Last administered on 11/17/16 08: 31; Admin Dose 10 MG; Start 11/14/16 at 20:30 Clonidine (Catapres) 0.1 mg QID PO Last administered on 11/17/16 08:31; Admin Dose 0.1 MG; Start 11/14/16 at 21:00 Hydralazine HCl (Apresoline) 10 mg Q6 PRN IV SBP>170; Start 11/14/16 at 20:30 Diagnostic Test (Pha) (Accucheck) 1 ea 02 XX ; Start 11/15/16 at 02:00 Atorvastatin Calcium (Lipitor) 20 mg HS PO Last administered on 11/16/16 21:42 ; Admin Dose 20 MG; Start 11/14/16 at 21:00 Acetaminophen (Tylenol Tab) 650 mg Q4H PRN PO PAIN AND OR ELEVATED TEMP Last administered on 11/15/16 20:41; Admin Dose 650 MG; Start 11/14/16 at 20:30 Miscellaneous Information 1 ea NOTE XX ; Start 11/14/16 at 20:30 Glucose (Glutose) 15 gm Q15M PRN PO DECREASED GLUCOSE; Start 11/14/16 at 20:30 Glucose (Glutose) 22.5 gm Q15M PRN PO DECREASED GLUCOSE; Start 11/14/16 at 20: 30 Dextrose (D50w Syringe) 25 ml Q15M PRN IV DECREASED GLUCOSE; Start 11/14/16 at 20:30 Dextrose (D50w Syringe) 50 ml Q15M PRN IV DECREASED GLUCOSE; Start 11/14/16 at 20:30 Glucagon (Glucagen) 1 mg Q15M PRN IM DECREASED GLUCOSE; Start 11/14/16 at 20:30 Glucose (Glutose) 15 gm Q15M PRN BUCCAL DECREASED GLUCOSE; Start 11/14/16 at 20 :30 Famotidine 20 mg 20 mg DAILY PO Last administered on 11/17/16 08:31; Admin Dose 20 MG; Start 11/15/16 at 09:00 Dextrose/Sodium Chloride 1,000 ml @ 40 mls/hr Q24H IV Last administered on 22:01; Admin Dose 40 MLS/HR; Start 11/15/16 at 00:00 Levofloxacin/ Dextrose 100 ml @ 100 mls/hr Q48H IVPB Last administered on 11/15 20:43; Admin Dose 100 MLS/HR; Start 11/15/16 at 19:00 Vancomycin HCl (Vancocin) 250 ml @ 125 mls/hr 22 IVPB ; Start 11/17/16 at 22:00 ; Stop 11/18/16 at 06:59 YA HAZEL MD Nov 17, 2016 09:14
--- NOTE | 2016-11-17 11:24 | PN ---
Date/Time of Note Date/Time of Note DATE: 11/17/16 TIME: 11:22 Assessment/Plan VTE Prophylaxis VTE Prophylaxis Intervention: heparin Lines/Catheters [facility] Type [facility]): [place] Urinary Cath still in place: No Assessment/Plan Assessment/Plan 1. 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 - per Dr. Peguero in infectious disease consultation. - Continue antibiotics per ID. - Status post vascular intervention on left upper extremity graft.- wound vac placement 2. End-stage renal disease. Dr. Mejía is following the patient in nephrology consultation. Continue hemodialysis via right femoral Reese catheter. 3. Hypertension. Continue patient on Norvasc and Catapres. Hydralazine p.r.n. for systolic blood pressure above 170. 4. Hyperlipidemia. Continue Lipitor. 5. Diabetes mellitus type 2 with hemoglobin A1c 7.6. Continue metformin and NovoLog per mild algorithm sliding scale. 6. Anemia of chronic disease. Continue to monitor hemoglobin and hematocrit. 7. Hemodialysis access. Patient is status post right femoral catheter insertion. Plan for right upper extremities atrial venous fistula creation tomorrow by Dr. Ortiz, vascular surgery. Continue heparin for deep venous thrombosis prophylaxis and Pepcid for peptic ulcer disease prophylaxis. Further recommendations based on clinical course. Plan of care discussed with Dr. Alatorre. P Subjective 24 Hr Interval Summary Constitutional: improved Eyes: no complaints ENT: no complaints Respiratory: no complaints Cardiovascular: no complaints Genitourinary: no complaints Musculoskeletal: no complaints Skin: no complaints Neurologic: no complaints Endocrine: no complaints Lymphatic: no complaints Exam/Review of Systems Vital Signs Vitals Vital Signs Date Time Temp Pulse Resp B/P Pulse Ox O2 Delivery O2 Flow Rate FiO2 11/17/16 08:08 97.3 56 18 109/65 100 11/16/16 20:00 Room Air Intake and Output 11/16/16 11/16/16 11/17/16 15:00 23:00 07:00 Intake Total 700 ml 1020 ml 280 ml Output Total 3020 ml Balance -2320 ml 1020 ml 280 ml Exam Constitutional: alert, oriented Psych: no complaints Head: atraumatic Eyes: EOMI, PERRL, nl conjunctiva, nl sclera ENMT: nl external ears & nose Neck: non-tender Respiratory: clear to auscultation Cardiovascular: nl pulses Gastrointestinal: non-tender, soft Musculoskeletal: other Neurological: nl mental status, nl speech Skin: other Results Result Diagram: 11/17/16 0529 11/17/16 0529 Results 24 hrs Laboratory Tests Test 11/16/16 13:16 11/16/16 17:10 11/16/16 21:41 11/17/16 05:29 Bedside Glucose 137 111 143 Anion Gap 21 H Basophils # 0.0 Basophils % 0.4 Blood Urea Nitrogen 56 H Calcium Level 8.0 L Carbon Dioxide Level 24 Chloride Level 98 Creatinine 6.79 H Eosinophils # 0.2 Eosinophils % 3.7 Glucose Level 149 Hematocrit 30.8 L Hemoglobin 10.1 L Lymphocytes # 0.9 Lymphocytes % 18.6 Mean Corpuscular Hemoglobin 31.4 Mean Corpuscular Hemoglobin Concent 32.8 Mean Corpuscular Volume 95.7 Mean Platelet Volume 9.9 # Monocytes # 0.5 Monocytes % 11.8 H Neutrophils # 3.0 Neutrophils % 65.3 Nucleated Red Blood Cells # 0.0 Nucleated Red Blood Cells % 0.0 Platelet Count 191 # Potassium Level 5.1 Red Blood Count 3.22 L Red Cell Distribution Width 13.5 Sodium Level 138 White Blood Count 4.6 L Test 11/17/16 08:29 Bedside Glucose 177 Medications Medications Current Medications Ondansetron HCl (Zofran Inj) 4 mg Q6H PRN IV NAUSEA AND/OR VOMITING; Start at 20:30 Acetaminophen (Tylenol Tab) 650 mg Q6H PRN PO PAIN LEVEL 1-3 OR FEVER; Start at 20:30 Morphine Sulfate (morphine) 2 mg Q4H PRN IV SEVERE PAIN LEVEL 7-10 Last administered on 11/16/16 21:53; Admin Dose 2 MG; Start 11/14/16 at 20:30 Docusate Sodium (Colace) 100 mg Q12H PRN PO CONSTIPATION; Start 11/14/16 at 20: 30 Heparin Sodium (Porcine) (Heparin (5000 Units/0.5 ml)) 5,000 unit Q8 SC Last administered on 11/17/16 06:54; Admin Dose 5,000 UNIT; Start 11/14/16 at 22:00 Amlodipine Besylate (Norvasc) 10 mg DAILY PO Last administered on 11/17/16 08: 31; Admin Dose 10 MG; Start 11/14/16 at 20:30 Clonidine (Catapres) 0.1 mg QID PO Last administered on 11/17/16 08:31; Admin Dose 0.1 MG; Start 11/14/16 at 21:00 Hydralazine HCl (Apresoline) 10 mg Q6 PRN IV SBP>170; Start 11/14/16 at 20:30 Diagnostic Test (Pha) (Accucheck) 1 ea 02 XX ; Start 11/15/16 at 02:00 Atorvastatin Calcium (Lipitor) 20 mg HS PO Last administered on 11/16/16 21:42 ; Admin Dose 20 MG; Start 11/14/16 at 21:00 Acetaminophen (Tylenol Tab) 650 mg Q4H PRN PO PAIN AND OR ELEVATED TEMP Last administered on 11/15/16 20:41; Admin Dose 650 MG; Start 11/14/16 at 20:30 Miscellaneous Information 1 ea NOTE XX ; Start 11/14/16 at 20:30 Glucose (Glutose) 15 gm Q15M PRN PO DECREASED GLUCOSE; Start 11/14/16 at 20:30 Glucose (Glutose) 22.5 gm Q15M PRN PO DECREASED GLUCOSE; Start 11/14/16 at 20: 30 Dextrose (D50w Syringe) 25 ml Q15M PRN IV DECREASED GLUCOSE; Start 11/14/16 at 20:30 Dextrose (D50w Syringe) 50 ml Q15M PRN IV DECREASED GLUCOSE; Start 11/14/16 at 20:30 Glucagon (Glucagen) 1 mg Q15M PRN IM DECREASED GLUCOSE; Start 11/14/16 at 20:30 Glucose (Glutose) 15 gm Q15M PRN BUCCAL DECREASED GLUCOSE; Start 11/14/16 at 20 :30 Famotidine 20 mg 20 mg DAILY PO Last administered on 11/17/16 08:31; Admin Dose 20 MG; Start 11/15/16 at 09:00 Levofloxacin/ Dextrose 100 ml @ 100 mls/hr Q48H IVPB Last administered on 11/15 20:43; Admin Dose 100 MLS/HR; Start 11/15/16 at 19:00 Vancomycin HCl (Vancocin) 250 ml @ 125 mls/hr 22 IVPB ; Start 11/17/16 at 22:00 ; Stop 11/18/16 at 06:59 DEVAUGHN BRYANT Nov 17, 2016 11:24
--- NOTE | 2016-11-17 12:58 | PN ---
DATE: 11/17/2016 SUBJECTIVE: No acute changes. The patient is alert, sitting up in bed, looks comfortable, no fever s. INDWELLINGS: Right thigh Reese. ANTIMICROBIALS: He is on: 1. IV vancomycin. 2. Levaquin. PHYSICAL EXAMINATION: GENERAL: This is a well-developed, middle-aged man who is alert, in no distress. HEENT: Head atraumatic, normocephalic. Sclerae anicteric. Buccal mucosa pink. NECK: Supple. CHEST: Rise symmetrical. Breath sounds clear. HEART: S1, S2. ABDOMEN: Soft, bowel sounds present. EXTREMITIES: Left upper extremity wound VAC present at the upper arm. ASSESSMENT: 1. Status post excision and ligation of infected left upper extremity graft and placement of wound VAC. 2. End-stage renal disease, hemodialysis dependent. 3. Hypertension. 4. Diabetes. PLAN: The patient remains stable. Pending wound cultures. Continue present care. Change Levaquin to p.o. Follow vascular surgery recommendations. Dictated By: GRETA HENRY MANAGER PE for VIRGIE KEARNEY/GILBERTO Conf#: [id number] DID#: [id number]
[2016-11-17] MEDS: LEVOFLOXACIN 500 MG TAB PO SCH (14:39)
[2016-11-17 20:00] VITALS: BP 115/66; PULSE 65; RESP 16
[2016-11-17] MEDS: ATORVASTATIN 20 MG TAB PO SCH (20:10)
[2016-11-17] MEDS ORDERED: VANCOMYCIN 1 GM in NS 250 ML IVPB SCH (22:00)
[2016-11-18] VITALS (12 sets, daily range): BP systolic 95–134; BP diastolic 62–78; PULSE 60–70; RESP 16–18
[2016-11-18] MEDS: ACCUCHECK XX SCH (02:00)
[2016-11-18 05:26] LABS: ADD SCAN DIFF NO
[2016-11-18 05:33] LABS: HEMATOCRIT 30.1 % (42.0-52.0); HEMOGLOBIN 10.2 g/dl (14.0-18.0); MEAN CORPUSCULAR HEMOGLOBIN 31.6 pg (29.0-33.0); MEAN CORPUSCULAR HGB CONC 33.9 g/dl (32.0-37.0); MEAN CORPUSCULAR VOLUME 93.2 fl (82.0-101.0); RED BLOOD COUNT 3.23 10^6/ul (4.70-6.10); RED CELL DISTRIBUTION WIDTH 13.1 % (11.5-14.5); WHITE BLOOD COUNT 3.4 10^3/ul (4.8-10.8)
[2016-11-18 05:34] LABS: BASOPHILS % 0.6 % (0.0-2.0); EOSINOPHILS # 0.2 10^3/ul (0.0-0.5); EOSINOPHILS % 5.6 % (0.0-7.0); LYMPHOCYTES # 0.8 10^3/ul (0.8-2.9); LYMPHOCYTES % 22.1 % (15.0-51.0); MEAN PLATELET VOLUME 9.7 fl (7.4-10.4); MONOCYTE # 0.4 10^3/ul (0.3-0.9); MONOCYTES % 12.7 % (0.0-11.0); PLATELET COUNT 182 10^3/UL (140-415)
[2016-11-18 05:50] LABS: POTASSIUM 5.3 mmol/L (3.5-5.1)
[2016-11-18 05:53] LABS: CREATININE 8.09 mg/dl (0.61-1.24)
[2016-11-18 05:54] LABS: CALCIUM 7.9 mg/dl (8.4-10.2)
[2016-11-18] MEDS: HEPARIN 5,000 UNIT/0.5 ML SYG SC SCH ×3 (05:58→21:10)
[2016-11-18] MEDS: FAMOTIDINE 20 MG TAB PO SCH (07:57)
[2016-11-18] MEDS: metFORMIN 500 MG TAB NGT SCH ×2 (07:57→17:09)
[2016-11-18] MEDS: INSULIN ASPART [NOVOLOG] 3 ML PEN SC SCH ×4 (07:57→21:00)
[2016-11-18] MEDS: AMLODIPINE 10 MG TAB PO SCH (08:01)
--- NOTE | 2016-11-18 10:48 | CONS ---
Date/Time of Note Date/Time of Note DATE: 11/18/16 TIME: 10:43 Assessment/Plan Assessment/Plan Additional Assessment/Plan 1. End-stage renal disease on hemodialysis Monday, Monday, Monday. 2. Left upper extremity arteriovenous fistula graft creations, site infections , concerned about infection getting worse. 3. Hypertension. 4. Diabetes mellitus. 5. History of recent admission for left upper extremity arteriovenous fistula site cellulitis, has been treated with intravenous antibiotics. PLAN: blood cx x 2- no growth to date s/p S/P LUE graft ligation and excision,wound vac in place , currentlyy has juanito HD catheter IV abx for infection Will continue HD MWF, plan for HD today for hyperkalemia, pt has [place] HD cathter, will check with HD unit if they accept with juanito Cathetr or not Consultation Date/Type/Reason Admit Date/Time Nov 14, 2016 at 18:30 Initial Consult Date Oct Type of Consultation: NEPHROLOGY Reason for Consultation ESRD on HD with infected LUE AV graft Referring Provider: DICKSON IVY MD 24 HR Interval Summary Free Text/Dictation pt stable,afebrile, No complaints, on wound vac, K high, plan for HD today Exam/Review of Systems Vital Signs Vitals Vital Signs Date Time Temp Pulse Resp B/P Pulse Ox O2 Delivery O2 Flow Rate FiO2 11/18/16 08:00 98.4 62 16 134/76 97 Room Air Intake and Output 11/17/16 11/17/16 11/18/16 15:00 23:00 07:00 Intake Total 930 ml 250 ml Output Total 10 ml Balance 920 ml 250 ml Exam GENERAL: Awake, alert. Moderate distress due to the pain. HEENT: Normal. Oropharynx clear. NECK: Supple. No JVD, no lymphadenopathy. LUNGS: Clear to auscultation. No crackles, no wheezes. HEART: S1, S2 with regular rhythm. No murmur. ABDOMEN: Soft, nontender, nondistended. Bowel sounds are positive. EXTREMITIES: LUE wound vac in place Results Result Diagram: 11/18/16 0510 11/18/16 0510 Results 24 hrs Laboratory Tests Test 11/17/16 12:05 11/17/16 17:21 11/17/16 20:12 11/18/16 05:10 Bedside Glucose 136 125 97 Anion Gap 21 H Basophils # 0.0 Basophils % 0.6 Blood Urea Nitrogen 74 H Calcium Level 7.9 L Carbon Dioxide Level 21 Chloride Level 97 Creatinine 8.09 H Eosinophils # 0.2 Eosinophils % 5.6 Glucose Level 124 Hematocrit 30.1 L Hemoglobin 10.2 L Lymphocytes # 0.8 Lymphocytes % 22.1 Mean Corpuscular Hemoglobin 31.6 Mean Corpuscular Hemoglobin Concent 33.9 Mean Corpuscular Volume 93.2 Mean Platelet Volume 9.7 Monocytes # 0.4 Monocytes % 12.7 H Neutrophils # 2.0 Neutrophils % 59.0 Nucleated Red Blood Cells # 0.0 Nucleated Red Blood Cells % 0.0 Platelet Count 182 Potassium Level 5.3 H Red Blood Count 3.23 L Red Cell Distribution Width 13.1 Sodium Level 134 L White Blood Count 3.4 #L Test 11/18/16 07:56 Bedside Glucose 113 Medications Medications Current Medications Ondansetron HCl (Zofran Inj) 4 mg Q6H PRN IV NAUSEA AND/OR VOMITING; Start at 20:30 Acetaminophen (Tylenol Tab) 650 mg Q6H PRN PO PAIN LEVEL 1-3 OR FEVER; Start at 20:30 Morphine Sulfate (morphine) 2 mg Q4H PRN IV SEVERE PAIN LEVEL 7-10 Last administered on 11/16/16 21:53; Admin Dose 2 MG; Start 11/14/16 at 20:30 Docusate Sodium (Colace) 100 mg Q12H PRN PO CONSTIPATION; Start 11/14/16 at 20: 30 Heparin Sodium (Porcine) (Heparin (5000 Units/0.5 ml)) 5,000 unit Q8 SC Last administered on 11/18/16 05:58; Admin Dose 5,000 UNIT; Start 11/14/16 at 22:00 Amlodipine Besylate (Norvasc) 10 mg DAILY PO Last administered on 11/18/16 08: 01; Admin Dose 10 MG; Start 11/14/16 at 20:30 Clonidine (Catapres) 0.1 mg QID PO Last administered on 11/18/16 08:00; Admin Dose 0.1 MG; Start 11/14/16 at 21:00 Hydralazine HCl (Apresoline) 10 mg Q6 PRN IV SBP>170; Start 11/14/16 at 20:30 Diagnostic Test (Pha) (Accucheck) 1 ea 02 XX ; Start 11/15/16 at 02:00 Atorvastatin Calcium (Lipitor) 20 mg HS PO Last administered on 11/17/16 20:10 ; Admin Dose 20 MG; Start 11/14/16 at 21:00 Acetaminophen (Tylenol Tab) 650 mg Q4H PRN PO PAIN AND OR ELEVATED TEMP Last administered on 11/15/16 20:41; Admin Dose 650 MG; Start 11/14/16 at 20:30 Miscellaneous Information 1 ea NOTE XX ; Start 11/14/16 at 20:30 Glucose (Glutose) 15 gm Q15M PRN PO DECREASED GLUCOSE; Start 11/14/16 at 20:30 Glucose (Glutose) 22.5 gm Q15M PRN PO DECREASED GLUCOSE; Start 11/14/16 at 20: 30 Dextrose (D50w Syringe) 25 ml Q15M PRN IV DECREASED GLUCOSE; Start 11/14/16 at 20:30 Dextrose (D50w Syringe) 50 ml Q15M PRN IV DECREASED GLUCOSE; Start 11/14/16 at 20:30 Glucagon (Glucagen) 1 mg Q15M PRN IM DECREASED GLUCOSE; Start 11/14/16 at 20:30 Glucose (Glutose) 15 gm Q15M PRN BUCCAL DECREASED GLUCOSE; Start 11/14/16 at 20 :30 Famotidine (Pepcid) 20 mg DAILY PO Last administered on 11/18/16 07:57; Admin Dose 20 MG; Start 11/15/16 at 09:00 Levofloxacin (Levaquin) 500 mg Q48H PO Last administered on 11/17/16 14:39; Admin Dose 500 MG; Start 11/17/16 at 14:00 YA HAZEL MD Nov 18, 2016 10:48
--- NOTE | 2016-11-18 12:56 | CONS ---
Date/Time of Note Date/Time of Note DATE: 11/18/16 TIME: 12:54 Assessment/Plan Assessment/Plan Chief Complaint/Hosp Course SUBJECTIVE: No acute changes. The patient is alert, denies pain, looks comfortable, no fevers. INDWELLINGS: Right thigh Reese. ANTIMICROBIALS: 1. IV vancomycin. 2. Levaquin. PHYSICAL EXAMINATION: GENERAL: This is a well-developed, middle-aged man who is alert, in no distress. HEENT: Head atraumatic, normocephalic. Sclerae anicteric. Buccal mucosa pink. NECK: Supple. CHEST: Rise symmetrical. Breath sounds clear. HEART: S1, S2. ABDOMEN: Soft, bowel sounds present. EXTREMITIES: Left upper extremity wound VAC present at the upper arm. ASSESSMENT: 1. Status post excision and ligation of infected left upper extremity graft and placement of wound VAC. 2. End-stage renal disease, hemodialysis dependent. 3. Hypertension. 4. Diabetes. PLAN: The patient remains stable. Intraoperative cultures negative. Continue abx. Follow vascular surgery recommendations. Anticipate dc on IV Vanco post HD for 7-10 days [facility] staff Problems: Consultation Date/Type/Reason Admit Date/Time Nov 14, 2016 at 18:30 Initial Consult Date Type of Consultation: id Referring Provider: DICKSON IVY MD Exam/Review of Systems Vital Signs Vitals Vital Signs Date Time Temp Pulse Resp B/P Pulse Ox O2 Delivery O2 Flow Rate FiO2 11/18/16 08:00 98.4 62 16 134/76 97 Room Air Intake and Output 11/17/16 11/17/16 11/18/16 15:00 23:00 07:00 Intake Total 930 ml 250 ml Output Total 10 ml Balance 920 ml 250 ml Results Result Diagram: 11/18/16 0510 11/18/16 0510 Results 24 hrs Laboratory Tests Test 11/17/16 17:21 11/17/16 20:12 11/18/16 05:10 11/18/16 07:56 Bedside Glucose 125 97 113 Anion Gap 21 H Basophils # 0.0 Basophils % 0.6 Blood Urea Nitrogen 74 H Calcium Level 7.9 L Carbon Dioxide Level 21 Chloride Level 97 Creatinine 8.09 H Eosinophils # 0.2 Eosinophils % 5.6 Glucose Level 124 Hematocrit 30.1 L Hemoglobin 10.2 L Lymphocytes # 0.8 Lymphocytes % 22.1 Mean Corpuscular Hemoglobin 31.6 Mean Corpuscular Hemoglobin Concent 33.9 Mean Corpuscular Volume 93.2 Mean Platelet Volume 9.7 Monocytes # 0.4 Monocytes % 12.7 H Neutrophils # 2.0 Neutrophils % 59.0 Nucleated Red Blood Cells # 0.0 Nucleated Red Blood Cells % 0.0 Platelet Count 182 Potassium Level 5.3 H Red Blood Count 3.23 L Red Cell Distribution Width 13.1 Sodium Level 134 L White Blood Count 3.4 #L Test 11/18/16 12:00 Bedside Glucose 115 Medications Medications Current Medications Ondansetron HCl (Zofran Inj) 4 mg Q6H PRN IV NAUSEA AND/OR VOMITING; Start at 20:30 Acetaminophen (Tylenol Tab) 650 mg Q6H PRN PO PAIN LEVEL 1-3 OR FEVER; Start at 20:30 Morphine Sulfate (morphine) 2 mg Q4H PRN IV SEVERE PAIN LEVEL 7-10 Last administered on 11/16/16 21:53; Admin Dose 2 MG; Start 11/14/16 at 20:30 Docusate Sodium (Colace) 100 mg Q12H PRN PO CONSTIPATION; Start 11/14/16 at 20: 30 Heparin Sodium (Porcine) (Heparin (5000 Units/0.5 ml)) 5,000 unit Q8 SC Last administered on 11/18/16 05:58; Admin Dose 5,000 UNIT; Start 11/14/16 at 22:00 Amlodipine Besylate (Norvasc) 10 mg DAILY PO Last administered on 11/18/16 08: 01; Admin Dose 10 MG; Start 11/14/16 at 20:30 Clonidine (Catapres) 0.1 mg QID PO Last administered on 11/18/16 08:00; Admin Dose 0.1 MG; Start 11/14/16 at 21:00 Hydralazine HCl (Apresoline) 10 mg Q6 PRN IV SBP>170; Start 11/14/16 at 20:30 Diagnostic Test (Pha) (Accucheck) 1 ea 02 XX ; Start 11/15/16 at 02:00 Atorvastatin Calcium (Lipitor) 20 mg HS PO Last administered on 11/17/16 20:10 ; Admin Dose 20 MG; Start 11/14/16 at 21:00 Acetaminophen (Tylenol Tab) 650 mg Q4H PRN PO PAIN AND OR ELEVATED TEMP Last administered on 11/15/16 20:41; Admin Dose 650 MG; Start 11/14/16 at 20:30 Miscellaneous Information 1 ea NOTE XX ; Start 11/14/16 at 20:30 Glucose (Glutose) 15 gm Q15M PRN PO DECREASED GLUCOSE; Start 11/14/16 at 20:30 Glucose (Glutose) 22.5 gm Q15M PRN PO DECREASED GLUCOSE; Start 11/14/16 at 20: 30 Dextrose (D50w Syringe) 25 ml Q15M PRN IV DECREASED GLUCOSE; Start 11/14/16 at 20:30 Dextrose (D50w Syringe) 50 ml Q15M PRN IV DECREASED GLUCOSE; Start 11/14/16 at 20:30 Glucagon (Glucagen) 1 mg Q15M PRN IM DECREASED GLUCOSE; Start 11/14/16 at 20:30 Glucose (Glutose) 15 gm Q15M PRN BUCCAL DECREASED GLUCOSE; Start 11/14/16 at 20 :30 Famotidine (Pepcid) 20 mg DAILY PO Last administered on 11/18/16 07:57; Admin Dose 20 MG; Start 11/15/16 at 09:00 Levofloxacin (Levaquin) 500 mg Q48H PO Last administered on 11/17/16 14:39; Admin Dose 500 MG; Start 11/17/16 at 14:00 GRETA HENRY NP Nov 18, 2016 12:56
[2016-11-18] MEDS ORDERED: VANCOMYCIN 1 GM in NS 250 ML IVPB SCH (13:30)
[2016-11-18] MEDS ORDERED: VANCOMYCIN IV PER PHARMACY XX SCH (13:30)
--- NOTE | 2016-11-18 15:34 | PN ---
Date/Time of Note Date/Time of Note DATE: 11/18/16 TIME: 15:30 Assessment/Plan VTE Prophylaxis VTE Prophylaxis Intervention: SCD's Lines/Catheters IV C[facility]ter Type (from [facility]): Re[place] Cath Urinary Cath still in place: No Assessment/Plan Chief Complaint/Hosp Course ASSESSMENT AND PLAN: - Possible infection of arteriovenous graft. Dr. Peguero is followed patient in infectious disease consultation. Continue antibiotics per ID. Status post vascular intervention on left upper extremity graft. - Thrombosed left upper extremity arteriovenous graft, status post excision, ligation, and debridement of the graft by Dr. Ortiz, vascular surgery. - End-stage renal disease. Dr. Mejía is following the patient in nephrology consultation. Continue hemodialysis via right femoral Reese catheter. - Hypertension. Continue patient on Norvasc and Catapres. Hydralazine p.r.n. for systolic blood pressure above 170. - Hyperlipidemia. Continue Lipitor. - Diabetes mellitus type 2 with hemoglobin A1c 7.6. Continue metformin and NovoLog per mild algorithm sliding scale. - Anemia of chronic disease. Continue to monitor hemoglobin and hematocrit. - Hemodialysis access. Patient is status post right femoral catheter insertion by Dr. Ortiz, vascular surgery. Continue heparin for deep venous thrombosis prophylaxis and Pepcid for peptic ulcer disease prophylaxis. Further recommendations based on clinical course. Plan of care discussed with Dr. Alatorre. Problems: Subjective 24 Hr Interval Summary Free Text/Dictation Patient is afebrile, denies any nausea vomiting, pain is well controlled, pending hemodialysis today. Exam/Review of Systems Vital Signs Vitals Vital Signs Date Time Temp Pulse Resp B/P Pulse Ox O2 Delivery O2 Flow Rate FiO2 11/18/16 15:07 62 11/18/16 12:40 16 11/18/16 08:00 98.4 134/76 97 Room Air Intake and Output 11/17/16 11/17/16 11/18/16 15:00 23:00 07:00 Intake Total 930 ml 250 ml Output Total 10 ml Balance 920 ml 250 ml Exam PHYSICAL ASSESSMENT: GENERAL: Well-developed, well-nourished gentleman currently is awake, alert. HEENT: Head is atraumatic, normocephalic. PERRLA. NECK: Supple. No mass or thyromegaly. CHEST: Sounds clear bilaterally. CARDIOVASCULAR: Normal S1, S2. No murmurs, gallops, clicks, rubs present. ABDOMEN: Round, soft, nondistended, nontender. Bowel sounds present. No guarding, no rebound tenderness. EXTREMITIES: The patient's left upper extremity arteriovenous fistula site with wound vac. Lower extremities: There is no edema, clubbing, cyanosis. Pulses equal bilaterally 2+. R fem HD cath Results Result Diagram: 11/18/16 0510 11/18/16 0510 Results 24 hrs Laboratory Tests Test 11/17/16 17:21 11/17/16 20:12 11/18/16 05:10 11/18/16 07:56 Bedside Glucose 125 97 113 Anion Gap 21 H Basophils # 0.0 Basophils % 0.6 Blood Urea Nitrogen 74 H Calcium Level 7.9 L Carbon Dioxide Level 21 Chloride Level 97 Creatinine 8.09 H Eosinophils # 0.2 Eosinophils % 5.6 Glucose Level 124 Hematocrit 30.1 L Hemoglobin 10.2 L Lymphocytes # 0.8 Lymphocytes % 22.1 Mean Corpuscular Hemoglobin 31.6 Mean Corpuscular Hemoglobin Concent 33.9 Mean Corpuscular Volume 93.2 Mean Platelet Volume 9.7 Monocytes # 0.4 Monocytes % 12.7 H Neutrophils # 2.0 Neutrophils % 59.0 Nucleated Red Blood Cells # 0.0 Nucleated Red Blood Cells % 0.0 Platelet Count 182 Potassium Level 5.3 H Red Blood Count 3.23 L Red Cell Distribution Width 13.1 Sodium Level 134 L White Blood Count 3.4 #L Test 11/18/16 12:00 Bedside Glucose 115 Medications Medications Current Medications Ondansetron HCl (Zofran Inj) 4 mg Q6H PRN IV NAUSEA AND/OR VOMITING; Start at 20:30 Acetaminophen (Tylenol Tab) 650 mg Q6H PRN PO PAIN LEVEL 1-3 OR FEVER; Start at 20:30 Morphine Sulfate (morphine) 2 mg Q4H PRN IV SEVERE PAIN LEVEL 7-10 Last administered on 11/16/16t 21:53; Admin Dose 2 MG; Start 11/14/16 at 20:30 Docusate Sodium (Colace) 100 mg Q12H PRN PO CONSTIPATION; Start 11/14/16 at 20: 30 Heparin Sodium (Porcine) (Heparin (5000 Units/0.5 ml)) 5,000 unit Q8 SC Last administered on 11/18/16 13:55; Admin Dose 5,000 UNIT; Start 11/14/16 at 22:00 Amlodipine Besylate (Norvasc) 10 mg DAILY PO Last administered on 11/18/16 08: 01; Admin Dose 10 MG; Start 11/14/16 at 20:30 Clonidine (Catapres) 0.1 mg QID PO Last administered on 11/18/16 08:00; Admin Dose 0.1 MG; Start 11/14/16 at 21:00 Hydralazine HCl (Apresoline) 10 mg Q6 PRN IV SBP>170; Start 11/14/16 at 20:30 Diagnostic Test (Pha) (Accucheck) 1 ea 02 XX ; Start 11/15/16 at 02:00 Atorvastatin Calcium (Lipitor) 20 mg HS PO Last administered on 11/17/16 20:10 ; Admin Dose 20 MG; Start 11/14/16 at 21:00 Acetaminophen (Tylenol Tab) 650 mg Q4H PRN PO PAIN AND OR ELEVATED TEMP Last administered on 11/15/16 20:41; Admin Dose 650 MG; Start 11/14/16 at 20:30 Miscellaneous Information 1 ea NOTE XX ; Start 11/14/16 at 20:30 Glucose (Glutose) 15 gm Q15M PRN PO DECREASED GLUCOSE; Start 11/14/16 at 20:30 Glucose (Glutose) 22.5 gm Q15M PRN PO DECREASED GLUCOSE; Start 11/14/16 at 20: 30 Dextrose (D50w Syringe) 25 ml Q15M PRN IV DECREASED GLUCOSE; Start 11/14/16 at 20:30 Dextrose (D50w Syringe) 50 ml Q15M PRN IV DECREASED GLUCOSE; Start 11/14/16 at 20:30 Glucagon (Glucagen) 1 mg Q15M PRN IM DECREASED GLUCOSE; Start 11/14/16 at 20:30 Glucose (Glutose) 15 gm Q15M PRN BUCCAL DECREASED GLUCOSE; Start 11/14/16 at 20 :30 Famotidine (Pepcid) 20 mg DAILY PO Last administered on 11/18/16 07:57; Admin Dose 20 MG; Start 11/15/16 at 09:00 Levofloxacin 500 mg 500 mg Q48H PO Last administered on 2/23/17at 14:39; Admin Dose 500 MG; Start 11/17/16 at 14:00 Vancomycin HCl (Vancocin) 250 ml @ 125 mls/hr ONCE IVPB Last administered on 13:41; Admin Dose 125 MLS/HR; Start 11/18/16 at 13:30; Stop 11/18/16 at 17:00 KADEEM LEIGH Nov 18, 2016 15:34
[2016-11-18] MEDS: ATORVASTATIN 20 MG TAB PO SCH (21:04)
[2016-11-19] MEDS: ACCUCHECK XX SCH (02:00)
[2016-11-19 05:55] LABS: ADD SCAN DIFF NO
[2016-11-19 06:12] LABS: BASOPHILS % 0.6 % (0.0-2.0); EOSINOPHILS # 0.2 10^3/ul (0.0-0.5); EOSINOPHILS % 4.8 % (0.0-7.0); HEMATOCRIT 29.1 % (42.0-52.0); HEMOGLOBIN 9.8 g/dl (14.0-18.0); LYMPHOCYTES # 0.7 10^3/ul (0.8-2.9); LYMPHOCYTES % 20.3 % (15.0-51.0); MEAN CORPUSCULAR HEMOGLOBIN 31.2 pg (29.0-33.0); MEAN CORPUSCULAR HGB CONC 33.7 g/dl (32.0-37.0); MEAN CORPUSCULAR VOLUME 92.7 fl (82.0-101.0); MONOCYTE # 0.5 10^3/ul (0.3-0.9); MONOCYTES % 13.9 % (0.0-11.0); NEUTROPHILS % 60.1 % (39.0-77.0); PLATELET COUNT 143 10^3/UL (140-415); RED BLOOD COUNT 3.14 10^6/ul (4.70-6.10); RED CELL DISTRIBUTION WIDTH 13.1 % (11.5-14.5); WHITE BLOOD COUNT 3.3 10^3/ul (4.8-10.8)
[2016-11-19 06:29] LABS: POTASSIUM 4.8 mmol/L (3.5-5.1)
[2016-11-19] MEDS: HEPARIN 5,000 UNIT/0.5 ML SYG SC SCH ×3 (06:30→21:31)
[2016-11-19 06:32] LABS: CREATININE 6.87 mg/dl (0.61-1.24)
[2016-11-19 06:33] LABS: CALCIUM 8.1 mg/dl (8.4-10.2)
[2016-11-19 08:01] VITALS: BP 124/71; RESP 19
[2016-11-19] MEDS: AMLODIPINE 10 MG TAB PO SCH (08:14)
[2016-11-19] MEDS: FAMOTIDINE 20 MG TAB PO SCH (08:14)
[2016-11-19] MEDS: metFORMIN 500 MG TAB NGT SCH ×2 (08:14→17:39)
[2016-11-19] MEDS: INSULIN ASPART [NOVOLOG] 3 ML PEN SC SCH ×4 (08:15→21:00)
--- NOTE | 2016-11-19 12:23 | PN ---
Date/Time of Note Date/Time of Note DATE: 11/19/16 TIME: 12:22 Assessment/Plan VTE Prophylaxis VTE Prophylaxis Intervention: other Lines/Catheters IV [facility]atheter Type [facility]from [facility]): Reese Urinary Cath still in place: No Reason Cath still needed: urinary retention Assessment/Plan Assessment/Plan - Possible infection of arteriovenous graft. Dr. Peguero is followed patient in infectious disease consultation. Continue antibiotics per ID. Status post vascular intervention on left upper extremity graft. - Thrombosed left upper extremity arteriovenous graft, status post excision, ligation, and debridement of the graft by Dr. Ortiz, vascular surgery. - End-stage renal disease. Dr. Mejía is following the patient in nephrology consultation. Continue hemodialysis via right femoral Reese catheter. - Hypertension. Continue patient on Norvasc and Catapres. Hydralazine p.r.n. for systolic blood pressure above 170. - Hyperlipidemia. Continue Lipitor. - Diabetes mellitus type 2 with hemoglobin A1c 7.6. Continue metformin and NovoLog per mild algorithm sliding scale. - Anemia of chronic disease. Continue to monitor hemoglobin and hematocrit. - Hemodialysis access. Patient is status post right femoral catheter insertion by Dr. Ortiz, vascular surgery. Continue heparin for deep venous thrombosis prophylaxis and Pepcid for peptic ulcer disease prophylaxis. Further recommendations based on clinical course. Plan of care discussed with Dr. Alatorre. Exam/Review of Systems Vital Signs Vitals Vital Signs Date Time Temp Pulse Resp B/P Pulse Ox O2 Delivery O2 Flow Rate FiO2 11/19/16 08:01 98.6 64 19 124/71 99 11/18/16 20:45 Room Air Intake and Output 11/18/16 11/18/16 11/19/16 15:00 23:00 07:00 Intake Total 1490 ml 420 ml Output Total 2703 ml 0 ml Balance -1213 ml 420 ml Exam Constitutional: alert, well developed Psych: nl mood/affect Head: atraumatic Eyes: EOMI, PERRL, nl sclera ENMT: nl external ears & nose Respiratory: clear to auscultation Cardiovascular: nl pulses Gastrointestinal: non-tender Musculoskeletal: nl extremities to inspection Neurological: nl speech Lymph: nontender Results Result Diagram: 11/19/1651611/19/16 0517 Results 24 hrs Laboratory Tests Test 11/18/16 17:08 11/18/16 21:01 11/19/16 05:17 11/19/16 08:18 Bedside Glucose 105 134 114 Anion Gap 19 H Basophils # 0.0 Basophils % 0.6 Blood Urea Nitrogen 57 H Calcium Level 8.1 L Carbon Dioxide Level 27 Chloride Level 94 L Creatinine 6.87 H Eosinophils # 0.2 Eosinophils % 4.8 Glucose Level 169 Hematocrit 29.1 L Hemoglobin 9.8 L Lymphocytes # 0.7 L Lymphocytes % 20.3 Mean Corpuscular Hemoglobin 31.2 Mean Corpuscular Hemoglobin Concent 33.7 Mean Corpuscular Volume 92.7 Mean Platelet Volume 10.0 Monocytes # 0.5 Monocytes % 13.9 H Neutrophils # 2.0 Neutrophils % 60.1 Nucleated Red Blood Cells # 0.0 Nucleated Red Blood Cells % 0.0 Platelet Count 143 # Potassium Level 4.8 Red Blood Count 3.14 L Red Cell Distribution Width 13.1 Sodium Level 135 White Blood Count 3.3 L Medications Medications Current Medications Ondansetron HCl (Zofran Inj) 4 mg Q6H PRN IV NAUSEA AND/OR VOMITING; Start at 20:30 Acetaminophen (Tylenol Tab) 650 mg Q6H PRN PO PAIN LEVEL 1-3 OR FEVER; Start at 20:30 Morphine Sulfate (morphine) 2 mg Q4H PRN IV SEVERE PAIN LEVEL 7-10 Last administered on 11/16/16 21:53; Admin Dose 2 MG; Start 11/14/16 at 20:30 Docusate Sodium (Colace) 100 mg Q12H PRN PO CONSTIPATION; Start 11/14/16 at 20: 30 Heparin Sodium (Porcine) (Heparin (5000 Units/0.5 ml)) 5,000 unit Q8 SC Last administered on 11/19/16 06:30; Admin Dose 5,000 UNIT; Start 11/14/16 at 22:00 Amlodipine Besylate (Norvasc) 10 mg DAILY PO Last administered on 11/19/16 08: 14; Admin Dose 10 MG; Start 11/14/16 at 20:30 Clonidine (Catapres) 0.1 mg QID PO Last administered on 11/19/16 08:14; Admin Dose 0.1 MG; Start 11/14/16 at 21:00 Hydralazine HCl (Apresoline) 10 mg Q6 PRN IV SBP>170; Start 11/14/16 at 20:30 Diagnostic Test (Pha) (Accucheck) 1 ea 02 XX ; Start 11/15/16 at 02:00 Atorvastatin Calcium (Lipitor) 20 mg HS PO Last administered on 11/18/16 21:04 ; Admin Dose 20 MG; Start 11/14/16 at 21:00 Acetaminophen (Tylenol Tab) 650 mg Q4H PRN PO PAIN AND OR ELEVATED TEMP Last administered on 11/15/16 20:41; Admin Dose 650 MG; Start 11/14/16 at 20:30 Miscellaneous Information 1 ea NOTE XX ; Start 11/14/16 at 20:30 Glucose (Glutose) 15 gm Q15M PRN PO DECREASED GLUCOSE; Start 11/14/16 at 20:30 Glucose (Glutose) 22.5 gm Q15M PRN PO DECREASED GLUCOSE; Start 11/14/16 at 20: 30 Dextrose (D50w Syringe) 25 ml Q15M PRN IV DECREASED GLUCOSE; Start 11/14/16 at 20:30 Dextrose (D50w Syringe) 50 ml Q15M PRN IV DECREASED GLUCOSE; Start 11/14/16 at 20:30 Glucagon (Glucagen) 1 mg Q15M PRN IM DECREASED GLUCOSE; Start 11/14/16 at 20:30 Glucose (Glutose) 15 gm Q15M PRN BUCCAL DECREASED GLUCOSE; Start 11/14/16 at 20 :30 Famotidine (Pepcid) 20 mg DAILY PO Last administered on 11/19/16 08:14; Admin Dose 20 MG; Start 11/15/16 at 09:00 Levofloxacin (Levaquin) 500 mg Q48H PO Last administered on 11/17/16 14:39; Admin Dose 500 MG; Start 11/17/16 at 14:00 DEVAUGHN BRYANT Nov 19, 2016 12:23
--- NOTE | 2016-11-19 12:28 | CONS ---
Date/Time of Note Date/Time of Note DATE: 11/19/16 TIME: 12:26 Assessment/Plan Assessment/Plan Additional Assessment/Plan 1. End-stage renal disease on hemodialysis Monday, Monday, Monday. 2. Left upper extremity arteriovenous fistula graft creations, site infections , concerned about infection getting worse. 3. Hypertension. 4. Diabetes mellitus. 5. History of recent admission for left upper extremity arteriovenous fistula site cellulitis, has been treated with intravenous antibiotics. PLAN: blood cx x 2- no growth to date s/p S/P LUE graft ligation and excision,wound vac in place , currentlyy has juanito HD catheter , will decide about permacath on next week IV abx for infection Will continue HD MWF pt has [facility] HD cathter, will check with HD unit if they accept with juanito Cathetr or not Consultation Date/Type/Reason Admit Date/Time Nov 14, 2016 at 18:30 Initial Consult Date Oct Type of Consultation: id Referring Provider: DICKSON IVY MD Exam/Review of Systems Vital Signs Vitals Vital Signs Date Time Temp Pulse Resp B/P Pulse Ox O2 Delivery O2 Flow Rate FiO2 11/19/16 08:01 98.6 64 19 124/71 99 11/18/16 20:45 Room Air Intake and Output 11/18/16 11/18/16 11/19/16 14:59 22:59 06:59 Intake Total 1490 ml 420 ml Output Total 2703 ml 0 ml Balance -1213 ml 420 ml Exam GENERAL: Awake, alert. Moderate distress due to the pain. HEENT: Normal. Oropharynx clear. NECK: Supple. No JVD, no lymphadenopathy. LUNGS: Clear to auscultation. No crackles, no wheezes. HEART: S1, S2 with regular rhythm. No murmur. ABDOMEN: Soft, nontender, nondistended. Bowel sounds are positive. EXTREMITIES: LUE wound vac in place Results Result Diagram: 11/19/1651611/19/16516 Results 24 hrs Laboratory Tests Test 11/18/16 17:08 11/18/16 21:01 11/19/16 05:17 11/19/16 08:18 Bedside Glucose 105 134 114 Anion Gap 19 H Basophils # 0.0 Basophils % 0.6 Blood Urea Nitrogen 57 H Calcium Level 8.1 L Carbon Dioxide Level 27 Chloride Level 94 L Creatinine 6.87 H Eosinophils # 0.2 Eosinophils % 4.8 Glucose Level 169 Hematocrit 29.1 L Hemoglobin 9.8 L Lymphocytes # 0.7 L Lymphocytes % 20.3 Mean Corpuscular Hemoglobin 31.2 Mean Corpuscular Hemoglobin Concent 33.7 Mean Corpuscular Volume 92.7 Mean Platelet Volume 10.0 Monocytes # 0.5 Monocytes % 13.9 H Neutrophils # 2.0 Neutrophils % 60.1 Nucleated Red Blood Cells # 0.0 Nucleated Red Blood Cells % 0.0 Platelet Count 143 # Potassium Level 4.8 Red Blood Count 3.14 L Red Cell Distribution Width 13.1 Sodium Level 135 White Blood Count 3.3 L Medications Medications Current Medications Ondansetron HCl (Zofran Inj) 4 mg Q6H PRN IV NAUSEA AND/OR VOMITING; Start at 20:30 Acetaminophen (Tylenol Tab) 650 mg Q6H PRN PO PAIN LEVEL 1-3 OR FEVER; Start at 20:30 Morphine Sulfate (morphine) 2 mg Q4H PRN IV SEVERE PAIN LEVEL 7-10 Last administered on 11/16/16 21:53; Admin Dose 2 MG; Start 11/14/16 at 20:30 Docusate Sodium (Colace) 100 mg Q12H PRN PO CONSTIPATION; Start 11/14/16 at 20: 30 Heparin Sodium (Porcine) (Heparin (5000 Units/0.5 ml)) 5,000 unit Q8 SC Last administered on 11/19/16 06:30; Admin Dose 5,000 UNIT; Start 11/14/16 at 22:00 Amlodipine Besylate (Norvasc) 10 mg DAILY PO Last administered on 11/19/16 08: 14; Admin Dose 10 MG; Start 11/14/16 at 20:30 Clonidine (Catapres) 0.1 mg QID PO Last administered on 11/19/16 08:14; Admin Dose 0.1 MG; Start 11/14/16 at 21:00 Hydralazine HCl (Apresoline) 10 mg Q6 PRN IV SBP>170; Start 11/14/16 at 20:30 Diagnostic Test (Pha) (Accucheck) 1 ea 02 XX ; Start 11/15/16 at 02:00 Atorvastatin Calcium (Lipitor) 20 mg HS PO Last administered on 11/18/16 21:04 ; Admin Dose 20 MG; Start 11/14/16 at 21:00 Acetaminophen (Tylenol Tab) 650 mg Q4H PRN PO PAIN AND OR ELEVATED TEMP Last administered on 11/15/16 20:41; Admin Dose 650 MG; Start 11/14/16 at 20:30 Miscellaneous Information 1 ea NOTE XX ; Start 11/14/16 at 20:30 Glucose (Glutose) 15 gm Q15M PRN PO DECREASED GLUCOSE; Start 11/14/16 at 20:30 Glucose (Glutose) 22.5 gm Q15M PRN PO DECREASED GLUCOSE; Start 11/14/16 at 20: 30 Dextrose (D50w Syringe) 25 ml Q15M PRN IV DECREASED GLUCOSE; Start 11/14/16 at 20:30 Dextrose (D50w Syringe) 50 ml Q15M PRN IV DECREASED GLUCOSE; Start 11/14/16 at 20:30 Glucagon (Glucagen) 1 mg Q15M PRN IM DECREASED GLUCOSE; Start 11/14/16 at 20:30 Glucose (Glutose) 15 gm Q15M PRN BUCCAL DECREASED GLUCOSE; Start 11/14/16 at 20 :30 Famotidine (Pepcid) 20 mg DAILY PO Last administered on 11/19/16 08:14; Admin Dose 20 MG; Start 11/15/16 at 09:00 Levofloxacin (Levaquin) 500 mg Q48H PO Last administered on 11/17/16 14:39; Admin Dose 500 MG; Start 11/17/16 at 14:00 YA HAZEL MD Nov 19, 2016 12:28
--- NOTE | 2016-11-19 13:10 | PN ---
Date/Time of Note Date/Time of Note DATE: 11/19/16 TIME: 13:09 Assessment/Plan Lines/Catheters IV Catheter Type (from Nrsg): Juanito Briggs in Place (from Nrsg): No Assessment/Plan Chief Complaint/Hosp Course SP I and D LUE abscess pt with femoral juanito cath will need permcath prior to discharge Problems: Subjective 24 Hr Interval Summary Constitutional: improved Pain Control: mild Exam/Review of Systems Vital Signs Vitals Vital Signs Date Time Temp Pulse Resp B/P Pulse Ox O2 Delivery O2 Flow Rate FiO2 11/19/16 08:01 98.6 64 19 124/71 99 11/18/16 20:45 Room Air Intake and Output 11/18/16 11/18/16 11/19/16 15:00 23:00 07:00 Intake Total 1490 ml 420 ml Output Total 2703 ml 0 ml Balance -1213 ml 420 ml Exam ENMT: mucosa pink and moist, nl external ears & nose, nl lips & teeth, nl nasal mucosa & septum Neck: non-tender, supple Respiratory: clear to auscultation, normal air movement Cardiovascular: nl pulses, regular rate and rhythm Gastrointestinal: nl liver, spleen, non-tender, soft Results Result Diagram: 11/19/1651611/19/16516 MONIQUE FISHER MD Nov 19, 2016 13:09
[2016-11-19 13:32] VITALS: BP 81/52; PULSE 63
[2016-11-19] MEDS: LEVOFLOXACIN 500 MG TAB PO SCH (14:07)
[2016-11-19] MEDS: ATORVASTATIN 20 MG TAB PO SCH (21:17)
[2016-11-20] MEDS: ACCUCHECK XX SCH (02:00)
[2016-11-20] MEDS: HEPARIN 5,000 UNIT/0.5 ML SYG SC SCH ×3 (05:33→22:05)
[2016-11-20 06:13] LABS: ADD SCAN DIFF NO
[2016-11-20 06:22] LABS: POTASSIUM 5.1 mmol/L (3.5-5.1)
[2016-11-20 06:24] LABS: BASOPHILS % 0.3 % (0.0-2.0); EOSINOPHILS # 0.1 10^3/ul (0.0-0.5); EOSINOPHILS % 4.2 % (0.0-7.0); HEMATOCRIT 29.8 % (42.0-52.0); HEMOGLOBIN 10.2 g/dl (14.0-18.0); LYMPHOCYTES # 0.7 10^3/ul (0.8-2.9); LYMPHOCYTES % 23.8 % (15.0-51.0); MEAN CORPUSCULAR HEMOGLOBIN 31.7 pg (29.0-33.0); MEAN CORPUSCULAR HGB CONC 34.2 g/dl (32.0-37.0); MEAN CORPUSCULAR VOLUME 92.5 fl (82.0-101.0); MEAN PLATELET VOLUME 9.8 fl (7.4-10.4); MONOCYTE # 0.4 10^3/ul (0.3-0.9); MONOCYTES % 12.4 % (0.0-11.0); NEUTROPHIL # 1.8 10^3/ul (1.6-7.5); NEUTROPHILS % 59.3 % (39.0-77.0); PLATELET COUNT 143 10^3/UL (140-415); RED BLOOD COUNT 3.22 10^6/ul (4.70-6.10); RED CELL DISTRIBUTION WIDTH 13.1 % (11.5-14.5); WHITE BLOOD COUNT 3.1 10^3/ul (4.8-10.8)
[2016-11-20 06:24] LABS: CREATININE 7.68 mg/dl (0.61-1.24)
[2016-11-20 08:00] VITALS: BP 118/68; PULSE 66; RESP 18
[2016-11-20] MEDS: INSULIN ASPART [NOVOLOG] 3 ML PEN SC SCH ×4 (08:15→21:00)
[2016-11-20] MEDS: metFORMIN 500 MG TAB NGT SCH ×2 (08:33→17:21)
[2016-11-20] MEDS: FAMOTIDINE 20 MG TAB PO SCH (08:33)
[2016-11-20] MEDS: AMLODIPINE 10 MG TAB PO SCH (08:33)
--- NOTE | 2016-11-20 11:06 | PN ---
Date/Time of Note Date/Time of Note DATE: 11/20/16 TIME: 11:03 Assessment/Plan VTE Prophylaxis VTE Prophylaxis Intervention: ambulation, SCD's Lines/Catheters IV Catheter Type (from [facility]): juanito Urinary Cath still in place: No Assessment/Plan Assessment/Plan - Possible infection of arteriovenous graft. - Dr. Peguero is followed patient in infectious disease consultation. Continue antibiotics per ID. Status post vascular intervention on left upper extremity graft. - Thrombosed left upper extremity arteriovenous graft, status post excision, ligation, and debridement of the graft by Dr. Ortiz, vascular surgery. - End-stage renal disease. Dr. Mejía is following the patient in nephrology consultation. Continue hemodialysis via right femoral Juanito catheter. - Hypertension. Continue patient on Norvasc and Catapres. Hydralazine p.r.n. for systolic blood pressure above 170. - Hyperlipidemia. Continue Lipitor. - Diabetes mellitus type 2 with hemoglobin A1c 7.6. Continue metformin and NovoLog per mild algorithm sliding scale. - Anemia of chronic disease. Continue to monitor hemoglobin and hematocrit. - Hemodialysis access. Patient is status post right femoral catheter insertion by Dr. Ortiz, vascular surgery. Continue heparin for deep venous thrombosis prophylaxis and Pepcid for peptic ulcer disease prophylaxis. Further recommendations based on clinical course. Plan of care discussed with Dr. Alatorre. Subjective 24 Hr Interval Summary Constitutional: improved Eyes: no complaints ENT: no complaints Respiratory: no complaints Cardiovascular: no complaints Gastrointestinal: no complaints Genitourinary: no complaints Musculoskeletal: no complaints Skin: no complaints Neurologic: no complaints Endocrine: no complaints Lymphatic: no complaints Psychological: no complaints Immunologic: no complaints Exam/Review of Systems Vital Signs Vitals Vital Signs Date Time Temp Pulse Resp B/P Pulse Ox O2 Delivery O2 Flow Rate FiO2 11/20/16 08:00 98.8 66 18 118/68 100 Room Air Intake and Output 11/19/16 11/19/16 11/20/16 15:00 23:00 07:00 Intake Total 840 ml 350 ml Balance 840 ml 350 ml Exam Constitutional: alert, oriented, well developed Psych: nl mood/affect Head: atraumatic Eyes: EOMI, PERRL, nl sclera ENMT: nl external ears & nose Neck: non-tender Respiratory: clear to auscultation Cardiovascular: nl pulses Gastrointestinal: non-tender, soft Musculoskeletal: other (SP I and D LUE abscess,wound vac noted - intact) Extremities: normal pulses, other Neurological: nl mental status, nl speech Results Result Diagram: 11/20/16 0546 11/20/16 0549 Results 24 hrs Laboratory Tests Test 11/19/16 12:24 11/19/16 17:33 11/19/16 21:16 11/20/16 05:46 Bedside Glucose 153 106 88 Basophils # 0.0 Basophils % 0.3 Eosinophils # 0.1 Eosinophils % 4.2 Hematocrit 29.8 L Hemoglobin 10.2 L Lymphocytes # 0.7 L Lymphocytes % 23.8 Mean Corpuscular Hemoglobin 31.7 Mean Corpuscular Hemoglobin Concent 34.2 Mean Corpuscular Volume 92.5 Mean Platelet Volume 9.8 Monocytes # 0.4 Monocytes % 12.4 H Neutrophils # 1.8 Neutrophils % 59.3 Nucleated Red Blood Cells # 0.0 Nucleated Red Blood Cells % 0.0 Platelet Count 143 Red Blood Count 3.22 L Red Cell Distribution Width 13.1 White Blood Count 3.1 L Test 11/20/16 05:49 11/20/16 08:15 Anion Gap 21 H Blood Urea Nitrogen 71 H Calcium Level 8.0 L Carbon Dioxide Level 23 Chloride Level 97 Creatinine 7.68 H Glucose Level 112 # Potassium Level 5.1 Sodium Level 136 Bedside Glucose 113 Medications Medications Current Medications Ondansetron HCl (Zofran Inj) 4 mg Q6H PRN IV NAUSEA AND/OR VOMITING; Start at 20:30 Acetaminophen (Tylenol Tab) 650 mg Q6H PRN PO PAIN LEVEL 1-3 OR FEVER; Start at 20:30 Morphine Sulfate (morphine) 2 mg Q4H PRN IV SEVERE PAIN LEVEL 7-10 Last administered on 11/16/16 21:53; Admin Dose 2 MG; Start 11/14/16 at 20:30 Docusate Sodium (Colace) 100 mg Q12H PRN PO CONSTIPATION; Start 11/14/16 at 20: 30 Heparin Sodium (Porcine) (Heparin (5000 Units/0.5 ml)) 5,000 unit Q8 SC Last administered on 11/19/16 21:31; Admin Dose 5,000 UNIT; Start 11/14/16 at 22:00 Amlodipine Besylate (Norvasc) 10 mg DAILY PO Last administered on 11/20/16 08: 33; Admin Dose 10 MG; Start 11/14/16 at 20:30 Clonidine (Catapres) 0.1 mg QID PO Last administered on 11/19/16 21:18; Admin Dose 0.1 MG; Start 11/14/16 at 21:00 Hydralazine HCl (Apresoline) 10 mg Q6 PRN IV SBP>170; Start 11/14/16 at 20:30 Diagnostic Test (Pha) (Accucheck) 1 ea 02 XX ; Start 11/15/16 at 02:00 Atorvastatin Calcium (Lipitor) 20 mg HS PO Last administered on 11/19/16 21:17 ; Admin Dose 20 MG; Start 11/14/16 at 21:00 Acetaminophen (Tylenol Tab) 650 mg Q4H PRN PO PAIN AND OR ELEVATED TEMP Last administered on 11/15/16 20:41; Admin Dose 650 MG; Start 11/14/16 at 20:30 Miscellaneous Information 1 ea NOTE XX ; Start 11/14/16 at 20:30 Glucose (Glutose) 15 gm Q15M PRN PO DECREASED GLUCOSE; Start 11/14/16 at 20:30 Glucose (Glutose) 22.5 gm Q15M PRN PO DECREASED GLUCOSE; Start 11/14/16 at 20: 30 Dextrose (D50w Syringe) 25 ml Q15M PRN IV DECREASED GLUCOSE; Start 11/14/16 at 20:30 Dextrose (D50w Syringe) 50 ml Q15M PRN IV DECREASED GLUCOSE; Start 11/14/16 at 20:30 Glucagon (Glucagen) 1 mg Q15M PRN IM DECREASED GLUCOSE; Start 11/14/16 at 20:30 Glucose (Glutose) 15 gm Q15M PRN BUCCAL DECREASED GLUCOSE; Start 11/14/16 at 20 :30 Famotidine (Pepcid) 20 mg DAILY PO Last administered on 11/20/16 08:33; Admin Dose 20 MG; Start 11/15/16 at 09:00 Levofloxacin (Levaquin) 500 mg Q48H PO Last administered on 11/19/16 14:07; Admin Dose 500 MG; Start 11/17/16 at 14:00 DEVAUGHN BRYANT Nov 20, 2016 11:06
--- NOTE | 2016-11-20 12:00 | CONS ---
Date/Time of Note Date/Time of Note DATE: 11/20/16 TIME: 11:58 Assessment/Plan Assessment/Plan Additional Assessment/Plan 1. End-stage renal disease on hemodialysis Monday, Monday, Monday. 2. Left upper extremity arteriovenous fistula graft creations, site infections , concerned about infection getting worse. 3. Hypertension. 4. Diabetes mellitus. 5. History of recent admission for left upper extremity arteriovenous fistula site cellulitis, has been treated with intravenous antibiotics. PLAN: blood cx x 2- no growth to date s/p S/P LUE graft ligation and excision,wound vac in place , currentlyy has juanito HD catheter , will decide about permacath on next week IV abx for infection HD for tomorrow, will keep him on MWF list I checked with patient hemodialysis unit they can not accept pt with juanito catheter, he needs permacath placement before d/c Consultation Date/Type/Reason Admit Date/Time Nov 14, 2016 at 18:30 Initial Consult Date Oct Type of Consultation: NEPHROLOGY Reason for Consultation ESRD on HD with infected LUE AVG s/p Removal and wound vac in place, Referring Provider: DICKSON IVY MD 24 HR Interval Summary Free Text/Dictation still has LUE Wound vac, BP stable, has juanito in groin for HD access Exam/Review of Systems Vital Signs Vitals Vital Signs Date Time Temp Pulse Resp B/P Pulse Ox O2 Delivery O2 Flow Rate FiO2 11/20/16 08:00 98.8 66 18 118/68 100 Room Air Intake and Output 11/19/16 11/19/16 11/20/16 15:00 23:00 07:00 Intake Total 840 ml 350 ml Balance 840 ml 350 ml Exam GENERAL: Awake, alert. Moderate distress due to the pain. HEENT: Normal. Oropharynx clear. NECK: Supple. No JVD, no lymphadenopathy. LUNGS: Clear to auscultation. No crackles, no wheezes. HEART: S1, S2 with regular rhythm. No murmur. ABDOMEN: Soft, nontender, nondistended. Bowel sounds are positive. EXTREMITIES: LUE wound vac in place Results Result Diagram: 11/20/16 0546 11/20/16 0549 Results 24 hrs Laboratory Tests Test 11/19/16 12:24 11/19/16 17:33 11/19/16 21:16 11/20/16 05:46 Bedside Glucose 153 106 88 Basophils # 0.0 Basophils % 0.3 Eosinophils # 0.1 Eosinophils % 4.2 Hematocrit 29.8 L Hemoglobin 10.2 L Lymphocytes # 0.7 L Lymphocytes % 23.8 Mean Corpuscular Hemoglobin 31.7 Mean Corpuscular Hemoglobin Concent 34.2 Mean Corpuscular Volume 92.5 Mean Platelet Volume 9.8 Monocytes # 0.4 Monocytes % 12.4 H Neutrophils # 1.8 Neutrophils % 59.3 Nucleated Red Blood Cells # 0.0 Nucleated Red Blood Cells % 0.0 Platelet Count 143 Red Blood Count 3.22 L Red Cell Distribution Width 13.1 White Blood Count 3.1 L Test 11/20/16 05:49 11/20/16 08:15 Anion Gap 21 H Blood Urea Nitrogen 71 H Calcium Level 8.0 L Carbon Dioxide Level 23 Chloride Level 97 Creatinine 7.68 H Glucose Level 112 # Potassium Level 5.1 Sodium Level 136 Bedside Glucose 113 Medications Medications Current Medications Ondansetron HCl (Zofran Inj) 4 mg Q6H PRN IV NAUSEA AND/OR VOMITING; Start at 20:30 Acetaminophen (Tylenol Tab) 650 mg Q6H PRN PO PAIN LEVEL 1-3 OR FEVER; Start at 20:30 Morphine Sulfate (morphine) 2 mg Q4H PRN IV SEVERE PAIN LEVEL 7-10 Last administered on 11/16/16 21:53; Admin Dose 2 MG; Start 11/14/16 at 20:30 Docusate Sodium (Colace) 100 mg Q12H PRN PO CONSTIPATION; Start 11/14/16 at 20: 30 Heparin Sodium (Porcine) (Heparin (5000 Units/0.5 ml)) 5,000 unit Q8 SC Last administered on 11/19/16 21:31; Admin Dose 5,000 UNIT; Start 11/14/16 at 22:00 Amlodipine Besylate (Norvasc) 10 mg DAILY PO Last administered on 11/20/16 08: 33; Admin Dose 10 MG; Start 11/14/16 at 20:30 Clonidine (Catapres) 0.1 mg QID PO Last administered on 11/19/16 21:18; Admin Dose 0.1 MG; Start 11/14/16 at 21:00 Hydralazine HCl (Apresoline) 10 mg Q6 PRN IV SBP>170; Start 11/14/16 at 20:30 Diagnostic Test (Pha) (Accucheck) 1 ea 02 XX ; Start 11/15/16 at 02:00 Atorvastatin Calcium (Lipitor) 20 mg HS PO Last administered on 11/19/16 21:17 ; Admin Dose 20 MG; Start 11/14/16 at 21:00 Acetaminophen (Tylenol Tab) 650 mg Q4H PRN PO PAIN AND OR ELEVATED TEMP Last administered on 11/15/16 20:41; Admin Dose 650 MG; Start 11/14/16 at 20:30 Miscellaneous Information 1 ea NOTE XX ; Start 11/14/16 at 20:30 Glucose (Glutose) 15 gm Q15M PRN PO DECREASED GLUCOSE; Start 11/14/16 at 20:30 Glucose (Glutose) 22.5 gm Q15M PRN PO DECREASED GLUCOSE; Start 11/14/16 at 20: 30 Dextrose (D50w Syringe) 25 ml Q15M PRN IV DECREASED GLUCOSE; Start 11/14/16 at 20:30 Dextrose (D50w Syringe) 50 ml Q15M PRN IV DECREASED GLUCOSE; Start 11/14/16 at 20:30 Glucagon (Glucagen) 1 mg Q15M PRN IM DECREASED GLUCOSE; Start 11/14/16 at 20:30 Glucose (Glutose) 15 gm Q15M PRN BUCCAL DECREASED GLUCOSE; Start 11/14/16 at 20 :30 Famotidine (Pepcid) 20 mg DAILY PO Last administered on 11/20/16 08:33; Admin Dose 20 MG; Start 11/15/16 at 09:00 Levofloxacin (Levaquin) 500 mg Q48H PO Last administered on 11/19/16 14:07; Admin Dose 500 MG; Start 11/17/16 at 14:00 YA HAZEL MD Nov 20, 2016 12:00
[2016-11-20 19:32] VITALS: BP 109/64; RESP 16
[2016-11-20] MEDS: ATORVASTATIN 20 MG TAB PO SCH (21:58)
[2016-11-21] VITALS (11 sets, daily range): BP systolic 114–157; BP diastolic 50–78; PULSE 65–88; RESP 18–20
[2016-11-21] MEDS: ACCUCHECK XX SCH (01:54)
[2016-11-21 05:48] LABS: ADD SCAN DIFF NO
[2016-11-21 05:52] LABS: BASOPHILS % 0.8 % (0.0-2.0); EOSINOPHILS # 0.2 10^3/ul (0.0-0.5); EOSINOPHILS % 3.9 % (0.0-7.0); HEMATOCRIT 30.7 % (42.0-52.0); HEMOGLOBIN 10.3 g/dl (14.0-18.0); LYMPHOCYTES # 0.7 10^3/ul (0.8-2.9); LYMPHOCYTES % 18.4 % (15.0-51.0); MEAN CORPUSCULAR HEMOGLOBIN 31.1 pg (29.0-33.0); MEAN CORPUSCULAR HGB CONC 33.6 g/dl (32.0-37.0); MEAN CORPUSCULAR VOLUME 92.7 fl (82.0-101.0); MEAN PLATELET VOLUME 9.9 fl (7.4-10.4); MONOCYTE # 0.4 10^3/ul (0.3-0.9); MONOCYTES % 10.8 % (0.0-11.0); NEUTROPHIL # 2.5 10^3/ul (1.6-7.5); NEUTROPHILS % 65.8 % (39.0-77.0); PLATELET COUNT 162 10^3/UL (140-415); RED BLOOD COUNT 3.31 10^6/ul (4.70-6.10); RED CELL DISTRIBUTION WIDTH 12.9 % (11.5-14.5); WHITE BLOOD COUNT 3.8 10^3/ul (4.8-10.8)
[2016-11-21] MEDS: HEPARIN 5,000 UNIT/0.5 ML SYG SC SCH ×3 (06:00→21:26)
[2016-11-21 06:14] LABS: POTASSIUM 5.7 mmol/L (3.5-5.1)
[2016-11-21 06:16] LABS: CREATININE 8.03 mg/dl (0.61-1.24)
[2016-11-21 06:17] LABS: CALCIUM 8.6 mg/dl (8.4-10.2)
[2016-11-21] MEDS: metFORMIN 500 MG TAB NGT SCH ×2 (07:51→17:44)
[2016-11-21] MEDS: FAMOTIDINE 20 MG TAB PO SCH (07:51)
[2016-11-21] MEDS: AMLODIPINE 10 MG TAB PO SCH (07:55)
[2016-11-21] MEDS: INSULIN ASPART [NOVOLOG] 3 ML PEN SC SCH ×4 (07:56→21:00)
[2016-11-21] MEDS: VANCOMYCIN 1 GM in NS 250 ML IVPB SCH ×2 (10:00→12:07)
--- NOTE | 2016-11-21 12:22 | CONS ---
Date/Time of Note Date/Time of Note DATE: 11/21/16 TIME: 12:20 Assessment/Plan Assessment/Plan Chief Complaint/Hosp Course SUBJECTIVE: No acute changes. The patient is alert, denies pain, looks comfortable, no fevers. Wants to go home INDWELLINGS: Right thigh Reese. ANTIMICROBIALS: 1. IV vancomycin. 2. Levaquin. PHYSICAL EXAMINATION: GENERAL: This is a well-developed, middle-aged man who is alert, in no distress. HEENT: Head atraumatic, normocephalic. Sclerae anicteric. Buccal mucosa pink. NECK: Supple. CHEST: Rise symmetrical. Breath sounds clear. HEART: S1, S2. ABDOMEN: Soft, bowel sounds present. EXTREMITIES: Left upper extremity wound VAC present at the upper arm. ASSESSMENT: 1. Status post excision and ligation of infected left upper extremity graft and placement of wound VAC. 2. End-stage renal disease, hemodialysis dependent. 3. Hypertension. 4. Diabetes. PLAN: The patient remains stable. Intraoperative cultures negative. Chiki Levaquin , complete Vanco for 8 more days, follow vascular surgery recommendations. DW staff Problems: Consultation Date/Type/Reason Admit Date/Time Nov 14, 2016 at 18:30 Type of Consultation: ID Referring Provider: DICKSON IVY MD Exam/Review of Systems Vital Signs Vitals Vital Signs Date Time Temp Pulse Resp B/P Pulse Ox O2 Delivery O2 Flow Rate FiO2 11/21/16 07:21 97.6 66 20 133/73 100 11/20/16 08:00 Room Air Results Result Diagram: 11/21/16 0502 11/21/16 0502 Results 24 hrs Laboratory Tests Test 11/20/16 17:23 11/20/16 21:57 11/21/16 05:02 11/21/16 07:53 Bedside Glucose 104 106 94 Anion Gap 24 H Basophils # 0.0 Basophils % 0.8 Blood Urea Nitrogen 84 H Calcium Level 8.6 Carbon Dioxide Level 21 Chloride Level 97 Creatinine 8.03 H Eosinophils # 0.2 Eosinophils % 3.9 Glucose Level 93 Hematocrit 30.7 L Hemoglobin 10.3 L Lymphocytes # 0.7 L Lymphocytes % 18.4 Mean Corpuscular Hemoglobin 31.1 Mean Corpuscular Hemoglobin Concent 33.6 Mean Corpuscular Volume 92.7 Mean Platelet Volume 9.9 Monocytes # 0.4 Monocytes % 10.8 Neutrophils # 2.5 Neutrophils % 65.8 Nucleated Red Blood Cells # 0.0 Nucleated Red Blood Cells % 0.0 Platelet Count 162 Potassium Level 5.7 H Random Vancomycin Level 16.3 Red Blood Count 3.31 L Red Cell Distribution Width 12.9 Sodium Level 136 White Blood Count 3.8 #L Test 11/21/16 12:03 Bedside Glucose 67 L Medications Medications Current Medications Ondansetron HCl (Zofran Inj) 4 mg Q6H PRN IV NAUSEA AND/OR VOMITING; Start at 20:30 Acetaminophen (Tylenol Tab) 650 mg Q6H PRN PO PAIN LEVEL 1-3 OR FEVER; Start at 20:30 Morphine Sulfate (morphine) 2 mg Q4H PRN IV SEVERE PAIN LEVEL 7-10 Last administered on 11/16/16 21:53; Admin Dose 2 MG; Start 11/14/16 at 20:30 Docusate Sodium (Colace) 100 mg Q12H PRN PO CONSTIPATION; Start 11/14/16 at 20: 30 Heparin Sodium (Porcine) (Heparin (5000 Units/0.5 ml)) 5,000 unit Q8 SC Last administered on 11/21/16 06:00; Admin Dose 5,000 UNIT; Start 11/14/16 at 22:00 Amlodipine Besylate (Norvasc) 10 mg DAILY PO Last administered on 11/20/16 08: 33; Admin Dose 10 MG; Start 11/14/16 at 20:30 Clonidine (Catapres) 0.1 mg QID PO Last administered on 11/20/16 21:59; Admin Dose 0.1 MG; Start 11/14/16 at 21:00 Hydralazine HCl (Apresoline) 10 mg Q6 PRN IV SBP>170; Start 11/14/16 at 20:30 Diagnostic Test (Pha) (Accucheck) 1 ea 02 XX ; Start 11/15/16 at 02:00 Atorvastatin Calcium (Lipitor) 20 mg HS PO Last administered on 11/20/16 21:58 ; Admin Dose 20 MG; Start 11/14/16 at 21:00 Acetaminophen (Tylenol Tab) 650 mg Q4H PRN PO PAIN AND OR ELEVATED TEMP Last administered on 11/15/16 20:41; Admin Dose 650 MG; Start 11/14/16 at 20:30 Miscellaneous Information 1 ea NOTE XX ; Start 11/14/16 at 20:30 Glucose (Glutose) 15 gm Q15M PRN PO DECREASED GLUCOSE; Start 11/14/16 at 20:30 Glucose (Glutose) 22.5 gm Q15M PRN PO DECREASED GLUCOSE; Start 11/14/16 at 20: 30 Dextrose (D50w Syringe) 25 ml Q15M PRN IV DECREASED GLUCOSE Last administered on 11/21/16 12:18; Admin Dose 25 ML; Start 11/14/16 at 20:30 Dextrose (D50w Syringe) 50 ml Q15M PRN IV DECREASED GLUCOSE; Start 11/14/16 at 20:30 Glucagon (Glucagen) 1 mg Q15M PRN IM DECREASED GLUCOSE; Start 11/14/16 at 20:30 Glucose (Glutose) 15 gm Q15M PRN BUCCAL DECREASED GLUCOSE; Start 11/14/16 at 20 :30 Famotidine (Pepcid) 20 mg DAILY PO Last administered on 11/21/16 07:51; Admin Dose 20 MG; Start 11/15/16 at 09:00 Levofloxacin 500 mg 500 mg Q48H PO Last administered on 11/19/16 14:07; Admin Dose 500 MG; Start 11/17/16 at 14:00 Vancomycin HCl (Vancocin) 250 ml @ 125 mls/hr ONCE IVPB ; Start 11/21/16 at 10: 00; Stop 11/22/16 at 06:59 GRETA HENRY NP Nov 21, 2016 12:22
[2016-11-21] MEDS ORDERED: HEPARIN 1000 UNITS/ML 10 ML INJ ONE (13:13)
[2016-11-21] MEDS ORDERED: LIDOCAINE 1% (MDV) 20 ML INJ ONE (13:13)
[2016-11-21] MEDS ORDERED: HEPARIN 1000 UNITS/NS (A-LINE) 1,000 ML ONE (13:13)
--- NOTE | 2016-11-21 17:21 | CONS ---
Date/Time of Note Date/Time of Note DATE: 11/21/16 TIME: 17:19 Assessment/Plan Assessment/Plan Additional Assessment/Plan 1. End-stage renal disease on hemodialysis Monday, Monday, Monday. 2. Left upper extremity arteriovenous fistula graft creations, site infections , concerned about infection getting worse. 3. Hypertension. 4. Diabetes mellitus. 5. History of recent admission for left upper extremity arteriovenous fistula site cellulitis, has been treated with intravenous antibiotics. PLAN: blood cx x 2- no growth to date s/p S/P LUE graft ligation and excision,wound vac in place plan for permacath today IV abx for infection HD for today will keep him on MWF list- if permacath works good then plan is to d/c juanito catheter I checked with patient hemodialysis unit they can not accept pt with juanito catheter, he needs permacath placement before d/c Consultation Date/Type/Reason Admit Date/Time Nov 14, 2016 at 18:30 Initial Consult Date Oct Type of Consultation: NEPHROLOGY Referring Provider: DICKSON IVY MD 24 HR Interval Summary Free Text/Dictation Plan for permacath, BP stable, HD today planned Exam/Review of Systems Vital Signs Vitals Vital Signs Date Time Temp Pulse Resp B/P Pulse Ox O2 Delivery O2 Flow Rate FiO2 11/21/16 16:54 69 11/21/16 14:15 18 11/21/16 07:21 97.6 133/73 100 11/20/16 08:00 Room Air Exam GENERAL: Awake, alert. Moderate distress due to the pain. HEENT: Normal. Oropharynx clear. NECK: Supple. No JVD, no lymphadenopathy. LUNGS: Clear to auscultation. No crackles, no wheezes. HEART: S1, S2 with regular rhythm. No murmur. ABDOMEN: Soft, nontender, nondistended. Bowel sounds are positive. EXTREMITIES: LUE wound vac in place Results Result Diagram: 11/21/16 0502 11/21/16 0502 Results 24 hrs Laboratory Tests Test 11/20/16 17:23 11/20/16 21:57 11/21/16 05:02 11/21/16 07:53 Bedside Glucose 104 106 94 Anion Gap 24 H Basophils # 0.0 Basophils % 0.8 Blood Urea Nitrogen 84 H Calcium Level 8.6 Carbon Dioxide Level 21 Chloride Level 97 Creatinine 8.03 H Eosinophils # 0.2 Eosinophils % 3.9 Glucose Level 93 Hematocrit 30.7 L Hemoglobin 10.3 L Lymphocytes # 0.7 L Lymphocytes % 18.4 Mean Corpuscular Hemoglobin 31.1 Mean Corpuscular Hemoglobin Concent 33.6 Mean Corpuscular Volume 92.7 Mean Platelet Volume 9.9 Monocytes # 0.4 Monocytes % 10.8 Neutrophils # 2.5 Neutrophils % 65.8 Nucleated Red Blood Cells # 0.0 Nucleated Red Blood Cells % 0.0 Platelet Count 162 Potassium Level 5.7 H Random Vancomycin Level 16.3 Red Blood Count 3.31 L Red Cell Distribution Width 12.9 Sodium Level 136 White Blood Count 3.8 #L Test 11/21/16 12:03 11/21/16 17:02 Bedside Glucose 67 L 137 Medications Medications Current Medications Ondansetron HCl (Zofran Inj) 4 mg Q6H PRN IV NAUSEA AND/OR VOMITING; Start at 20:30 Acetaminophen (Tylenol Tab) 650 mg Q6H PRN PO PAIN LEVEL 1-3 OR FEVER; Start at 20:30 Morphine Sulfate (morphine) 2 mg Q4H PRN IV SEVERE PAIN LEVEL 7-10 Last administered on 11/16/16 21:53; Admin Dose 2 MG; Start 11/14/16 at 20:30 Docusate Sodium (Colace) 100 mg Q12H PRN PO CONSTIPATION; Start 11/14/16 at 20: 30 Heparin Sodium (Porcine) (Heparin (5000 Units/0.5 ml)) 5,000 unit Q8 SC Last administered on 11/21/16 14:30; Admin Dose 5,000 UNIT; Start 11/14/16 at 22:00 Amlodipine Besylate (Norvasc) 10 mg DAILY PO Last administered on 11/20/16 08: 33; Admin Dose 10 MG; Start 11/14/16 at 20:30 Clonidine (Catapres) 0.1 mg QID PO Last administered on 11/20/16 21:59; Admin Dose 0.1 MG; Start 11/14/16 at 21:00 Hydralazine HCl (Apresoline) 10 mg Q6 PRN IV SBP>170; Start 11/14/16 at 20:30 Diagnostic Test (Pha) (Accucheck) 1 ea 02 XX ; Start 11/15/16 at 02:00 Atorvastatin Calcium (Lipitor) 20 mg HS PO Last administered on 11/20/16 21:58 ; Admin Dose 20 MG; Start 11/14/16 at 21:00 Acetaminophen (Tylenol Tab) 650 mg Q4H PRN PO PAIN AND OR ELEVATED TEMP Last administered on 11/15/16 20:41; Admin Dose 650 MG; Start 11/14/16 at 20:30 Miscellaneous Information 1 ea NOTE XX ; Start 11/14/16 at 20:30 Glucose (Glutose) 15 gm Q15M PRN PO DECREASED GLUCOSE; Start 11/14/16 at 20:30 Glucose (Glutose) 22.5 gm Q15M PRN PO DECREASED GLUCOSE; Start 11/14/16 at 20: 30 Dextrose (D50w Syringe) 25 ml Q15M PRN IV DECREASED GLUCOSE Last administered on 11/21/16 12:18; Admin Dose 25 ML; Start 11/14/16 at 20:30 Dextrose (D50w Syringe) 50 ml Q15M PRN IV DECREASED GLUCOSE; Start 11/14/16 at 20:30 Glucagon (Glucagen) 1 mg Q15M PRN IM DECREASED GLUCOSE; Start 11/14/16 at 20:30 Glucose (Glutose) 15 gm Q15M PRN BUCCAL DECREASED GLUCOSE; Start 11/14/16 at 20 :30 Famotidine 20 mg 20 mg DAILY PO Last administered on 11/21/16 07:51; Admin Dose 20 MG; Start 11/15/16 at 09:00 Vancomycin HCl (Vancocin) 250 ml @ 125 mls/hr ONCE IVPB Last administered on 12:07; Admin Dose 125 MLS/HR; Start 11/21/16 at 10:00; Stop 11/22/16 at 06:59 YA HAZEL MD Nov 21, 2016 17:21
--- NOTE | 2016-11-21 18:56 | PN ---
Date/Time of Note Date/Time of Note DATE: 11/21/16 TIME: 18:53 Assessment/Plan VTE Prophylaxis VTE Prophylaxis Intervention: SCD's Lines/Catheters IV Catheter Type ([facility] Permacath Urinary Cath still in place: No Assessment/Plan Chief Complaint/Hosp Course ASSESSMENT AND PLAN: - Possible infection of arteriovenous graft. Dr. Peguero is followed patient in infectious disease consultation. Continue antibiotics per ID. Status post vascular intervention on left upper extremity graft. - Thrombosed left upper extremity arteriovenous graft, status post excision, ligation, and debridement of the graft by Dr. Ortiz, vascular surgery. - End-stage renal disease. Dr. Mejía is following the patient in nephrology consultation. Continue hemodialysis via right femoral Reese catheter. - Hypertension. Continue patient on Norvasc and Catapres. Hydralazine p.r.n. for systolic blood pressure above 170. - Hyperlipidemia. Continue Lipitor. - Diabetes mellitus type 2 with hemoglobin A1c 7.6. Continue metformin and NovoLog per mild algorithm sliding scale. - Anemia of chronic disease. Continue to monitor hemoglobin and hematocrit. - Hemodialysis access. Patient is status post right femoral catheter insertion by Dr. Ortiz, vascular surgery. Patient is status post right chest permacath placement. Continue heparin for deep venous thrombosis prophylaxis and Pepcid for peptic ulcer disease prophylaxis. Further recommendations based on clinical course. Plan of care discussed with Dr. Alatorre. Problems: Subjective 24 Hr Interval Summary Free Text/Dictation Patient denies any nausea vomiting remains afebrile. Exam/Review of Systems Vital Signs Vitals Vital Signs Date Time Temp Pulse Resp B/P Pulse Ox O2 Delivery O2 Flow Rate FiO2 11/21/16 16:54 69 11/21/16 14:15 18 11/21/16 07:21 97.6 133/73 100 11/20/16 08:00 Room Air Exam PHYSICAL ASSESSMENT: GENERAL: Well-developed, well-nourished gentleman currently is awake, alert. HEENT: Head is atraumatic, normocephalic. PERRLA. NECK: Supple. No mass or thyromegaly. CHEST: Sounds clear bilaterally. CARDIOVASCULAR: Normal S1, S2. No murmurs, gallops, clicks, rubs present. ABDOMEN: Round, soft, nondistended, nontender. Bowel sounds present. No guarding, no rebound tenderness. EXTREMITIES: The patient's left upper extremity arteriovenous fistula site with wound vac. Lower extremities: There is no edema, clubbing, cyanosis. Pulses equal bilaterally 2+. R fem HD cath R chest permacath Results Result Diagram: 11/21/16 0502 11/21/16 0502 Results 24 hrs Laboratory Tests Test 11/20/16 21:57 11/21/16 05:02 11/21/16 07:53 11/21/16 12:03 Bedside Glucose 106 94 67 L Anion Gap 24 H Basophils # 0.0 Basophils % 0.8 Blood Urea Nitrogen 84 H Calcium Level 8.6 Carbon Dioxide Level 21 Chloride Level 97 Creatinine 8.03 H Eosinophils # 0.2 Eosinophils % 3.9 Glucose Level 93 Hematocrit 30.7 L Hemoglobin 10.3 L Lymphocytes # 0.7 L Lymphocytes % 18.4 Mean Corpuscular Hemoglobin 31.1 Mean Corpuscular Hemoglobin Concent 33.6 Mean Corpuscular Volume 92.7 Mean Platelet Volume 9.9 Monocytes # 0.4 Monocytes % 10.8 Neutrophils # 2.5 Neutrophils % 65.8 Nucleated Red Blood Cells # 0.0 Nucleated Red Blood Cells % 0.0 Platelet Count 162 Potassium Level 5.7 H Random Vancomycin Level 16.3 Red Blood Count 3.31 L Red Cell Distribution Width 12.9 Sodium Level 136 White Blood Count 3.8 #L Test 11/21/16 17:02 Bedside Glucose 137 Medications Medications Current Medications Ondansetron HCl (Zofran Inj) 4 mg Q6H PRN IV NAUSEA AND/OR VOMITING; Start at 20:30 Acetaminophen (Tylenol Tab) 650 mg Q6H PRN PO PAIN LEVEL 1-3 OR FEVER; Start at 20:30 Morphine Sulfate (morphine) 2 mg Q4H PRN IV SEVERE PAIN LEVEL 7-10 Last administered on 11/16/16 21:53; Admin Dose 2 MG; Start 11/14/16 at 20:30 Docusate Sodium (Colace) 100 mg Q12H PRN PO CONSTIPATION; Start 11/14/16 at 20: 30 Heparin Sodium (Porcine) (Heparin (5000 Units/0.5 ml)) 5,000 unit Q8 SC Last administered on 11/21/16 14:30; Admin Dose 5,000 UNIT; Start 11/14/16 at 22:00 Amlodipine Besylate (Norvasc) 10 mg DAILY PO Last administered on 11/20/16 08: 33; Admin Dose 10 MG; Start 11/14/16 at 20:30 Clonidine (Catapres) 0.1 mg QID PO Last administered on 11/20/16 21:59; Admin Dose 0.1 MG; Start 11/14/16 at 21:00 Hydralazine HCl (Apresoline) 10 mg Q6 PRN IV SBP>170; Start 11/14/16 at 20:30 Diagnostic Test (Pha) (Accucheck) 1 ea 02 XX ; Start 11/15/16 at 02:00 Atorvastatin Calcium (Lipitor) 20 mg HS PO Last administered on 11/20/16 21:58 ; Admin Dose 20 MG; Start 11/14/16 at 21:00 Acetaminophen (Tylenol Tab) 650 mg Q4H PRN PO PAIN AND OR ELEVATED TEMP Last administered on 11/15/16 20:41; Admin Dose 650 MG; Start 11/14/16 at 20:30 Miscellaneous Information 1 ea NOTE XX ; Start 11/14/16 at 20:30 Glucose (Glutose) 15 gm Q15M PRN PO DECREASED GLUCOSE; Start 11/14/16 at 20:30 Glucose (Glutose) 22.5 gm Q15M PRN PO DECREASED GLUCOSE; Start 11/14/16 at 20: 30 Dextrose (D50w Syringe) 25 ml Q15M PRN IV DECREASED GLUCOSE Last administered on 11/21/16 12:18; Admin Dose 25 ML; Start 11/14/16 at 20:30 Dextrose (D50w Syringe) 50 ml Q15M PRN IV DECREASED GLUCOSE; Start 11/14/16 at 20:30 Glucagon (Glucagen) 1 mg Q15M PRN IM DECREASED GLUCOSE; Start 11/14/16 at 20:30 Glucose (Glutose) 15 gm Q15M PRN BUCCAL DECREASED GLUCOSE; Start 11/14/16 at 20 :30 Famotidine 20 mg 20 mg DAILY PO Last administered on 11/21/16 07:51; Admin Dose 20 MG; Start 11/15/16 at 09:00 Vancomycin HCl (Vancocin) 250 ml @ 125 mls/hr ONCE IVPB Last administered on 12:07; Admin Dose 125 MLS/HR; Start 11/21/16 at 10:00; Stop 11/22/16 at 06:59 KADEEM LEIGH Nov 21, 2016 18:56
--- NOTE | 2016-11-21 20:06 | OPR ---
DATE OF OPERATION: PREOPERATIVE DIAGNOSIS: Renal failure. POSTOPERATIVE DIAGNOSIS: Renal failure. OPERATION PERFORMED: 1. Right internal jugular vein tunneled hemodialysis catheter placement. 2. Ultrasound guidance into the central vein. 3. Fluoroscopy. SURGEON: Monique Argueta MD ANESTHESIA: Local. CONSENT: Risks, benefits, complications, alternative therapies explained to the patient and family, consent obtained. OPERATIVE TECHNIQUE: The patient was placed in supine position, prepped and draped in usual sterile fashion, 1% lidocaine was used throughout the operation for local anesthesia. Access was gained in the right internal jugular vein under ultrasonic guidance. Guidewire was advanced through without any difficulty. Subcutaneous tissues dilated. A 19 cm tunneled hemodialysis catheter was brought i nto the subcutaneous tunnel, advanced into the right internal jugular vein and superior vena cava, a ll under fluoroscopic guidance. The tip was placed at the junction of the superior vena cava and ri ght atrium. Both ports of the catheter were aspirated and injected using heparinized saline solutio n. Catheter was secured to skin using 2-0 nylon sutures. The neck site and the exit site were clos ed using a single 3-0 Vicryl suture in interrupted fashion. Patient tolerated procedure well. Dictated By: MONIQUE BAÑUELOS/GILBERTO Conf#: [id number] DID#: [id number]
[2016-11-21] MEDS: ATORVASTATIN 20 MG TAB PO SCH (21:23)
[2016-11-22] MEDS: ACCUCHECK XX SCH (02:00)
[2016-11-22 05:30] LABS: ADD SCAN DIFF NO
[2016-11-22 05:37] LABS: BASOPHILS % 0.5 % (0.0-2.0); EOSINOPHILS # 0.1 10^3/ul (0.0-0.5); EOSINOPHILS % 2.4 % (0.0-7.0); HEMATOCRIT 30.7 % (42.0-52.0); HEMOGLOBIN 10.3 g/dl (14.0-18.0); LYMPHOCYTES # 0.7 10^3/ul (0.8-2.9); LYMPHOCYTES % 17.4 % (15.0-51.0); MEAN CORPUSCULAR HEMOGLOBIN 31.3 pg (29.0-33.0); MEAN CORPUSCULAR HGB CONC 33.6 g/dl (32.0-37.0); MEAN CORPUSCULAR VOLUME 93.3 fl (82.0-101.0); MEAN PLATELET VOLUME 9.9 fl (7.4-10.4); MONOCYTE # 0.5 10^3/ul (0.3-0.9); MONOCYTES % 12.4 % (0.0-11.0); NEUTROPHIL # 2.8 10^3/ul (1.6-7.5); NEUTROPHILS % 67.1 % (39.0-77.0); PLATELET COUNT 171 10^3/UL (140-415); RED BLOOD COUNT 3.29 10^6/ul (4.70-6.10); RED CELL DISTRIBUTION WIDTH 12.9 % (11.5-14.5); WHITE BLOOD COUNT 4.2 10^3/ul (4.8-10.8)
[2016-11-22] MEDS: HEPARIN 5,000 UNIT/0.5 ML SYG SC SCH ×3 (06:00→20:54)
[2016-11-22 06:14] LABS: CREATININE 6.02 mg/dl (0.61-1.24)
[2016-11-22 07:38] VITALS: BP 140/72; RESP 18
[2016-11-22] MEDS: FAMOTIDINE 20 MG TAB PO SCH (08:02)
[2016-11-22] MEDS: metFORMIN 500 MG TAB NGT SCH (08:02)
[2016-11-22] MEDS: AMLODIPINE 10 MG TAB PO SCH (08:03)
[2016-11-22] MEDS: INSULIN ASPART [NOVOLOG] 3 ML PEN SC SCH ×4 (08:05→20:54)
--- NOTE | 2016-11-22 08:42 | CONS ---
Date/Time of Note Date/Time of Note DATE: 11/22/16 TIME: 08:39 Assessment/Plan Assessment/Plan Additional Assessment/Plan 1. End-stage renal disease on hemodialysis Monday, Monday, Monday. 2. Left upper extremity arteriovenous fistula graft creations, site infections , concerned about infection getting worse. 3. Hypertension. 4. Diabetes mellitus. 5. History of recent admission for left upper extremity arteriovenous fistula site cellulitis, has been treated with intravenous antibiotics. PLAN: blood cx negative s/p S/P LUE graft ligation and excision,wound vac in plac,s/p Right chest permacath , juanito catheter has been discontinued IV abx for infection will continue HD MWF will follow up Consultation Date/Type/Reason Admit Date/Time Nov 14, 2016 at 18:30 Initial Consult Date Oct Type of Consultation: NEPHROLOGY Referring Provider: DICKSON IVY MD 24 HR Interval Summary Free Text/Dictation s/p Right chest permacath, worked good, Groin juanito Discontinued,still has LUE wound vac Exam/Review of Systems Vital Signs Vitals Vital Signs Date Time Temp Pulse Resp B/P Pulse Ox O2 Delivery O2 Flow Rate FiO2 11/22/16 07:38 97.8 60 18 140/72 100 11/20/16 08:00 Room Air Intake and Output 11/21/16 11/21/16 11/22/16 15:00 23:00 07:00 Intake Total 1560 ml Output Total 6100 ml Balance -4540 ml Exam GENERAL: Awake, alert. HEENT: Normal. Oropharynx clear. NECK: Supple. No JVD, no lymphadenopathy. LUNGS: Clear to auscultation. No crackles, no wheezes. HEART: S1, S2 with regular rhythm. No murmur. ABDOMEN: Soft, nontender, nondistended. Bowel sounds are positive. EXTREMITIES: LUE wound vac in place right upper chest permacath in place Results Result Diagram: 11/22/16 0510 11/22/16 0510 Results 24 hrs Laboratory Tests Test 11/21/16 12:03 11/21/16 17:02 11/21/16 21:27 11/22/16 05:10 Bedside Glucose 67 L 137 93 Anion Gap 21 H Basophils # 0.0 Basophils % 0.5 Blood Urea Nitrogen 56 H Calcium Level 9.0 Carbon Dioxide Level 27 Chloride Level 98 Creatinine 6.02 #H Eosinophils # 0.1 Eosinophils % 2.4 Glucose Level 102 Hematocrit 30.7 L Hemoglobin 10.3 L Lymphocytes # 0.7 L Lymphocytes % 17.4 Mean Corpuscular Hemoglobin 31.3 Mean Corpuscular Hemoglobin Concent 33.6 Mean Corpuscular Volume 93.3 Mean Platelet Volume 9.9 Monocytes # 0.5 Monocytes % 12.4 H Neutrophils # 2.8 Neutrophils % 67.1 Nucleated Red Blood Cells # 0.0 Nucleated Red Blood Cells % 0.0 Platelet Count 171 Potassium Level 5.0 Red Blood Count 3.29 L Red Cell Distribution Width 12.9 Sodium Level 141 White Blood Count 4.2 L Test 11/22/16 07:52 Bedside Glucose 93 Medications Medications Current Medications Ondansetron HCl (Zofran Inj) 4 mg Q6H PRN IV NAUSEA AND/OR VOMITING; Start at 20:30 Acetaminophen (Tylenol Tab) 650 mg Q6H PRN PO PAIN LEVEL 1-3 OR FEVER Last administered on 11/21/16 21:35; Admin Dose 650 MG; Start 11/14/16 at 20:30 Morphine Sulfate (morphine) 2 mg Q4H PRN IV SEVERE PAIN LEVEL 7-10 Last administered on 11/16/16 21:53; Admin Dose 2 MG; Start 11/14/16 at 20:30 Docusate Sodium (Colace) 100 mg Q12H PRN PO CONSTIPATION; Start 11/14/16 at 20: 30 Heparin Sodium (Porcine) (Heparin (5000 Units/0.5 ml)) 5,000 unit Q8 SC Last administered on 11/21/16 14:30; Admin Dose 5,000 UNIT; Start 11/14/16 at 22:00 Amlodipine Besylate (Norvasc) 10 mg DAILY PO Last administered on 11/22/16 08: 03; Admin Dose 10 MG; Start 11/14/16 at 20:30 Clonidine (Catapres) 0.1 mg QID PO Last administered on 11/22/16 08:05; Admin Dose 0.1 MG; Start 11/14/16 at 21:00 Hydralazine HCl (Apresoline) 10 mg Q6 PRN IV SBP>170; Start 11/14/16 at 20:30 Diagnostic Test (Pha) (Accucheck) 1 ea 02 XX ; Start 11/15/16 at 02:00 Atorvastatin Calcium (Lipitor) 20 mg HS PO Last administered on 11/21/16 21:23 ; Admin Dose 20 MG; Start 11/14/16 at 21:00 Acetaminophen (Tylenol Tab) 650 mg Q4H PRN PO PAIN AND OR ELEVATED TEMP Last administered on 11/15/16 20:41; Admin Dose 650 MG; Start 11/14/16 at 20:30 Miscellaneous Information 1 ea NOTE XX ; Start 11/14/16 at 20:30 Glucose (Glutose) 15 gm Q15M PRN PO DECREASED GLUCOSE; Start 11/14/16 at 20:30 Glucose (Glutose) 22.5 gm Q15M PRN PO DECREASED GLUCOSE; Start 11/14/16 at 20: 30 Dextrose (D50w Syringe) 25 ml Q15M PRN IV DECREASED GLUCOSE Last administered on 11/21/16 12:18; Admin Dose 25 ML; Start 11/14/16 at 20:30 Dextrose (D50w Syringe) 50 ml Q15M PRN IV DECREASED GLUCOSE; Start 11/14/16 at 20:30 Glucagon (Glucagen) 1 mg Q15M PRN IM DECREASED GLUCOSE; Start 11/14/16 at 20:30 Glucose (Glutose) 15 gm Q15M PRN BUCCAL DECREASED GLUCOSE; Start 11/14/16 at 20 :30 Famotidine (Pepcid) 20 mg DAILY PO Last administered on 11/22/16 08:02; Admin Dose 20 MG; Start 11/15/16 at 09:00 YA HAZEL MD Nov 22, 2016 08:42
--- NOTE | 2016-11-22 12:02 | CONS ---
Date/Time of Note Date/Time of Note DATE: 11/22/16 TIME: 12:00 Assessment/Plan Assessment/Plan Chief Complaint/Hosp Course SUBJECTIVE: No acute changes. The patient is alert, denies pain, looks comfortable, no fevers. INDWELLINGS: Right IJ permacath 11/21 ANTIMICROBIALS: 1. IV vancomycin. PHYSICAL EXAMINATION: GENERAL: This is a well-developed, middle-aged man who is alert, in no distress. HEENT: Head atraumatic, normocephalic. Sclerae anicteric. Buccal mucosa pink. NECK: Supple. CHEST: Rise symmetrical. Breath sounds clear. HEART: S1, S2. ABDOMEN: Soft, bowel sounds present. EXTREMITIES: Left upper extremity wound VAC present at the upper arm. ASSESSMENT: 1. Status post excision and ligation of infected left upper extremity graft and placement of wound VAC. 2. End-stage renal disease, hemodialysis dependent. 3. Hypertension. 4. Diabetes. PLAN: The patient remains stable. Intraoperative cultures negative, will complete Vanco for 7 more days. DW staff Problems: Consultation Date/Type/Reason Admit Date/Time Nov 14, 2016 at 18:30 Type of Consultation: ID Referring Provider: DICKSON IVY MD Exam/Review of Systems Vital Signs Vitals Vital Signs Date Time Temp Pulse Resp B/P Pulse Ox O2 Delivery O2 Flow Rate FiO2 11/22/16 07:38 97.8 60 18 140/72 100 11/20/16 08:00 Room Air Intake and Output 11/21/16 11/21/16 11/22/16 15:00 23:00 07:00 Intake Total 1560 ml Output Total 6100 ml Balance -4540 ml Results Result Diagram: 11/22/16 0510 11/22/16 0510 Results 24 hrs Laboratory Tests Test 11/21/16 12:03 11/21/16 17:02 11/21/16 21:27 11/22/16 05:10 Bedside Glucose 67 L 137 93 Anion Gap 21 H Basophils # 0.0 Basophils % 0.5 Blood Urea Nitrogen 56 H Calcium Level 9.0 Carbon Dioxide Level 27 Chloride Level 98 Creatinine 6.02 #H Eosinophils # 0.1 Eosinophils % 2.4 Glucose Level 102 Hematocrit 30.7 L Hemoglobin 10.3 L Lymphocytes # 0.7 L Lymphocytes % 17.4 Mean Corpuscular Hemoglobin 31.3 Mean Corpuscular Hemoglobin Concent 33.6 Mean Corpuscular Volume 93.3 Mean Platelet Volume 9.9 Monocytes # 0.5 Monocytes % 12.4 H Neutrophils # 2.8 Neutrophils % 67.1 Nucleated Red Blood Cells # 0.0 Nucleated Red Blood Cells % 0.0 Platelet Count 171 Potassium Level 5.0 Red Blood Count 3.29 L Red Cell Distribution Width 12.9 Sodium Level 141 White Blood Count 4.2 L Test 11/22/16 07:52 11/22/16 11:26 Bedside Glucose 93 126 Medications Medications Current Medications Ondansetron HCl (Zofran Inj) 4 mg Q6H PRN IV NAUSEA AND/OR VOMITING; Start at 20:30 Acetaminophen (Tylenol Tab) 650 mg Q6H PRN PO PAIN LEVEL 1-3 OR FEVER Last administered on 11/21/16 21:35; Admin Dose 650 MG; Start 11/14/16 at 20:30 Morphine Sulfate (morphine) 2 mg Q4H PRN IV SEVERE PAIN LEVEL 7-10 Last administered on 11/16/16 21:53; Admin Dose 2 MG; Start 11/14/16 at 20:30 Docusate Sodium (Colace) 100 mg Q12H PRN PO CONSTIPATION; Start 11/14/16 at 20: 30 Heparin Sodium (Porcine) (Heparin (5000 Units/0.5 ml)) 5,000 unit Q8 SC Last administered on 11/21/16 14:30; Admin Dose 5,000 UNIT; Start 11/14/16 at 22:00 Amlodipine Besylate (Norvasc) 10 mg DAILY PO Last administered on 11/22/16 08: 03; Admin Dose 10 MG; Start 11/14/16 at 20:30 Clonidine (Catapres) 0.1 mg QID PO Last administered on 11/22/16 08:05; Admin Dose 0.1 MG; Start 11/14/16 at 21:00 Hydralazine HCl (Apresoline) 10 mg Q6 PRN IV SBP>170; Start 11/14/16 at 20:30 Diagnostic Test (Pha) (Accucheck) 1 ea 02 XX ; Start 11/15/16 at 02:00 Atorvastatin Calcium (Lipitor) 20 mg HS PO Last administered on 11/21/16 21:23 ; Admin Dose 20 MG; Start 11/14/16 at 21:00 Acetaminophen (Tylenol Tab) 650 mg Q4H PRN PO PAIN AND OR ELEVATED TEMP Last administered on 11/15/16 20:41; Admin Dose 650 MG; Start 11/14/16 at 20:30 Miscellaneous Information 1 ea NOTE XX ; Start 11/14/16 at 20:30 Glucose (Glutose) 15 gm Q15M PRN PO DECREASED GLUCOSE; Start 11/14/16 at 20:30 Glucose (Glutose) 22.5 gm Q15M PRN PO DECREASED GLUCOSE; Start 11/14/16 at 20: 30 Dextrose (D50w Syringe) 25 ml Q15M PRN IV DECREASED GLUCOSE Last administered on 11/21/16 12:18; Admin Dose 25 ML; Start 11/14/16 at 20:30 Dextrose (D50w Syringe) 50 ml Q15M PRN IV DECREASED GLUCOSE; Start 11/14/16 at 20:30 Glucagon (Glucagen) 1 mg Q15M PRN IM DECREASED GLUCOSE; Start 11/14/16 at 20:30 Glucose (Glutose) 15 gm Q15M PRN BUCCAL DECREASED GLUCOSE; Start 11/14/16 at 20 :30 Famotidine (Pepcid) 20 mg DAILY PO Last administered on 11/22/16 08:02; Admin Dose 20 MG; Start 11/15/16 at 09:00 GERTA HENRY NP Nov 22, 2016 12:02
--- NOTE | 2016-11-22 16:14 | PN ---
Date/Time of Note Date/Time of Note DATE: 11/22/16 TIME: 16:11 Assessment/Plan VTE Prophylaxis VTE Prophylaxis Intervention: SCD's Lines/Catheters IV Catheter Type (from [facility] permacath Urinary Cath still in place: No Assessment/Plan Chief Complaint/Hosp Course ASSESSMENT AND PLAN: - Possible infection of arteriovenous graft. Dr. Peguero is followed patient in infectious disease consultation. Continue antibiotics per ID. Status post vascular intervention on left upper extremity graft. Patient needs 7 more days of vancomycin per ID recommendations. - Thrombosed left upper extremity arteriovenous graft, status post excision, ligation, and debridement of the graft by Dr. Ortiz, vascular surgery. - End-stage renal disease. Dr. Mejía is following the patient in nephrology consultation. Continue hemodialysis via right femoral Reese catheter. - Hypertension. Continue patient on Norvasc and Catapres. Hydralazine p.r.n. for systolic blood pressure above 170. - Hyperlipidemia. Continue Lipitor. - Diabetes mellitus type 2 with hemoglobin A1c 7.6. Continue metformin and NovoLog per mild algorithm sliding scale. - Anemia of chronic disease. Continue to monitor hemoglobin and hematocrit. - Hemodialysis access. Patient is status post right femoral catheter insertion and subsequent removal. Patient is status post right chest permacath placement. Continue heparin for deep venous thrombosis prophylaxis and Pepcid for peptic ulcer disease prophylaxis. Further recommendations based on clinical course. Plan of care discussed with Dr. Alatorre. Problems: Subjective 24 Hr Interval Summary Free Text/Dictation Patient denies any fever, pain is well controlled. Exam/Review of Systems Vital Signs Vitals Vital Signs Date Time Temp Pulse Resp B/P Pulse Ox O2 Delivery O2 Flow Rate FiO2 11/22/16 07:38 97.8 60 18 140/72 100 11/20/16 08:00 Room Air Intake and Output 11/21/16 11/21/16 11/22/16 15:00 23:00 07:00 Intake Total 1560 ml Output Total 6100 ml Balance -4540 ml Exam PHYSICAL ASSESSMENT: GENERAL: Well-developed, well-nourished gentleman currently is awake, alert. HEENT: Head is atraumatic, normocephalic. PERRLA. NECK: Supple. No mass or thyromegaly. CHEST: Sounds clear bilaterally. CARDIOVASCULAR: Normal S1, S2. No murmurs, gallops, clicks, rubs present. ABDOMEN: Round, soft, nondistended, nontender. Bowel sounds present. No guarding, no rebound tenderness. EXTREMITIES: The patient's left upper extremity arteriovenous fistula site with wound vac. Lower extremities: There is no edema, clubbing, cyanosis. Pulses equal bilaterally 2+. R fem HD cath R chest permacath Results Result Diagram: 11/22/16 0510 11/22/16 0510 Results 24 hrs Laboratory Tests Test 11/21/16 17:02 11/21/16 21:27 11/22/16 05:10 11/22/16 07:52 Bedside Glucose 137 93 93 Anion Gap 21 H Basophils # 0.0 Basophils % 0.5 Blood Urea Nitrogen 56 H Calcium Level 9.0 Carbon Dioxide Level 27 Chloride Level 98 Creatinine 6.02 #H Eosinophils # 0.1 Eosinophils % 2.4 Glucose Level 102 Hematocrit 30.7 L Hemoglobin 10.3 L Lymphocytes # 0.7 L Lymphocytes % 17.4 Mean Corpuscular Hemoglobin 31.3 Mean Corpuscular Hemoglobin Concent 33.6 Mean Corpuscular Volume 93.3 Mean Platelet Volume 9.9 Monocytes # 0.5 Monocytes % 12.4 H Neutrophils # 2.8 Neutrophils % 67.1 Nucleated Red Blood Cells # 0.0 Nucleated Red Blood Cells % 0.0 Platelet Count 171 Potassium Level 5.0 Red Blood Count 3.29 L Red Cell Distribution Width 12.9 Sodium Level 141 White Blood Count 4.2 L Test 11/22/16 11:26 Bedside Glucose 126 Medications Medications Current Medications Ondansetron HCl (Zofran Inj) 4 mg Q6H PRN IV NAUSEA AND/OR VOMITING; Start at 20:30 Acetaminophen (Tylenol Tab) 650 mg Q6H PRN PO PAIN LEVEL 1-3 OR FEVER Last administered on 11/21/16 21:35; Admin Dose 650 MG; Start 11/14/16 at 20:30 Morphine Sulfate (morphine) 2 mg Q4H PRN IV SEVERE PAIN LEVEL 7-10 Last administered on 11/16/16 21:53; Admin Dose 2 MG; Start 11/14/16 at 20:30 Docusate Sodium (Colace) 100 mg Q12H PRN PO CONSTIPATION; Start 11/14/16 at 20: 30 Heparin Sodium (Porcine) (Heparin (5000 Units/0.5 ml)) 5,000 unit Q8 SC Last administered on 11/22/16 14:18; Admin Dose 5,000 UNIT; Start 11/14/16 at 22:00 Amlodipine Besylate (Norvasc) 10 mg DAILY PO Last administered on 11/22/16 08: 03; Admin Dose 10 MG; Start 11/14/16 at 20:30 Clonidine (Catapres) 0.1 mg QID PO Last administered on 11/22/16 08:05; Admin Dose 0.1 MG; Start 11/14/16 at 21:00 Hydralazine HCl (Apresoline) 10 mg Q6 PRN IV SBP>170; Start 11/14/16 at 20:30 Diagnostic Test (Pha) (Accucheck) 1 ea 02 XX ; Start 11/15/16 at 02:00 Atorvastatin Calcium (Lipitor) 20 mg HS PO Last administered on 11/21/16 21:23 ; Admin Dose 20 MG; Start 11/14/16 at 21:00 Acetaminophen (Tylenol Tab) 650 mg Q4H PRN PO PAIN AND OR ELEVATED TEMP Last administered on 11/15/16 20:41; Admin Dose 650 MG; Start 11/14/16 at 20:30 Miscellaneous Information 1 ea NOTE XX ; Start 11/14/16 at 20:30 Glucose (Glutose) 15 gm Q15M PRN PO DECREASED GLUCOSE; Start 11/14/16 at 20:30 Glucose (Glutose) 22.5 gm Q15M PRN PO DECREASED GLUCOSE; Start 11/14/16 at 20: 30 Dextrose (D50w Syringe) 25 ml Q15M PRN IV DECREASED GLUCOSE Last administered on 11/21/16 12:18; Admin Dose 25 ML; Start 11/14/16 at 20:30 Dextrose (D50w Syringe) 50 ml Q15M PRN IV DECREASED GLUCOSE; Start 11/14/16 at 20:30 Glucagon (Glucagen) 1 mg Q15M PRN IM DECREASED GLUCOSE; Start 11/14/16 at 20:30 Glucose (Glutose) 15 gm Q15M PRN BUCCAL DECREASED GLUCOSE; Start 11/14/16 at 20 :30 Famotidine (Pepcid) 20 mg DAILY PO Last administered on 11/22/16 08:02; Admin Dose 20 MG; Start 11/15/16 at 09:00 KADEEM LEIGH Nov 22, 2016 16:14
[2016-11-22 19:30] VITALS: BP 123/72; RESP 18
[2016-11-22] MEDS: ATORVASTATIN 20 MG TAB PO SCH (20:51)
[2016-11-23] MEDS: ACCUCHECK XX SCH (01:10)
[2016-11-23] MEDS: HEPARIN 5,000 UNIT/0.5 ML SYG SC SCH (05:38)
--- NOTE | 2016-11-23 08:14 | CONS ---
Date/Time of Note Date/Time of Note DATE: 11/23/16 TIME: 08:12 Assessment/Plan Assessment/Plan Additional Assessment/Plan 1. End-stage renal disease on hemodialysis Monday, Monday, Monday. 2. Left upper extremity arteriovenous fistula graft creations, site infections , concerned about infection getting worse. 3. Hypertension. 4. Diabetes mellitus. 5. History of recent admission for left upper extremity arteriovenous fistula site cellulitis, has been treated with intravenous antibiotics. PLAN: blood cx negative s/p S/P LUE graft ligation and excision,wound vac in plac,s/p Right chest permacath , juanito catheter has been discontinued IV abx for infection will continue HD MWF pt wants to leave AMA.he is going to need IV abx for his LUE AVG infection which is removed.he gets HD on Monday and Monday at [facility], he has been explained about risks and complications of signing of AMA. he understood and verbalized understanding and signed papers for AMA. Consultation Date/Type/Reason Admit Date/Time Nov 14, 2016 at 18:30 Initial Consult Date Oct Type of Consultation: NEPHROLOGY Referring Provider: DICKSON IVY MD 24 HR Interval Summary Free Text/Dictation pt stable, has a permacath, he wants to leave AMA Exam/Review of Systems Vital Signs Vitals Vital Signs Date Time Temp Pulse Resp B/P Pulse Ox O2 Delivery O2 Flow Rate FiO2 11/22/16 19:30 98.0 71 18 123/72 100 11/20/16 08:00 Room Air Intake and Output 11/22/16 11/22/16 11/23/16 15:00 23:00 07:00 Intake Total 1080 ml 950 ml Output Total 2 ml Balance 1080 ml 948 ml Exam GENERAL: Awake, alert. HEENT: Normal. Oropharynx clear. NECK: Supple. No JVD, no lymphadenopathy. LUNGS: Clear to auscultation. No crackles, no wheezes. HEART: S1, S2 with regular rhythm. No murmur. ABDOMEN: Soft, nontender, nondistended. Bowel sounds are positive. EXTREMITIES: LUE wound vac in place right upper chest permacath in place Results Result Diagram: 11/22/16 0510 11/22/16 0510 Results 24 hrs Laboratory Tests Test 11/22/16 11:26 11/22/16 17:24 11/22/16 20:53 Bedside Glucose 126 103 112 YA HAZEL MD Nov 23, 2016 08:14
== END 2016-11-23 08:00 | disposition left against medical advice (07) | DRG 252 ==
LOC: MS2 18:30
PROVIDERS: ADMIT Internal Medicine; ATTEND Internal Medicine
PROC: 06HM33Z Insertion of Infusion Device into Right Femoral Vein, Percutaneous Approach (ICD-10-PCS; 2016-11-15)
PROC: B54BZZA Ultrasonography of Right Lower Extremity Veins, Guidance (ICD-10-PCS; 2016-11-15)
PROC: 5A1D60Z (ICD-10-PCS; 2016-11-15)
PROC: 03QY0ZZ Repair Upper Artery, Open Approach (ICD-10-PCS; 2016-11-16)
PROC: 05PY0JZ Removal of Synthetic Substitute from Upper Vein, Open Approach (ICD-10-PCS; principal; 2016-11-16 10:00)
PROC: 02HV33Z Insertion of Infusion Device into Superior Vena Cava, Percutaneous Approach (ICD-10-PCS; 2016-11-21)
PROC: B548ZZA Ultrasonography of Superior Vena Cava, Guidance (ICD-10-PCS; 2016-11-21)
DX: T82.7XXA Infection and inflammatory reaction due to other cardiac and vascular devices, implants and grafts, initial encounter (principal); N18.6 End stage renal disease; T82.868A Thrombosis due to vascular prosthetic devices, implants and grafts, initial encounter; I12.0 Hypertensive chronic kidney disease with stage 5 chronic kidney disease or end stage renal disease; Z99.2 Dependence on renal dialysis; I25.10 Atherosclerotic heart disease of native coronary artery without angina pectoris; E11.40 Type 2 diabetes mellitus with diabetic neuropathy, unspecified; E11.319 Type 2 diabetes mellitus with unspecified diabetic retinopathy without macular edema; E11.22 Type 2 diabetes mellitus with diabetic chronic kidney disease; D63.8 Anemia in other chronic diseases classified elsewhere; E78.5 Hyperlipidemia, unspecified; Y71.3 Surgical instruments, materials and cardiovascular devices (including sutures) associated with adverse incidents
CPT/HCPCS: 71020; 80048; 80053; 80202; 82962; 85025; 85049; 85610; 85670; 85730; 87040; 87070; 87081; 90935; 93005; C1750; J0690; J1644; J1815; J1956; J2270; J2795; J3010; J3370; J7040; J7042

== ENCOUNTER → 2017-01-12 | Outpatient (CLI) | payer MEDICARE, OTHER ==
[~2017-01-12] MED LIST changes: +LIDOCAINE 1% (MPF) 5 ML VIAL SC ONE
[2017-01-12 08:59] LABS: ADD SCAN DIFF NO
[2017-01-12 09:24] LABS: BASOPHILS % 0.6 % (0.0-2.0); EOSINOPHILS # 0.1 10^3/ul (0.0-0.5); EOSINOPHILS % 2.6 % (0.0-7.0); HEMATOCRIT 39.3 % (42.0-52.0); HEMOGLOBIN 13.1 g/dl (14.0-18.0); LYMPHOCYTES # 1.1 10^3/ul (0.8-2.9); LYMPHOCYTES % 20.8 % (15.0-51.0); MEAN CORPUSCULAR HEMOGLOBIN 31.5 pg (29.0-33.0); MEAN CORPUSCULAR HGB CONC 33.3 g/dl (32.0-37.0); MEAN CORPUSCULAR VOLUME 94.5 fl (82.0-101.0); MONOCYTE # 0.6 10^3/ul (0.3-0.9); MONOCYTES % 10.6 % (0.0-11.0); NEUTROPHIL # 3.5 10^3/ul (1.6-7.5); NEUTROPHILS % 65.4 % (39.0-77.0); PLATELET COUNT 266 10^3/UL (140-415); RED BLOOD COUNT 4.16 10^6/ul (4.70-6.10); RED CELL DISTRIBUTION WIDTH 12.2 % (11.5-14.5); WHITE BLOOD COUNT 5.4 10^3/ul (4.8-10.8)
[2017-01-12 09:36] LABS: POTASSIUM 5.4 mmol/L (3.5-5.1)
[2017-01-12 09:39] LABS: CALCIUM 8.9 mg/dl (8.4-10.2); CREATININE 6.24 mg/dl (0.61-1.24)
[2017-01-12 10:07] LABS: INR 0.91; PROTIME 12.3 Sec (12.2-14.2)
[2017-01-12 10:10] LABS: PARTIAL THROMBOPLASTIN TIME 25.1 Sec (25.0-35.0)
--- NOTE | 2017-01-12 11:09 | RADRPT ---
PROCEDURE: XR Chest. CLINICAL INDICATION: PRE-OP TECHNIQUE: Single frontal view of the chest was obtained. COMPARISON: Chest x-ray from 11/15/2016 FINDINGS: There has been interval placement of a right-sided Perma-Cath with its tip at the distal SVC. The heart and mediastinum are within normal limits. There are no definite focal infiltrates. There is no significant pleural effusion or pneumothorax. IMPRESSION: Interval placement of a right-sided Perma-Cath with its tip at the distal SVC. No focal infiltrates or effusions. RPTAT: EE Physician Daniel Date Time Electronically viewed and signed by Saul Carvalho Physician on 01/12/2017 11:09 /
[2017-01-12 13:51] LABS: ADD UMIC YES; URINE BILIRUBIN (Dip) 1+ (NEGATIVE); URINE BLOOD (Dip) NEGATIVE (NEGATIVE); URINE COLOR YELLOW (YELLOW); URINE GLUCOSE (Dip) NEGATIVE (NEGATIVE); URINE KETONES (Dip) 15 (NEGATIVE); URINE LEUKOCYTE ESTERASE (Dip) NEGATIVE (NEGATIVE); URINE NITRITE (Dip) NEGATIVE (NEGATIVE); URINE TOTAL PROTEIN (Dip) 4+ (NEGATIVE); URINE UROBILINOGEN (Dip) 0.2 E.U./dL (0.1-1.0)
[2017-01-12 14:17] LABS: BACTERIA,URINE FEW; ICTOTEST NEGATIVE (NEGATIVE); URINE RBCS 0-2 /HPF (0)
--- NOTE | 2017-01-13 09:32 | RADRPT ---
Vent Rate: 71 bpm RR Interval: 0 msec [place] Interval: 148 msec QRS Duration: 106 msec QT Interval: 398 msec QTC Interval: 432 msec P-R-T [place]: 65 - -12 - 39 degrees Normal sinus rhythm Incomplete right bundle branch block Minimal voltage criteria for LVH, may be normal variant Borderline ECG Electronically Signed By: Mick Quigley [id number]
== END | disposition home or self-care (01) ==
LOC: RAD 08:41
PROVIDERS: ATTEND Student in an Organized Health Care Education/Training Program
DX: Z01.810 Encounter for preprocedural cardiovascular examination (principal); N18.6 End stage renal disease
CPT/HCPCS: 71010; 80048; 81001; 81003; 85025; 85610; 85730; 93005

== ENCOUNTER → 2017-06-13 | Outpatient (CLI) | payer MEDICARE, OTHER ==
[~2017-06-13] MED LIST changes: -LIDOCAINE 1% (MPF) 5 ML VIAL SC ONE
--- NOTE | 2017-06-13 12:33 | RADRPT ---
PROCEDURE: Chest radiograph CLINICAL INDICATION: Preoperative examination. COMPARISON: Radiograph from 01/12/2017. TECHNIQUE: Single frontal chest radiograph. FINDINGS: Dual-lumen right internal jugular dialysis catheter terminates at the cavoatrial junction. The lungs are clear. No pleural effusion or focal parenchymal opacity. The cardiomediastinal silhouette is normal. No suspicious bone lesion. Mild degenerative changes of the thoracic spine. IMPRESSION: 1. No acute cardiopulmonary abnormality. 2. Right internal jugular dialysis catheter terminates in expected position. RPTAT: [facility] Physician Mary Date Time Electronically viewed and signed by Physician Mary on 06/13/2017 12:33 LG/
--- NOTE | 2017-06-14 00:15 | RADRPT ---
Vent Rate: 72 bpm RR Interval: 0 msec [place] Interval: 152 msec QRS Duration: 100 msec QT Interval: 412 msec QTC Interval: 451 msec P-R-T [place]: 59 - 19 - 42 degrees Normal sinus rhythm ST elevation, probably due to early repolarization Borderline ECG Electronically Signed By: Mick Quigley [id number]
== END | disposition home or self-care (01) ==
LOC: LAB 08:56
PROVIDERS: ATTEND Student in an Organized Health Care Education/Training Program
DX: N18.6 End stage renal disease (principal)
CPT/HCPCS: 71010; 84132; 93005